=== PATIENT | male | born 1955 | race Caucasian/White ===

== ENCOUNTER 2019-12-01 08:04 | Outpatient (CLI) | payer BC, SELFPAY ==
--- NOTE | ~2019-12-01 | US_ITS ---
EXAMINATION: US right upper quadrant EXAM DATE: 12/01/2019 08:31 INDICATION: Elevated liver enzymes. TECHNIQUE: Multiple grayscale and Doppler images of the abdomen right upper quadrant were obtained (b y a technologist who performed the scan) and subsequently reviewed. There is no prior study for dominic almonte. FINDINGS: The pancreatic head and body are normal in appearance. The pancreatic tail is not visualized. There is echogenic liver parenchyma, hepatic steatosis. There are no focal liver lesions identified. Th ere is no evidence of intrahepatic biliary duct dilation. Portal venous flow was seen in the hepatop edal, normal direction and has normal Doppler waveform. No right-sided hydronephrosis. Common bile duct measures 4 mm, which is normal. The gallbladder wall is normal in thickness, with ex pected amount of distention. No sonographic evidence of pericholecystic fluid. There is no cholelit hiases. Technologist performing exam reports patient did not demonstrate sonographic Boss's sign. Please note that this sign is less reliable in patients who have received pain medication. IMPRESSION: 1. Unremarkable abdominal ultrasound exam. Reviewed, dictated and finalized at location A. ING STATION LABORER
== END 2019-12-01 08:05 | disposition home or self-care (01) ==
PROVIDERS: PCP Internal Medicine; Visit Provider Internal Medicine
DX: R79.89 Other specified abnormal findings of blood chemistry (principal)
CPT/HCPCS: 76705

== ENCOUNTER 2019-12-02 08:11 | Outpatient (CLI) | payer BC, SELFPAY ==
--- NOTE | 2019-12-30 10:39 | WPDHOLTEREM ---
Holter/Event Monitor Holter/Event Monitor Date of procedure: 12/02/19 Procedure Type: 30 day event monitor Indications: Palpitations Conclusion: 1. 30 day event monitor between 12/02/19-12/31/19. This is a symptoms or auto- triggered event monitor. There are 10 available transmissions for analysis. 2. Underlying rhythm is sinus rhythm. Based on transmissions, HR range 52-69 bpm. 3. There is one PAC and 3 PVC's in the available transmissions. 4. No supraventricular or ventricular arrhythmias. 5. No significant pauses greater than 3 seconds. 6. Patient reports 4 symptoms of skipped beats and symptom other than listed which demonstrate sinus rhythm, HR range 52-64 bpm and one PVC.
== END 2019-12-02 08:12 | disposition home or self-care (01) ==
LOC: CHSCARD 08:14
PROVIDERS: PCP Internal Medicine; Visit Provider Internal Medicine
DX: R00.2 Palpitations (principal); R94.31 Abnormal electrocardiogram [ECG] [EKG]
CPT/HCPCS: 93270

== ENCOUNTER 2021-10-04 17:02 | Outpatient (CLI) | payer BC, MEDICARE, OTHER, SELFPAY ==
--- NOTE | ~2021-10-04 | XR_ITS ---
EXAMINATION: XR hip BI wo pelvis DATE: 10/04/2021 17:30 INDICATION: Bilateral hip pain with worsening on the left TECHNIQUE: Anteroposterior and frog-leg lateral views of the left hip and anteroposterior and frog-le g lateral views of the right hip were obtained. COMPARISON: None. FINDINGS: Normal alignment at both hips. No fracture or suspected avascular necrosis. There is bilateral decrea sed femoral head neck offset. Moderate left and mild right hip osteoarthritis. Mild right sacroiliac osteoarthritis. Small left iliopsoas enthesopathic ossicle at the left lesser trochanter. Phlebolith in the left hemipelvis. IMPRESSION: 1. Moderate left and mild right hip osteoarthritis. Reviewed, dictated and finalized at location H. RECAPPING MACHINE OPERATOR
--- NOTE | ~2021-10-04 | XR_ITS ---
EXAMINATION: XR lumbar spine 2-3V DATE: 10/04/2021 17:30 INDICATION: Lumbar radiculopathy with bilateral hip pain. TECHNIQUE: Anteroposterior and lateral views of the lumbar spine, and cone-down lateral view of the l umbosacral junction were obtained. COMPARISON: Lumbar spine MR dated 07/14/2005 FINDINGS: No significant change in 3 mm retrolisthesis L5 on S1. Normal alignment and more cephalad lumbar spin e. Vertebral body heights are normal. Interval progression of moderate disc height loss at L5-S1. Mor e cephalad lumbar and lower thoracic disc heights are normal. Lung bases are clear no pleural effusio n. Normal heart size. Unremarkable bowel gas pattern. IMPRESSION: 1. 3 mm retrolisthesis L5 on S1 with progression of now moderate disc height loss at L5-S1. Reviewed, dictated and finalized at [facility]. TY INSURANCE COMMISSIONER IMPRESSION: 1. 3 mm retrolisthesis L5 on S1 with progression of now moderate disc height lo ss at L5-S1.
== END 2021-10-04 17:03 | disposition home or self-care (01) ==
LOC: CHSIMG 17:11
PROVIDERS: PCP Internal Medicine; Visit Provider Internal Medicine
DX: M54.16 Radiculopathy, lumbar region (principal); M25.552 Pain in left hip
CPT/HCPCS: 72100; 73521

== ENCOUNTER 2021-10-21 06:51 | Outpatient (CLI) | payer MEDICARE, OTHER, SELFPAY ==
--- NOTE | ~2021-10-21 | MR_ITS ---
EXAMINATION: MR hip LT wo con DATE: 10/21/2021 08:13 INDICATION: Pain, numbness and tingling radiating into the left lower limb. TECHNIQUE: Magnetic resonance imaging (MRI) of the left hip was performed without intravenous contra st. Sequences included full-field axial PD-weighted FS FSE and T1-weighted FSE, coronal of the pelvis with PD-weighted FS FSE, small field of view of the left hip with axial PD-weighted FS FSE, sagitta l PD-weighted FS FSE and coronal PD weighted FS FSE. COMPARISON: None FINDINGS: Bones/labrum/cartilage: Alignment is normal. No fracture, avascular necrosis or pathologic marrow replacing process. Diffuse degenerative tearing of the bilateral acetabular labrum. Moderate to severe left hip osteoarthritis full/near full-thickness cartilage loss at the superior and anterosuperior right hip joint space with underlying subarticular edema at the superior acetabulum and mild cystlike changes along the anteros uperior left femoral head. Moderate-sized marginal osteophytes along the left femoral head. Additiona l mild to moderate osteoarthritis at the right hip with cystic change along the posterior superior ri m of the right acetabulum. Fluid: Asymmetric small left hip joint effusion/synovitis. Soft tissues: Normal and symmetric muscle bulk and signal in the pelvis and visualized proximal thighs. The iliopso as, gluteal and proximal hamstring tendons are normal. Limited evaluation of visceral organs of the p gabriele is unremarkable. Very small fat-containing left inguinal hernia. No pathologically enlarged pel talisha/inguinal lymphadenopathy. IMPRESSION: 1. Moderate to severe left hip osteoarthritis with diffuse degenerative tearing of the left acetabula r labrum and small left hip joint effusion/synovitis.. 2. Mild to moderate right hip osteoarthritis also with labral degeneration. Reviewed, dictated and finalized at location A. MBLER TRACTOR IMPRESSION: 1. Moderate to severe left hip osteoarthritis with diffuse degenerative tearing of the left acetabular labrum and small left hip joint effusion/synovitis.. 2. Mild to moderate right hip osteoarthritis also with labral degeneration.
--- NOTE | ~2021-10-21 | MR_ITS ---
EXAMINATION: MR lumbar spine wo con DATE: 10/21/2021 08:13 INDICATION: Lumbar radiculopathy. TECHNIQUE: Magnetic resonance imaging (MRI) of the lumbar spine was performed without intravenous con trast. Sequences included sagittal T2-weighted FSE, sagittal T2-weighted FS FSE, sagittal T1-weighted FSE, and axial T2-weighted FSE. COMPARISON: Lumbar spine MRI 07/14/2005, radiographs 10/04/2021 FINDINGS: There is 6 degrees dextrocurvature of thoracolumbar spine. There is 3 mm retrolisthesis of L5 on S1. Vertebral body heights are normal. There is mildly decreased disc height at L1-L2 and L3-L4 and severely decreased disc height at L5-S1 with endplate remodeling. The distal spinal cord signal intensity is normal. The conus medullaris is at T12-L1. The following disc levels are specifically di scussed: L1-L2: The disc is bulging. There is mild bilateral facet joint osteoarthritis. There is mild left ne ural foraminal stenosis. There is mild central canal stenosis. L2-L3: The disc does not extend beyond the endplate margin. There is moderate bilateral facet joint o steoarthritis. There is no neural foraminal stenosis. There is no central canal stenosis. L3-L4: The disc is bulging. There is moderate bilateral facet joint osteoarthritis. There is mild kyler ateral neural foraminal stenosis. There is mild central canal stenosis. L4-L5: The disc is bulging and has an annular fissure. There is mild bilateral facet joint osteoarthr itis. There is mild bilateral neural foraminal stenosis. There is mild central canal stenosis. L5-S1: The disc is bulging with superimposed left central extrusion. There is moderate right and garett re left facet joint osteoarthritis. There is mild bilateral neural foraminal stenosis. There is mild central canal stenosis. There is moderate stenosis of left lateral recess. IMPRESSION: 1. Severe lower lumbar spondylosis. Reviewed, dictated and finalized at location A. INE SETTER AUTOMATIC
== END 2021-10-21 06:52 | disposition home or self-care (01) ==
PROVIDERS: PCP Internal Medicine; Visit Provider Internal Medicine
DX: M54.16 Radiculopathy, lumbar region (principal); M25.552 Pain in left hip
CPT/HCPCS: 72148; 73721

== ENCOUNTER 2022-12-19 11:42 | Outpatient (CLI) | payer MEDICARE, OTHER, SELFPAY ==
--- NOTE | 2022-12-19 12:42 | ECG_ITS ---
Measurements Intervals [place] Rate: 58 P: 35 IA: 166 QRS: 48 QRSD: 101 T: 17 QT: 445 QTc: 439 Interpretive Statements SINUS BRADYCARDIA BASELINE ARTIFACT- I, II, III, AVR, AVL, AVF, V2 BORDERLINE ECG NO PREVIOUS ECG AVAILABLE FOR COMPARISON Electronically Signed On 12-19-2022 13:21:35 INTERNATIONAL ACCOUNT EXECUTIVE by Rosalio Fernandes D.O.
[2022-12-19 13:19] LABS: Basophils Percent Auto 0.3 % (0.2-1.2); Eosinophils Absolute Auto 0.2 K/mm3 (0-0.3); Eosinophils Percent Auto 2.2 % (0-4.4); Hematocrit 43.3 % (42.0-52.0); Hemoglobin 15.4 g/dL (14.0-18.0); Immature Granulocyte Absolute 0.02 K/mm3 (0.00-0.031); Immature Granulocyte Percent A 0.3 % (0-0.5); Lymphocytes Absolute Auto 1.85 K/mm3 (0.9-3.2); Lymphocytes Percent Auto 25.9 % (18.3-44.2); Mean Corpuscular HGB Conc 35.6 g/dl (32-36); Mean Corpuscular Hemoglobin 32.2 pg (26-34); Mean Corpuscular Volume 90.4 fl (80-100); Mean Platelet Volume 9.9 fl (7.4-10.4); Monocytes Absolute Auto 0.7 K/mm3 (0.1-0.6); Monocytes Percent Auto 9.1 % (2.6-8.5); Neutrophils Absolute Auto 4.4 K/mm3 (1.3-6.7); Neutrophils Percent Auto 62.2 % (45.5-73.1); Platelet Count Result 214 k/mm3 (150-375); Red Blood Count 4.79 M/mm3 (4.6-6.20); White Blood Count 7.1 K/mm3 (4.5-10.0)
[2022-12-19 13:23] LABS: Urine Cotinine NEGATIVE
[2022-12-19 13:25] LABS: Albumin Level 4.5 g/dL (3.5-5.1); Anion Gap 4 mmol/L (8-16); Blood Urea Nitrogen 18 mg/dL (9-20); Calcium 8.9 mg/dL (8.4-10.2); Carbon Dioxide 30 mmol/L (22-30); Chloride 105 mmol/L (98-107); Estimated Glomerular Filt Rate > 60; Glucose 94 mg/dL (65-110); Hemoglobin A1C 5.8 % (<5.7); Potassium 4.4 mmol/L (3.4-5.0); Sodium 139 mmol/L (137-145)
== END 2022-12-19 11:43 | disposition home or self-care (01) ==
LOC: ANHSURGERY 11:48
PROVIDERS: PCP Internal Medicine; Visit Provider Orthopaedic Surgery
DX: M16.12 Unilateral primary osteoarthritis, left hip (principal); Z01.818 Encounter for other preprocedural examination; R94.31 Abnormal electrocardiogram [ECG] [EKG]
CPT/HCPCS: 80048; 80307; 82040; 83036; 85025; 87081; 93005

== ENCOUNTER 2023-01-07 00:11 | Day surgery (SDC) | payer MEDICARE, OTHER, SELFPAY ==
[2022-12-19 11:54] VITALS: BMI 27.4
--- NOTE | 2022-12-19 12:16 | PC.NURSE ---
Report to the Outpatient Waiting Room, entrance under the green pavilion located off [facility], at time _0600 on date __01/07/23 . Planned Procedure Time: _0730 . Time changes happen often and if your time is changed the preop area will call you the afternoon before. - You and your visitor will be asked to self-screen and do not enter if you have any COVID symptoms. - Only one visitor is requested with a max of two and NO children visitors are allowed at this time. - The patient visitor may be requested to leave or wait in car when not with patient due to distancing restrictions. - A mask is optional within the hospital at this time. Patients may have clear liquids (water, carbonated beverages, clear teas, apple juice) until 3 hours prior to surgery with a maximum of 20 ounces. - No food from midnight until time of surgery - Infants may have breast milk until 4 hours before surgery, formula 6 hours prior to surgery. - Children will be allowed to drink immediately following surgery. If applicable, please bring a bottle or sippy cup to assist with drinking. Juice, water, soda, and popsicles are readily available. For infants on formula, please bring formula the day of surgery. Pacifiers are allowed. Take the following medications with a SIP of water the morning of surgery: ____NONE DO NOT STOP ANY OF YOUR OTHER PRESCRIPTION MEDICATIONS PRIOR TO SURGERY ?EXCEPT THE FOLLOWING Medications to discontinue per physician IBUPROFEN 7 DAYS PRE OP PER DR NAVA. LAST DOSE 12/30/22 Please no make-up, nail vietnamese, hairspray, perfume, deodorant, or body powder the day of surgery. No jewelry (including any body piercings) or valuables the day of surgery, leave them at home. Please take a shower or bath the night before, or the morning of, surgery with an antibacterial soap. Wear comfortable, loose fitting clothing. Children are encouraged to wear pajamas. - Jewelry must be removed prior to entering the operating room. Rings and piercings that are not removed may be cut off. - The hospital will not accept responsibility for valuables. - Please leave all valuables, including medications, at home the day of surgery. If you are going home after surgery, a licensed lifter/driver must drive you home. - NO public transportation without another adult if you receive anesthesia. - We recommend that an adult stay with you for 24 hours following discharge. - We also recommend that you do not drive, make important decision, drink alcoholic beverages, or take any drugs that were not prescribed by your health care provider for at least 24 hours after your discharge time. For Pediatric surgeries, we recommend two adults accompany the child home. Follow any additional instructions given to you from your surgeon. If you or anyone in your household have experienced Covid symptoms in the past week, please notify your surgeon or the nurse liaison at the phone number below for possible testing. VERBAL AND WRITTEN instructions given to __PATIENT AND PHOEBE and asked if any additional questions and then verbalized understanding. Patient advised to call surgeon office or pre surgery nurse liaison [phone] if any additional questions.
[2022-12-19 12:36] VITALS: BP 142/81; PULSE 58; RESP 18; TEMP 36.5; O2SAT 100
--- NOTE | 2023-01-04 12:24 | PM.IMHP ---
H&P: HPI History of Present Illness Date/Time: 01/04/23 12:24 Chief Complaint: Left hip DJD Narrative: 67-year-old patient of Dr. Santamaria who presents today for a left anterior total hip arthroplasty patient has been having symptoms in the hip for almost a year. Most the pain is in the groin and anterior lateral hip. Patient has been taking [id number] anti-inflammatories without significant improvement of his symptoms. Patient has severe osteoarthritis in the left hip. He feels that he is having symptoms on a daily basis and this is inhibiting his normal daily activities. He feels that his symptoms are severe enough that he is ready to proceed with total hip arthroplasty at this point rather continue nonsurgical treatment. Review of Systems Review of Systems: All systems reviewed & are unremarkable except as noted in HPI and below PMFSH Past Medical History Medical History Hypertension Pain in left leg Surgical History Surgical History Previous back surgery (~2004) Social History Social History Smoking status: Never smoker Additional smoking assessment comments: DENIES ANY FORM OF TOBBACO USE Alcohol intake: current Drinks per week: 3 Substance use: never Lack of Transportation: No Lack of Food: Never True Current Housing: I Have Housing Concerned About Future Housing: No Difficulty Paying Gas/Electric Bills: No Difficulty Paying for Meds: No Currently Unemployed: No Education: Don't Know Difficulty w/ Childcare or Family Care: No Living arrangements: with family Occupation/Education: occupation Spiritual care concerns: No Meds Home Medications and Allergies Home Medications Medication Instructions Recorded Confirmed Type ibuprofen 400 mg tablet 400 mg PO Q6H PRN Pain 12/19/22 12/19/22 History losartan 100 1 tablet PO DAILY 12/19/22 12/19/22 History mg-hydrochlorothiazide 12.5 mg tablet Allergies Allergy/AdvReac Type Severity Reaction Status Date / Time Penicillins Allergy Intermediate HIVES Verified 12/19/22 11:55 Exam Narrative: 67-year-old male, he is 5 ft 11 and 195 lb, BMI is 27. He has normal motor strength to all muscle groups left lower extremity. 2+ dorsalis pedis and posterior artery pulse palpable. His left hip flexes to 120 internally rotates to 0 which causes some anterior lateral hip pain. External rotation to 30 with moderate anterior lateral hip pain. Stinchfield maneuver causes him pain over the anterior groin up to the lateral hip. He has normal abduction strength lateral position. He walks with a mild limp. Skin around the hip and groin crease are normal. He has some numbness to the plantar heel to light touch testing and to the central thigh since his back surgery. Resp: Auscultation: clear to auscultation bilaterally Cardio: Rate: regular rate Rhythm: regular rhythm Assessment and Plan Assessment and plan (1) Hip arthritis: Code(s): M16.10 - Unilateral primary osteoarthritis, unspecified hip Status: Acute Plan 67-year-old male who has severe osteoarthritis left hip with severe symptoms on a daily basis. Again he feels he is ready to proceed with total hip arthroplasty. Surgical procedure as well as the risks and complications were discussed in detail and all questions were answered and we will proceed. Patient will avoid any aspirin ibuprofen products 1 week prior to surgery. He will see his primary care for pre-surgical clearance. We will plan use Eliquis for DVT prophylaxis postoperatively. His nasal swab was negative. Chem panel was all within normal limits creatinine 0.8. Hemoglobin 15.4 and platelets are 214.
[2023-01-07] VITALS (23 sets, daily range): BP systolic 102–137; BP diastolic 58–84; PULSE 56–86; RESP 12–20; TEMP 36.4–36.6; O2SAT 66–100
--- NOTE | ~2023-01-07 | XR_ITS ---
EXAMINATION: XR hip LT 1V w AP pelvis DATE: 01/07/2023 10:58 INDICATION: Left hip arthroplasty. Postop. TECHNIQUE: An anteroposterior view of the pelvis and single view of left hip were obtained. COMPARISON: Pelvis and hip radiograph 10/04/2021 FINDINGS: There is a total left hip arthroplasty in near-anatomic alignment. No fracture. There is mi ld right hip osteoarthritis. There is gas in the left hip joint and in the soft tissues near left hip , consistent with recent surgery. A surgical drain is noted. IMPRESSION: 1. Total left hip arthroplasty in near-anatomic alignment. 2. Mild right hip osteoarthritis. Reviewed, dictated and finalized at location A.
--- NOTE | ~2023-01-07 | XR_ITS ---
EXAMINATION: XR surgery orthopedic DATE: 01/07/2023 10:58 INDICATION: Left hip osteoarthritis. TECHNIQUE: 2 intraoperative fluoroscopic views of left hip were obtained. I was not present. Fluorosc opy exposure time was 59 seconds. COMPARISON: Left hip radiographs 10/04/2021 FINDINGS: There is a total left hip arthroplasty in near-anatomic alignment. No fracture. IMPRESSION: 1. Total left hip arthroplasty in near-anatomic alignment. Reviewed, dictated and finalized at location A.
[2023-01-07] MEDS: LACTATED RINGERS 1,000 ML 30 ML IV CONT ×2 (06:35→10:57)
--- NOTE | 2023-01-07 06:45 | WPDANESEPPF ---
Anes - Initial Pre Proc Eval Procedure: Operation Date: 01/07/23 07:30 Proposed Procedures p Left Total Hip Arthroplasty, Anterior Approach - Jeremías Cardona MD Date/Time: 01/07/23 06:45 Surgeon: Jeremías Cardona MD Pre Op Diagnosis: O A LT Hip Patient Data Age: 67 Gender: M Height: 1.8 m Weight: 89.3 kg Last Vital Signs Temp 36.5 C 12/19/22 12:36 Pulse 58 L 12/19/22 12:36 Resp 18 12/19/22 12:36 BP 142/81 H 12/19/22 12:36 Pulse Ox 100 12/19/22 12:36 O2 Del Method Room Air 12/19/22 12:36 Allergies Allergy/AdvReac Type Severity Reaction Status Date / Time Penicillins Allergy Intermediate HIVES Verified 12/19/22 11:55 Home Medications Medication Instructions Recorded Confirmed Type ibuprofen 400 mg tablet 400 mg PO Q6H PRN Pain 12/19/22 12/19/22 History losartan 100 1 tablet PO DAILY 12/19/22 12/19/22 History mg-hydrochlorothiazide 12.5 mg tablet Patient hx anesthesia problems: none Family hx anesthesia problems: none Results Review: All pre-operative results and documents have been reviewed as part of the pre-operative evaluation. [facility] Past Medical History Medical History (Updated 01/07/23 @ 06:47 by Parth Spence DO) Hip arthritis Hypertension Pain in left leg Surgical History Surgical History Previous back surgery (~2004) Social History Social History Smoking status: Never smoker Additional smoking assessment comments: DENIES ANY FORM OF TOBBACO USE Alcohol intake: current Drinks per week: 3 Substance use: never Lack of Transportation: No Lack of Food: Never True Current Housing: I Have Housing Concerned About Future Housing: No Difficulty Paying Gas/Electric Bills: No Difficulty Paying for Meds: No Currently Unemployed: No Education: Don't Know Difficulty w/ Childcare or Family Care: No Living arrangements: with family Occupation/Education: occupation Spiritual care concerns: No Anes - Eval Final PreProcedure Day of Procedure 03/27/23 06:45 Patient weight: overweight Heart: regular rate and rhythm Lungs: clear to auscultation Airway: Mallampati scale class II Neurological: alert and oriented Last oral intake: >/= 8 hours ASA classification: II Emergent: no Anesthetic plan: proceed Anesthesia type and monitoring: general ETT and standard monitoring Results Review: All pre-operative results and documents have been reviewed as part of the pre-operative evaluation. Informed Consent: The patient's anesthetic plan and its attendant risks and benefits were discussed with the patient/family/POA. Questions were solicited and answers provided to the satisfaction of the patient/family/POA.
--- NOTE | 2023-01-07 07:10 | WPDHPUPDATE1 ---
History and Physical Update Update Date/Time: 01/07/23 07:10 History and Physical has been reviewed, including an updated exam of the patient. There are NO changes in the patient's condition. Risks, benefits, and alternatives have been discussed and questions answered. Patient agrees to proceed with procedure.
[2023-01-07] MEDS: ceFAZolin 2 GM/D5W 50 ML 2 GM/50 ML BAG IVPB (07:23)
[2023-01-07] MEDS: ceFAZolin SODIUM 1 GM VIAL 3 GM (08:09)
[2023-01-07] MEDS: TRANEXAMIC ACID 1,000 MG/10 ML AMPUL 1000 MG IV PUSH (10:22)
[2023-01-07] MEDS: ceFAZolin SODIUM 1 GM VIAL IV PUSH (10:22)
[2023-01-07] MEDS: KETOROLAC 15 MG/ML VIAL (*BKC) IV PUSH ×3 (10:28→22:44)
--- NOTE | 2023-01-07 10:43 | W.PM.PROC2 ---
Procedure Note - Detailed Date of Procedure 01/07/23 Pre-op Diagnosis O A LT Hip Post-op Diagnosis Same Procedure Performed Left total hip arthroplasty direct anterior approach Surgeon Jeremías Cardona MD Manager [employer] Anesthesia General Description of Procedure Patient was brought to the operating room and general anesthesia was administered. He received 2 g Ancef weight based vancomycin 1 g of tranexamic acid preoperatively. A Quispe was placed per Anesthesia. The feet were padded and boots applied and he was transferred to the [facility] table and the left hip prepped draped usual fashion. A 10 cm longitudinal incision was made starting 3 cm lateral to the ASIS. Dissection was carried down through the subcutaneous fat exposing the fascia over the tensor fascia riki which was longitudinally incised in its midportion elevating the fascia over the anterior 50% of the tensor fascia riki muscle. Interval between TFL and rectus femoris developed. He had 2 layers of crossing branches of ascending lateral femoral circumflex vessels and these were both ligated with suture divided. Capsule was exposed anteriorly retractor placed. Hip abducted internally rotated and the gluteus minimus elevated off the lateral capsule. The abductor musculature looked excellent. A an inverted T-incision was made and femoral neck osteotomy made according to preoperative templating. Napkin ring of bone removed. The femoral head was very hypertrophic peripherally on the periphery measured 56 mm diameter. A he had a shallow acetabulum. Hemostasis was achieved the acetabulum exposed and the prominent labrum excised and residual articular cartilage was curetted. Medial osteophyte almost obliterated the fovea the leg was extended externally rotated the table hook in place and the interval between conjoined tendon and piriformis incised which allowed piriformis to flipped not half to recessed the conjoined tendon. The leg back in horizontal position traction external rotation the acetabulum was prepared. We medialized with a 44 Reamer and using fluoroscopy the to assist with reaming, we reamed up to 53 mm which did not reach the periphery and 55 mm Reamer did reach the periphery. The 55 trial had fair bite the 56 would not see. We lightly reamed with a 56 and then chose the 56 [place] shell which we impacted and fully seated with excellent press fit. The cup was flush the anterior rim and about 4 mm proud posteriorly and posterior superiorly. A single screw was placed in the ilium with excellent purchase and the 36 inner diameter polyethylene liner placed without difficulty. The cup was placed at 40? of abduction and anteversion matching his anatomy. The leg was externally rotated extended with the table hook and we broached to a size 6 which was difficult to seat but did have a tiny bit of torsional play. We trialed and I could see that the broach was in a little bit of varus and still undersized a bit and our neck cut is appropriate. We broached to a size 7 which gave excellent torsional stability and was tight in the proximal femur and we trialed and leg lengths were equal and stability was appropriate with appropriate Shuck. Offset looked appropriate radiographically and matched our preoperative template plan. Minimal calcar planing was necessary and the size 7 high offset Actis stem was fully seated with a tight fit. We trialed 1 more time confirming the +5 head was appropriate and after this we cleaned and dried the trunnion and impacted the +5 ceramic 36 mm head. Wound was irrigated with antibiotic solution and hip reduced stability reconfirmed local anesthetic cocktail injected the soft tissues. Superior capsular arthrotomy closed with 1. Vicryl. The fascia closed with running 1. Vicryl drain in the subcu skin with 2 subcutaneous Vicryl and glue EBL was 400 cc. 200 cc given back as Cell Saver. He received 2 additional g of Ancef and 1 more TXA at time of wound closure
--- NOTE | 2023-01-07 11:03 | PM.OP ---
Procedure Note - Brief Procedure Note - Brief Date of procedure: 01/07/23 Pre-op diagnosis: O A LT Hip Left hip DJD Procedure performed: left total hip arthroplasty anterior approach Description of procedure: 67-year-old male who underwent left total hip arthroplasty anterior approach on 01/07. I was involved in the procedure including positioning patient on the OR table 1st assisting to time surgery as well as getting patient to recovery. Total time was 4:00 hours Surgeon: MONI Campoverde
[2023-01-07] MEDS: fentaNYL CITRATE INJ (*CRX) 100 MCG/2 ML VIAL 25 MCG IV PUSH ×6 (11:22→13:13)
--- NOTE | 2023-01-07 14:50 | ADMGEN ---
This patient, Blake Samaniego, was admitted to Medical Room 255-. Patient/family oriented to hospital policies and general routines including ID bracelet, bed and alarms, visiting hours, pain management, procedures, bathroom and other care routines, personal items, smoking policy, room service/diet, and visiting hours. Information on how to activate the Rapid Response Team has been discussed. Patient/Family are encouraged to report perceived risks to care and to ask questions if they do not understand what they are told or what they should do.
[2023-01-07] MEDS: ceFAZolin 1 GM/NS 50 ML 1 GM/50 ML BAG IVPB ×2 (16:05→22:39)
[2023-01-07] MEDS: oxyCODONE HCL (*CRX) 5 MG TAB IR PO ×2 (16:05→20:42)
[2023-01-07] MEDS: ACETAMINOPHEN 500 MG TABLET 1000 MG PO (17:36)
[2023-01-07] MEDS: FAMOTIDINE 20 MG TABLET PO (20:40)
[2023-01-08] MEDS: oxyCODONE HCL (*CRX) 5 MG TAB IR PO ×3 (00:54→10:24)
[2023-01-08] MEDS: ACETAMINOPHEN 500 MG TABLET 1000 MG PO ×2 (00:54→06:01)
[2023-01-08 04:17] VITALS: BP 105/64; PULSE 58; RESP 18; TEMP 36.4; O2SAT 97
[2023-01-08 06:04] LABS: Basophils Percent Auto 0.2 % (0.2-1.2); Eosinophils Percent Auto 0.1 % (0-4.4); Hematocrit 34.5 % (42.0-52.0); Immature Granulocyte Absolute 0.07 K/mm3 (0.00-0.031); Immature Granulocyte Percent A 0.5 % (0-0.5); Lymphocytes Absolute Auto 1.01 K/mm3 (0.9-3.2); Lymphocytes Percent Auto 7.9 % (18.3-44.2); Mean Corpuscular HGB Conc 34.8 g/dl (32-36); Mean Corpuscular Hemoglobin 31.7 pg (26-34); Mean Platelet Volume 9.9 fl (7.4-10.4); Monocytes Absolute Auto 1.3 K/mm3 (0.1-0.6); Monocytes Percent Auto 10.1 % (2.6-8.5); Neutrophils Absolute Auto 10.3 K/mm3 (1.3-6.7); Neutrophils Percent Auto 81.2 % (45.5-73.1); Platelet Count Result 173 k/mm3 (150-375); Red Blood Count 3.79 M/mm3 (4.6-6.20); White Blood Count 12.7 K/mm3 (4.5-10.0)
--- NOTE | 2023-01-08 06:15 | PM.DS ---
DS: Admitting Diagnosis Discharge Date 01/08 Admitting Diagnosis Left hip DJD DS: Discharge Diagnosis Discharge Diagnosis (1) Hip arthritis: Code(s): M16.10 - Unilateral primary osteoarthritis, unspecified hip Status: Acute DS: Summary Hospital Course Hospital Course: 67-year-old male who underwent left anterior total hip arthroplasty on 01/07. Underwent the procedure without complications. Postoperatively he has been afebrile vital signs been stable. Neurovascularly he is intact. His dressing is dry. His drain is out. He was up walking the day of surgery with physical therapy. Pain was controlled with scheduled Tylenol and oxycodone 5 mg. He is on Celebrex 200 mg daily for the 1st 10 days for heterotopic bone formation prophylaxis. He will be discharged home on 01/08. Patient is weight-bearing as tolerated. He is on Eliquis for DVT prophylaxis. He is also on 1 week of doxycycline when he goes home as well. He will be also on Senokot and MiraLax for constipation. Patient was advised to keep leg elevated at home prevent swelling. He may transition to the cane is as comfort allows. The time of dictation morning labs on postop day 1 were not completed yet. Patient was advised any questions or concerns he is to call the office otherwise we will see him at his appointed dates Time Spent with Patient Time attestation: Total time spent providing and/or coordinating discharge services: DS: Data Data Completed and Pending Labs on day of discharge: Labs from last 24 hours 01/08/23 01/08/23 01/07/23 05:24 05:24 06:34 WBC Pending RBC Pending Hgb Pending Hct Pending MCV Pending MCH Pending MCHC Pending RDW Pending Plt Count Pending MPV Pending Immature Gran % (Auto) Pending Neut % (Auto) Pending Lymph % (Auto) Pending [place] % (Auto) Pending Eos % (Auto) Pending Baso % (Auto) Pending Lymph # (Auto) Pending [place] # (Auto) Pending Eos # (Auto) Pending Baso # (Auto) Pending Abs Immat Gran (auto) Pending Absolute Neuts (auto) Pending Absolute Nucleated RBC Pending Nucleated RBC % Pending Sodium Pending Potassium Pending Chloride Pending Carbon Dioxide Pending Anion Gap Pending BUN Pending Creatinine Pending Estim Creat Clear Calc Pending Estimated GFR Pending Glucose Pending Calcium Pending Blood Type O Positive Antibody Screen Negative Discharge Plan Discharge Patient Disposition: Home, Self-Care Discharge Instructions: JEREMÍAS CARDONA M.D [facility], [place] [id number] [place] [address] POST-OPERATIVE DISCHARGE INSTRUCTIONS ANTERIOR TOTAL HIP ARTHROPLASTY 1. Move toes/feet up and down every hour while awake. 2. Be up walking every hour while awake. 3. Use cane in hand opposite of side of hip surgery or walker as comfort allows. Avoid sitting in a chair unless eating, receiving visitors or using the toilet. 4. When resting, lie on back with leg elevated above heart to minimize swelling. Significant swelling could indicate a blood clot and if this occurs, call the office (or go to the ER) to have a venous ultrasound performed. 5. Wound Care: Keep dry sponge on wound for 2 weeks. Use minimal tape. 6. Follow weight bearing status as instructed. 7. May shower with dressing off. Stand Alone Forms: General Discharge Instructions Follow-up/Referrals: Jeremías Cardona MD [Physician] - Keep Reg. Scheduled Appt. Discharge Medications: New celecoxib [Celebrex] 200 mg Capsule 200 mg PO DAILY Qty: 10 0RF polyethylene glycol 3350 [Miralax] 17 gram Powder In Packet 17 g PO QAM Qty: 30 0RF sennosides-docusate sodium [Senokot-S] 8.6-50 mg Tablet 2 tab PO BID Qty: 60 0RF acetaminophen 500 mg Tablet 1,000 mg PO Q6HR Qty: 90 0RF doxycycline hyclate 100 mg Tablet 100 mg PO Q12HR Q
[2023-01-08 06:16] LABS: Anion Gap 3 mmol/L (8-16); Blood Urea Nitrogen 20 mg/dL (9-20); Calcium 8.2 mg/dL (8.4-10.2); Carbon Dioxide 29 mmol/L (22-30); Chloride 103 mmol/L (98-107); Estimated CRCL calculation 68 ml/min; Estimated Glomerular Filt Rate > 60; Glucose 124 mg/dL (65-110); Potassium 4.4 mmol/L (3.4-5.0); Sodium 135 mmol/L (137-145)
--- NOTE | 2023-01-08 06:17 | PM.PNORT ---
Subjective Subjective Date/Time Seen: 01/08/23 06:17 Postop day 1 patient is alert. He is afebrile vital signs are stable. His drain is out. He is up with physical therapy yesterday. Pain overall is well controlled. Neurovascularly he is intact. Plan will be to have the patient work with therapy this morning and then discharge to home either later this morning or early this afternoon. Labs are pending. Objective Data Vital Signs Vital Signs: Vital Signs - 24 hr 01/07/23 06:26 01/07/23 10:57 01/07/23 11:12 Temperature 36.6 C 36.4 C Pulse Rate 56 L 66 66 Respiratory Rate 18 20 16 Blood Pressure 136/83 116/69 102/84 Pulse Oximetry 100 100 100 Oxygen Delivery Room Air Simple Face Mask Simple Face Mask Oxygen Flow Rate 6 6 01/07/23 11:26 01/07/23 11:40 01/07/23 11:55 Temperature Pulse Rate 67 70 70 Respiratory Rate 16 14 17 Blood Pressure 124/81 137/76 126/73 Pulse Oximetry 66 L 97 95 Oxygen Delivery Room Air Room Air Room Air Oxygen Flow Rate 01/07/23 12:10 01/07/23 12:25 01/07/23 12:40 Temperature Pulse Rate 70 73 74 Respiratory Rate 13 13 12 Blood Pressure 116/79 118/76 116/67 Pulse Oximetry 96 96 97 Oxygen Delivery Room Air Room Air Room Air Oxygen Flow Rate 01/07/23 12:55 01/07/23 13:10 01/07/23 13:25 Temperature Pulse Rate 77 80 75 Respiratory Rate 18 14 15 Blood Pressure 124/84 126/80 124/82 Pulse Oximetry 95 95 95 Oxygen Delivery Room Air Room Air Room Air Oxygen Flow Rate 01/07/23 13:40 01/07/23 13:55 01/07/23 14:10 Temperature Pulse Rate 75 70 86 Respiratory Rate 19 14 12 Blood Pressure 118/78 119/73 122/80 Pulse Oximetry 95 98 Oxygen Delivery Room Air Room Air Oxygen Flow Rate 01/07/23 14:25 01/07/23 15:08 01/07/23 15:45 Temperature Pulse Rate 73 Respiratory Rate 12 18 Blood Pressure 123/78 Pulse Oximetry 98 98 Oxygen Delivery Room Air Room Air Room Air Oxygen Flow Rate 01/07/23 14:37 01/07/23 14:52 01/07/23 15:22 Temperature 36.6 C 36.6 C 36.4 C L Pulse Rate 72 69 65 Respiratory Rate 18 18 16 Blood Pressure 119/73 112/75 125/69 Pulse Oximetry 94 98 98 Oxygen Delivery Oxygen Flow Rate 01/07/23 16:22 01/07/23 19:12 01/07/23 23:14 Temperature 36.6 C 36.6 C 36.4 C Pulse Rate 69 70 68 Respiratory Rate 16 18 18 Blood Pressure 111/68 122/68 105/58 L Pulse Oximetry 98 97 97 Oxygen Delivery Oxygen Flow Rate 01/08/23 04:17 Temperature 36.4 C Pulse Rate 58 L Respiratory Rate 18 Blood Pressure 105/64 Pulse Oximetry 97 Oxygen Delivery Oxygen Flow Rate Intake/Output Intake/Output: Intake & Output 01/05/23 01/06/23 01/07/23 01/08/23 23:59 23:59 23:59 23:59 Intake Total 2310 400 Output Total 700 550 Balance 1610 -150 Meds/Results Medications: Active Medications Generic Name Dose Route Start Last Admin Trade Name Freq PRN Reason Stop Dose Admin Acetaminophen 1,000 mg 01/07/23 18:00 01/08/23 06:01 Acetaminophen 500 Mg Tablet PO 1,000 mg Q6HR [facility] Administration Apixaban 2.5 mg 01/08/23 09:00 Apixaban 2.5 Mg Tablet PO 02/11/23 21:01 Q12HR [facility] Celecoxib 200 mg 01/08/23 09:00 Celecoxib 200 Mg Capsule PO DAILY [facility] Doxycycline Hyclate 100 mg 01/08/23 09:00 Doxycycline Hyclate 100 Mg Tablet PO Q12HR [facility] Famotidine 20 mg 01/07/23 21:00 01/07/23 20:40 Famotidine 20 Mg Tablet PO 20 mg Q12HR [facility] Administration Hydrochlorothiazide 12.5 mg 01/08/23 09:00 Hydrochlorothiazide 12.5 Mg Capsule PO QAM [facility] Hydroxyzine HCl 50 mg 01/07/23 14:37 Hydroxyzine Hcl 25 Mg Tablet PO Q4H PRN Itching Vancomycin HCl 1,000 mg in 250 mls @ 250 mls/hr 01/07/23 19:00 01/07/23 19:45 Vancomycin 1,000 Mg/D5w 250 Ml IVPB 01/08/23 07:59 Infused Q12H [facility] Infusion Cefazolin Sodium 1 gm in 50 mls @ 100 mls/hr 01/07/23 15:00 01/07/23 23:10 Ancef 1 Gm/Ns 50 Ml IVPB 01/08/23 07:29 Infused Q8H [facility] Infusion Lo
[2023-01-08] MEDS: ceFAZolin 1 GM/NS 50 ML 1 GM/50 ML BAG IVPB (06:19)
[2023-01-08] MEDS: SENNA/DOCUSATE SODIUM TABLET 2 TAB PO (08:07)
[2023-01-08] MEDS: DOXYCYCLINE HYCLATE 100 MG TABLET PO (08:08)
[2023-01-08] MEDS: CELECOXIB 200 MG CAPSULE PO (08:08)
[2023-01-08] MEDS: FAMOTIDINE 20 MG TABLET PO (08:08)
[2023-01-08] MEDS: APIXABAN 2.5 MG TABLET PO (08:08)
[2023-01-08] MEDS: LOSARTAN POTASSIUM 100 MG TABLET PO (08:09)
[2023-01-08] MEDS: polyethylene glycoL 3350 17 GM POWD.PACK PO (08:09)
[2023-01-08] MEDS: hydroCHLOROthiazide 12.5 MG CAPSULE PO (08:09)
--- NOTE | 2023-01-08 09:57 | P.PNAN_ITS ---
Anes - Prog Note Post-Op Date/Time: 01/08/23 09:57 Cardiovascular status: normal Respiratory status: normal Airway patency: baseline Mental status: baseline Post-Op hydration status: normal Vital Signs: Last Vital Signs Temp 36.4 C 01/08/23 04:17 Pulse 58 L 01/08/23 04:17 Resp 18 01/08/23 04:17 BP 105/64 01/08/23 04:17 Pulse Ox 97 01/08/23 04:17 O2 Del Method Room Air 01/07/23 15:45 O2 Flow Rate 6 01/07/23 11:12 Pain Score (VAS): 11/23 I/O: Intake & Output 01/07/23 01/08/23 01/08/23 23:59 07:59 15:59 Intake Total 1760 450 480 Output Total 700 550 Balance 1060 -100 480 Laboratory Tests 01/08/23 05:24 01/08/23 05:24 01/08/23 01/08/23 05:24 05:24 WBC 12.7 H RBC 3.79 L Hgb 12.0 L D Hct 34.5 L MCV 91.0 MCH 31.7 MCHC 34.8 RDW 12.0 Plt Count 173 MPV 9.9 Immature Gran % (Auto) 0.5 Neut % (Auto) 81.2 H Lymph % (Auto) 7.9 L [place] % (Auto) 10.1 H Eos % (Auto) 0.1 Baso % (Auto) 0.2 Lymph # (Auto) 1.01 [place] # (Auto) 1.3 H Eos # (Auto) 0.0 Baso # (Auto) 0.0 Abs Immat Gran (auto) 0.07 H Absolute Neuts (auto) 10.3 H Absolute Nucleated RBC 0.0 Nucleated RBC % 0.0 Sodium 135 L Potassium 4.4 Chloride 103 Carbon Dioxide 29 Anion Gap 3 L BUN 20 Creatinine 1.00 Estim Creat Clear Calc 68 Estimated GFR > 60 Glucose 124 H Calcium 8.2 L Post-procedural complaints: none Patient Feedback: Patient satisfied with anesthetic care.
[2023-01-08 10:00] VITALS: BP 115/62; PULSE 63; RESP 18; TEMP 36.7; O2SAT 98
== END 2023-01-08 11:27 | disposition home or self-care (01) ==
LOC: ANHSURGERY 06:18 → ANH2MED 14:42
PROVIDERS: Physician Assistant Surgical; PCP Internal Medicine; Visit Provider Orthopaedic Surgery
PROC: (CPT 27130; principal; 2023-01-07 07:30)
DX: M16.12 Unilateral primary osteoarthritis, left hip (principal); I10 Essential (primary) hypertension
CPT/HCPCS: 27130; 36415; 73501; 80048; 85025; 86850; 86900; 86901; 97110; 97161; 97165; 97530; 97535; 99199; A9270; C1776; J0171; J0690; J1100; J1170; J1885; J2250; J2270; J2405; J2704; J2710; J2795; J3010; J3370; J7030; J7120

== ENCOUNTER 2023-01-11 18:39 | Emergency (ER) | payer MEDICARE, OTHER, SELFPAY ==
[2023-01-11 18:43] VITALS: BP 150/83; PULSE 70; RESP 18; TEMP 36.6; O2SAT 100
--- NOTE | 2023-01-11 19:05 | ED.GENADULT ---
HPI - General Adult General Chief complaint: Extremity Problem,Nontraumatic Stated complaint: left leg infection/post op Time Seen by Provider: 01/11/23 18:53 History of Present Illness HPI narrative: 67-year-old male presented the emergency department for evaluation of low-grade fever and left leg swelling. Patient had a hip replacement by Dr. Cardona on 01/07. Patient has been taking his oxycodone, Celebrex and Eliquis. Patient states that he felt that his left knee had some increased warmth to it and patient had a low-grade fever at home. Patient reports he did call the Ortho on-call and he was instructed to present to the ED for evaluation. Patient states that by the time he decided to come to the emergency department that he was already beginning to feel improved. Patient denies any current knee pain knee warmth or fever. Patient denies any chest pain or shortness of breath. Related Data Home Medications Medication Instructions Recorded Confirmed losartan 100 1 tablet PO DAILY 12/19/22 01/07/23 mg-hydrochlorothiazide 12.5 mg tablet Allergies Allergy/AdvReac Type Severity Reaction Status Date / Time Penicillins Allergy Intermediate HIVES Verified 01/07/23 15:05 Review of Systems Review of Systems: All systems reviewed & are unremarkable except as noted in HPI and below PMFSH Past Medical History Medical History (Updated 01/11/23 @ 20:28 by Shai Pace MD) Hip arthritis Hypertension Pain in left leg Surgical History Surgical History Previous back surgery (~2004) Social History Social History Smoking status: Never smoker Additional smoking assessment comments: DENIES ANY FORM OF TOBBACO USE Alcohol intake: current Drinks per week: 3 Substance use: never Substance use type: does not use Lack of Transportation: No Lack of Food: Never True Current Housing: I Have Housing Concerned About Future Housing: No Difficulty Paying Gas/Electric Bills: No Difficulty Paying for Meds: No Currently Unemployed: No Education: Don't Know Difficulty w/ Childcare or Family Care: No Living arrangements: with family Occupation/Education: occupation Spiritual care concerns: No Exam Narrative: APPEARANCE: Well appearing, no pain, no distress, well-nourished. HEAD: normocephalic, atraumatic. EYES: PERRLA/EOMI, conjunctivae clear. NOSE: Normal no drainage NECK: Supple. No adenopathy, no masses. RESPIRATORY: Airway patent, respirations nonlabored. Clear to auscultation bilaterally, no rales, rhonchi, wheezing. CARDIOVASCULAR: Regular rate and rhythm without murmurs rubs or gallops. ABDOMINAL: Soft, nontender, nondistended, normal bowel sounds MUSCULOSKELETAL: Moves all extremities. Left knee is well-appearing with no warmth and no limited range of motion. Distal pulses intact. NEURO: Alert. Cranial nerves II through XII intact. Good gait. Good coordination SKIN: Incision on left hip is dressed and well-appearing. No significant erythema, no drainage, incision is intact, no fluctuance or tenderness to palpation PSYCHIATRIC: Normal affect/mood. Course Course Emergency Course: 67-year-old male complaining of left knee warmth and pain with low-grade fever after recent left hip replacement. Differential diagnosis does include septic joint, viral etiology, DVT. Patient is afebrile in the emergency department and is well-appearing. No concern of septic hip with normal range of motion of both hip and knee. Ultrasound is being ordered to rule out for acute DVT. Ultrasound was not available at this time of the night. Patient is already taking Eliquis and I have low clinical concern for a DVT at this time. Patient is afebrile with no leukocytosis. Patient has normal range of motion of the hip and the knee. Patient was negative for COVID flow and influenza. Patient's CMP is sim
[2023-01-11 19:36] LABS: Basophils Percent Auto 0.3 % (0.2-1.2); Eosinophils Absolute Auto 0.1 K/mm3 (0-0.3); Eosinophils Percent Auto 2.2 % (0-4.4); Hemoglobin 11.6 g/dL (14.0-18.0); Immature Granulocyte Absolute 0.04 K/mm3 (0.00-0.031); Immature Granulocyte Percent A 0.6 % (0-0.5); Lymphocytes Absolute Auto 1.34 K/mm3 (0.9-3.2); Lymphocytes Percent Auto 21.3 % (18.3-44.2); Mean Corpuscular HGB Conc 34.1 g/dl (32-36); Mean Corpuscular Hemoglobin 31.6 pg (26-34); Mean Corpuscular Volume 92.6 fl (80-100); Mean Platelet Volume 9.8 fl (7.4-10.4); Monocytes Absolute Auto 0.6 K/mm3 (0.1-0.6); Monocytes Percent Auto 9.1 % (2.6-8.5); Neutrophils Absolute Auto 4.2 K/mm3 (1.3-6.7); Neutrophils Percent Auto 66.5 % (45.5-73.1); Platelet Count Result 208 k/mm3 (150-375); Red Blood Count 3.67 M/mm3 (4.6-6.20); Red Cell Distribution Width 12.1 % (11.5-14.5); White Blood Count 6.3 K/mm3 (4.5-10.0)
[2023-01-11 19:46] LABS: Alanine Aminotransferase 27 U/L (6-50); Albumin Level 3.7 g/dL (3.5-5.1); Alkaline Phosphatase 58 U/L (38-126); Anion Gap 4 mmol/L (8-16); Aspartate Amino Transferase 33 U/L (17-59); Bilirubin,Total 0.8 mg/dL (0.2-1.3); Blood Urea Nitrogen 19 mg/dL (9-20); Calcium 8.4 mg/dL (8.4-10.2); Carbon Dioxide 28 mmol/L (22-30); Chloride 104 mmol/L (98-107); Estimated CRCL calculation 75 ml/min; Estimated Glomerular Filt Rate > 60; Glucose 111 mg/dL (65-110); Potassium 4.2 mmol/L (3.4-5.0); Sodium 136 mmol/L (137-145)
[2023-01-11 20:18] LABS: Influenza A QL RT-PCR Negative (Negative); Influenza B QL RT-PCR Negative (Negative); RSV RNA, RT-PCR Negative (Negative); SARS-CoV-2 RNA PCR Negative
== END 2023-01-11 20:30 | disposition home or self-care (01) ==
PROVIDERS: Emergency Provider Emergency Medicine; PCP Internal Medicine
DX: M79.605 Pain in left leg (principal); Z20.822 Contact with and (suspected) exposure to COVID-19; I10 Essential (primary) hypertension; M19.90 Unspecified osteoarthritis, unspecified site
CPT/HCPCS: 36415; 80053; 85025; 87637; 99283

== ENCOUNTER 2023-01-12 07:16 | Outpatient (CLI) | payer MEDICARE, OTHER, SELFPAY ==
--- NOTE | ~2023-01-12 | US_ITS ---
EXAMINATION: US venous doppler [facility] DATE: 01/12/2023 07:50 INDICATION: Left lower limb pain. TECHNIQUE: Grayscale ultrasound images without and with compression and Doppler ultrasound images of the left lower extremity veins were obtained. COMPARISON: None. FINDINGS: The visualized portions of left common femoral vein, profunda (deep) femoral vein, femoral vein, popl iteal vein, peroneal veins, posterior tibial veins, and greater saphenous vein outflow are patent. IMPRESSION: 1. No deep venous thrombosis. Reviewed, dictated and finalized at location A.
== END 2023-01-12 07:17 | disposition home or self-care (01) ==
PROVIDERS: PCP Orthopaedic Surgery; Visit Provider Emergency Medicine
DX: M79.605 Pain in left leg (principal)
CPT/HCPCS: 93971

== ENCOUNTER 2023-02-16 19:06 | Emergency (ER) | payer MEDICARE, OTHER, SELFPAY ==
--- NOTE | ~2023-02-16 | XR_ITS ---
EXAMINATION: XR chest 2V DATE: 02/16/2023 19:23 INDICATION: Cough and fever. TECHNIQUE: Frontal and lateral views of the chest were obtained. COMPARISON: Chest 2 views 05/07/2012 FINDINGS: There is mild atelectasis at left lung base. No pleural effusion or pneumothorax. The heart size is normal. IMPRESSION: 1. Mild atelectasis at left lung base. Reviewed, dictated and finalized at location A.
[2023-02-16 19:14] VITALS: BP 147/93; PULSE 76; RESP 16; TEMP 37.5; O2SAT 99
--- NOTE | 2023-02-16 19:14 | ED.URI ---
HPI - URI/Sore Throat General Chief Complaint: Upper Respiratory Infection Stated Complaint: COUGH Source: patient and RN notes reviewed History of Present Illness HPI Narrative: 67 yo M Presents to urgent care with complaints of a cough and fever today. Pt states he started out with what he thought was allergy symptoms 1 week ago but on Saturday, it had developed into a cough. Pt states he is unable to talk in full sentences sometimes b/c his cough starts up. Pt states his cough kept him up all night. Pt states he began with the fever today. Pt denies any chest pain, SOB, or vomiting. Pt denies any sore throat. Does report a SEGURA, mostly with coughing. Pt took (2) Tylenol pills earlier this afternoon and has taken Delsym without any relief. Related Data Home Medications Medication Instructions Recorded Confirmed losartan 100 1 tablet PO DAILY 12/19/22 02/16/23 mg-hydrochlorothiazide 12.5 mg tablet Allergies Allergy/AdvReac Type Severity Reaction Status Date / Time Penicillins Allergy Intermediate HIVES Verified 02/16/23 19:12 Review of Systems Review of Systems: Pertinent positives and pertinent negatives per HPI. [facility] Past Medical History Medical History (Updated 02/16/23 @ 19:44 by Kelly Vital, MELONY) Hip arthritis Hypertension Pain in left leg Surgical History Surgical History Previous back surgery (~2004) Social History Social History Smoking status: Never smoker Additional smoking assessment comments: DENIES ANY FORM OF TOBBACO USE Alcohol intake: current Drinks per week: 3 Substance use: never Substance use type: does not use Lack of Transportation: No Lack of Food: Never True Current Housing: I Have Housing Concerned About Future Housing: No Difficulty Paying Gas/Electric Bills: No Difficulty Paying for Meds: No Currently Unemployed: No Education: Don't Know Difficulty w/ Childcare or Family Care: No Living arrangements: with family Occupation/Education: occupation Spiritual care concerns: No Comments At the time of my signature, I reviewed and agree with the nursing past medical, surgical, social, and family history. There is no relevant family history pertinent to the patient complaint. Exam Narrative: GENERAL: This is a well-nourished, well-developed patient, in no apparent distress. HEAD: normocephalic, atraumatic. EYES: Sclera clear/white. Vision is grossly intact. EARS: External ears normal, auditory canals clear and without drainage, TMs normal without perforation. Hearing grossly intact. NOSE: External nose normal with no obvious nasal discharge, nares without redness, no rhinorrhea. THROAT: Mucous membranes moist, posterior pharynx clear. NECK: Neck supple, non-tender without lymphadenopathy, masses or thyromegaly. CARDIOVASCULAR: Regular rate and rhythm without murmurs, gallops, or rubs. RESPIRATORY: Clear to auscultation. Breath sounds equal bilaterally. No wheezes, rales, or rhonchi. Pt has a frequent, hacky, cough. SKIN: warm, intact with no suspicious lesions or rash, good texture and turgor. NEURO: awake, alert, and oriented to person, place and time. There were no obvious focal neurologic abnormalities. EXTREMITIES: No clubbing, cyanosis, or edema. No joint tenderness, effusion, or edema noted. Course Course Level of Care: Express Care Visit Vital Signs Vital signs: Vital Signs Temperature 99.5 F 02/16/23 19:14 Pulse Rate 76 02/16/23 19:14 Respiratory Rate 16 02/16/23 19:14 Blood Pressure 147/93 H 02/16/23 19:14 Pulse Oximetry 99 02/16/23 19:14 Temperature 99.5 F 02/16/23 19:14 Pulse Rate 76 02/16/23 19:14 Respiratory Rate 16 02/16/23 19:14 Blood Pressure 147/93 H 02/16/23 19:14 Pulse Oximetry 99 02/16/23 19:14 reviewed MDM - URI/Sore Throat MDM Narrative Me
== END 2023-02-16 19:49 | disposition home or self-care (01) ==
PROVIDERS: Emergency Provider Nurse Practitioner Family; PCP Internal Medicine
DX: J20.8 Acute bronchitis due to other specified organisms (principal); I10 Essential (primary) hypertension
CPT/HCPCS: 71046; 99213; G0463

== ENCOUNTER 2023-04-17 07:09 | Outpatient (CLI) | payer MEDICARE, OTHER, SELFPAY ==
--- NOTE | ~2023-04-17 | XR_ITS ---
EXAMINATION: XR chest 2V DATE: 04/17/2023 07:28 INDICATION: Cough. TECHNIQUE: Frontal and lateral views of the chest were obtained on 3 radiographs. COMPARISON: Chest 2 views 02/16/2023 FINDINGS: The chest demonstrates clear lungs without pneumonia, pleural effusion, or pneumothorax. Th e heart size is normal. IMPRESSION: 1. No acute cardiopulmonary disease. Reviewed, dictated and finalized at location A.
--- NOTE | ~2023-04-17 | US_ITS ---
EXAMINATION: US aorta [facility] DATE: 04/17/2023 07:34 INDICATION: Abdominal aortic aneurysm screening. TECHNIQUE: Grayscale, color Doppler, and pulsed Doppler images of the aorta and common iliac arteries were obtained. COMPARISON: Lumbar spine MRI 10/21/2021 FINDINGS: The aorta is normal in caliber and demonstrates mild atherosclerosis. The right common iliac artery i s normal in caliber. The left common iliac artery is normal in caliber. IMPRESSION: 1. No abdominal aortic aneurysm. Reviewed, dictated and finalized at location A.
== END 2023-04-17 07:10 | disposition home or self-care (01) ==
LOC: CHSIMG 07:12
PROVIDERS: PCP Internal Medicine; Visit Provider Internal Medicine
DX: R05.9 Cough, unspecified (principal); Z13.6 Encounter for screening for cardiovascular disorders
CPT/HCPCS: 71046; 76706

== ENCOUNTER 2023-09-16 09:28 | Outpatient (CLI) | payer MEDICARE, OTHER, SELFPAY ==
--- NOTE | 2023-09-16 09:35 | EST_ITS ---
Patient Info Name: Blake Samaniego Age: 67 years : 1955 Gender: Male Ht: 71 in Wt: 204 lbs BSA: 2.17 m2 HR: 62 bpm BP: 145 / 91 mmHg Heart Rhythm: Sinus Rhythm Technical Quality: Good Exam Date: 09/16/2023 9:46 AM Exam Location: Echo Lab Patient Status: Outpatient Admit Date: 09/16/2023 Staff Ordering Physician: Jamal Santamaria MD Attending Provider: Jmaal Santamaria MD Exam Type: CA stress test treadmill Study Info A treadmill exercise stress test was performed. History/Risk Factors Hypertension: Yes Summary 1. 1. Negative Tony exercise stress test for ischemic ST changes by ECG criteria. 2. 2. Good functional capacity, achieving 13 METs of workload. 3. 3. Baseline hypertension with hypertensive response to exercise. 4. 4. Appropriate HR response to exercise. 5. 5. Appropriate HR recovery at 1 minute post exercise. 6. 6. No imaging with stress testing. Protocol: Tony Stress ECG Details Stage: REST Duration (min): 2 min : 20 sec Speed (mph): 0.0 Grade (%): 0 HR (bpm): 62 SBP (mmHg): 145 DBP (mmHg): 91 METS: --- Stage: REST Duration (min): 8 min : 44 sec Speed (mph): 0.0 Grade (%): 0 HR (bpm): 67 SBP (mmHg): 145 DBP (mmHg): 91 METS: --- Stage: STAGE 1 Duration (min): 1 min : 0 sec Speed (mph): 1.7 Grade (%): 10 HR (bpm): 83 SBP (mmHg): 145 DBP (mmHg): 91 METS: --- Stage: STAGE 1 Duration (min): 2 min : 0 sec Speed (mph): 1.7 Grade (%): 10 HR (bpm): 92 SBP (mmHg): 145 DBP (mmHg): 91 METS: --- Stage: STAGE 1 Duration (min): 3 min : 0 sec Speed (mph): 1.7 Grade (%): 10 HR (bpm): 94 SBP (mmHg): 150 DBP (mmHg): 83 METS: --- Stage: STAGE 2 Duration (min): 1 min : 0 sec Speed (mph): 2.5 Grade (%): 12 HR (bpm): 100 SBP (mmHg): 150 DBP (mmHg): 83 METS: --- Stage: STAGE 2 Duration (min): 2 min : 0 sec Speed (mph): 2.5 Grade (%): 12 HR (bpm): 108 SBP (mmHg): 150 DBP (mmHg): 83 METS: --- Stage: STAGE 2 Duration (min): 3 min : 0 sec Speed (mph): 2.5 Grade (%): 12 HR (bpm): 111 SBP (mmHg): 188 DBP (mmHg): 67 METS: --- Stage: STAGE 3 Duration (min): 1 min : 0 sec Speed (mph): 3.4 Grade (%): 14 HR (bpm): 121 SBP (mmHg): 188 DBP (mmHg): 67 METS: --- Stage: STAGE 3 Duration (min): 2 min : 0 sec Speed (mph): 3.4 Grade (%): 14 HR (bpm): 125 SBP (mmHg): 188 DBP (mmHg): 67 METS: --- Stage: STAGE 3 Duration (min): 3 min : 0 sec Speed (mph): 3.4 Grade (%): 14 HR (bpm): 126 SBP (mmHg): 185 DBP (mmHg): 81 METS: --- Stage: STAGE 4 Duration (min): 1 min : 0 sec Speed (mph): 4.2 Grade (%): 16 HR (bpm): 138 SBP (mmHg): 185 DBP (mmHg): 81 METS: --- Stage: STAGE 4 Duration (min): 2 min : 0 sec Speed (mph): 4.2 Grade (%): 16 HR (bpm): 145 SBP (mmHg): 185 DBP (mmHg): 81 METS: ---
== END 2023-09-16 09:29 | disposition home or self-care (01) ==
LOC: CHSCARD 09:31
PROVIDERS: PCP Internal Medicine; Visit Provider Internal Medicine
DX: R06.00 Dyspnea, unspecified (principal)
CPT/HCPCS: 93017

== ENCOUNTER 2024-10-20 10:05 | Outpatient (CLI) | payer MEDICARE, OTHER, SELFPAY ==
--- OUTSIDE RECORDS SUMMARY | 2024-10-27 04:21 | XMS_ITS | Encounter Summary ---
Author Organization [facility] Address [address] [place] [address]. [place] [address] [place] [address] Care Team Providers Care Army Ranger Name Role Phone Unavailable Primary Care Provider Unavailabl e Encounter Details Date Type Department Care Team (Late st Contact Info) Description 08/18/2013 [facility] [address] [place] [id number] , María Rico MD Social History Tobacco Use Types Packs/Day Years Used Date Smoking Tobacco: Never Assessed Sex and Gender Information Value Date Recorded Sex Assigned at Not on file Legal Sex Male 1:42 AM CDT Gender Identity Not on file Sexual Orientation Not on file documented as of this encounter Plan of Treatment Not on file documented as of this encounter Visit Diagnoses Not on filedocumented in this encounter
--- OUTSIDE RECORDS SUMMARY | 2024-10-27 04:21 | XMS_ITS | Encounter Summary ---
Author Organization [facility] Address [address] [place] [address]. [place] [address] [place] [address] Care Team Providers Care Health Program Analyst Name Role Phone Unavailable Primary Care Provider Unavailabl e Encounter Details Date Type Department Care Team (Late st Contact Info) Description 12/20/2000 [facility] [address] [place] [address] , aMría Rico MD Social History Tobacco Use Types [...]
--- OUTSIDE RECORDS SUMMARY | 2024-10-27 04:21 | XMS_ITS | Encounter Summary ---
Author Organization [facility] Address [address] [place] [address]. [place] [address] [place] [address] Care Team Providers Care Automation And Controls Instructor Name Role Phone Unavailable Primary Care Provider Unavailabl e Encounter Details Date Type Department Care Team (Late st Contact Info) Description 08/18/2013 Abstract [facility] [address] [place] [id number] , María Rico MD Social History Tobacco [...]
--- OUTSIDE RECORDS SUMMARY | 2024-10-27 04:21 | XMS_ITS | Clinical Summary ---
Author Organization [facility] Address [address] [place] [address]. [place], [place] [address] [place] [address] Care Team Providers Care Telesales Agent Name Role Phone Unavailable Primary Care Provider Unavailabl e Social History Tobacco Use Types Packs/Day Years Used Date Smoking Tobacco: Never Assessed Sex and Gender Information Value Date Recorded Sex Assigned at Not on file Legal Sex Male 1:42 AM CDT Gender Identity Not on file Sexual Orientation Not on file Plan of Treatment Health Maintenance Due Date Last Done Comments Colorectal Cancer Screening Colonoscopy (10 Years) 1956 Hepatitis C 1974 DTaP, Tdap and Td Vaccines ( 1 - Tdap) 1975 Zoster Vaccines (1 of 2) 2006 Pneumococcal Vaccine: 65+ Ye ars (1 of 1 - PCV) 2021 COVID-19 Vaccine ( - 2023-2 5 season) 2024 Influenza Adult (#1) 2024 RSV Immunization or 60+ Years (1 - 1-dose 75+ series) 2031 Meningococcal Vaccine Aged Out No stella cortney eligible based on patient's age to complete this topic RSV Immunizations Under 20 Months Aged Out No longer eligible based on patient's age to complete this topic
--- OUTSIDE RECORDS SUMMARY | 2024-10-27 04:22 | XMS_ITS | Encounter Summary ---
Author Organization [facility] Address [address] [place] [address] Phone Care Team Providers Care Conventional Machinist Name Role Phone Jamal Santamaria MD Primary Care Provider Reason for Visit * Reason Onset Date Comments FYI 12/30/2023 Encounter Details Date Type Department Care Team (Late st Contact Info) Description 12/30/2023 Telephone [facility] Ophthalmology [address] [place] [address] Karl Strickland, [place] [address] [id number] Social History Tobacco Use Types Packs/Day Years Used Date Smoking Tobacco: Former Smokeless Tobacco: Never Comments:very little Sex and Gender Information Value Date Recorded Sex Assigned at Not on file 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 Strickland appt, requested pt call back. documented in this encounter Plan of Treatment Not on file documented as of this encounter Visit Diagnoses Not on filedocumented in this encounter Care Teams Conventional Machinist Relationship Specialty Start Date End Date Jamal Santamaria MD [address] [place], [place] [id number] PCP - General 06/25/18 documented as of this encounter
--- OUTSIDE RECORDS SUMMARY | 2024-10-27 04:22 | XMS_ITS | Encounter Summary ---
Author Organization [facility] Address [address] [place] [address] Phone Care Team Providers Care Financial Planning Advisor Name Role Phone Jamal Santamaria MD Primary Care Provider [phone] Reason for Referral * Diagnostic Imaging (Routine) - Closed Specialty Diagnoses / Procedures Referred By Contac t Referred To Contact Diagnoses Optic cupping of both eyes Procedures OCT, Optic Nerve - OU - Both Eyes Karl Strickland, [place] [address] [address] Phone: tel: fax: [facility] (All Locations) Referral ID Status Reason Start Date Expiration Date Visits Re quested Visits Authorized [id number] Closed 01/08/2024 02/06/2025 1 1 * Diagnostic Imaging (Routine) - Closed Specialty Diagnoses / Procedures Referred By Contac t Referred To Contact Diagnoses Optic cupping of both eyes Procedures Persaud Visual Field - OU - Both Eyes Karl Strickland, [place] [address] [address] Phone: tel: fax: [facility] (All Locations) Referral ID Status Reason Start Date Expiration Date Visits Re quested Visits Authorized [id number] Closed 01/08/2024 02/06/2025 1 1 Encounter Details Date Type Department Care Team (Late st Contact Info) Description 01/08/2024 Orders Only [facility] Ophthalmology [address] [facility] 6th Floor, [address] [place] [facility] [place] [address] Karl Strickland, OD [address] [facility] [address] [place], [place] [id number] 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); Optic cupping of both eyes Social History Tobacco Use Types Packs/Day Years Used Date Smoking Tobacco: Former Smokeless Tobacco: Never Comments:very little Sex and Gender Information Value Date Recorded Sex Assigned at Not on file 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 Temporal thickness was normal. Superior thickness was normal. Nasal thickness was normal. Inferior thickness was normal. Average RNFL thickness 92 micrometers. Left Eye Reliability was good. Temporal thickness was normal. Superior thickness was normal. Nasal thickness was normal. Inferior thickness was normal. Average RNFL thickness 92 micrometers. Karl Strickland OD OPHTH TOMOGRAPHY Final Result * Persaud Visual Field - OU - Both Eyes (05/20/2024 8:11 AM CDT) Pattern Deviation OS 1.37 CONTINUUM Pattern Deviation OD 1.79 CONTINUUM Mean Deviation OS -0.73 CONTINUUM Mean Deviation OD -1.79 CONTINUUM Anatomical Region Laterality Modality Head Other Narrative 05/20/2024 1:34 PM CDT Right Eye Fixation was good. Cooperation was good. Reliability was good. Progression has no prior data. Foveal threshold was normal. Findings include normal observations. Mean Deviation was -1.79. Pattern Deviation was 1.79. Left Eye Fixation was good. Cooperation was good. Reliability was good. Progression has no prior data. Foveal threshold was normal. Findings include normal observations. Mean Deviation was -0.73. Pattern Deviation was 1.37. 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
--- OUTSIDE RECORDS SUMMARY | 2024-10-27 04:22 | XMS_ITS | Data Portability ---
Author Organization [place] [facility], Main Office Address [address] [place] [address] Care Team Providers Care Button Sawyer Name Role Phone EVA CHOUDHARY Primary Care Provider EVA CHOUDHARY Referring Provider [phone] Assessment Encounter Date Assessment Date Assessment LastModified by Organization Details LastModified Time 01/21/2023 01/21/2023 HPI: Patient returns. He is now 2 weeks out from left anterior total hip arthroplasty. Overall doing well. He is only taking Tylenol for pain. He finished his Celebrex. He is on his Eliquis. Physical exam: Patient is walking relatively well. He has a cane with him but is really using it. His incisions well healed. He has no increased swelling in either lower extremity. Impression:Deandra saldana doing well 2 weeks out left anterior total hip arthroplasty. He will continue with the Eliquis for his 5 week course. He can wean off the cane as comfort allows. Will see back in 2 weeks with x-rays the hip at that time. Not available 01/21/2023 17:32:01 02/04/2023 02/04/2023 HPI: Patient returns. He is 1 month out from left anterior total hip arthroplasty. He is doing very well. He is having no symptoms in the leg or the hip. He is back to all activities without any discomfort at this point. Very happy with his results. Physical exam: Patient walking very well today. Incisions well healed. No swelling in either lower extremity. Impression: Patient is doing very well 1 month out left anterior total hip arthroplasty. He will finish up his Eliquis. He may increase activities as tolerated. 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 Patient overall is very comfortable and I think at this point we can just see him back at his 1 year anniversary. Long-term risk of infection was discussed. Also briefly discussed preop dental antibiotics as well. Not available 02/04/2023 14:53:38 Plan of Treatment Reminders Order Date Submit Date Provider Last Modified By Organization Details Last Modified Time Details Appointments None recorded. Lab None recorded. Referral None recorded. Procedures None recorded. Surgeries None recorded. Imaging XR, hip + pelvis, unilateral 2022 023 [email or web address] [facility], [address], [place], [address], 14:55:07 Medication Orders None recorded. Patient TargetsNo targets recorded. Patient InstructionsNo instructions recorded. Reason for Referral None Reported. Results Created Date Observation Date Name Description Value Unit Range Abnormal Flag Note LastModifiedBy Organization Detail LastModifiedTime 03/07/20 22 10/04/2021 XR, hip, bilat eral No observ ation record ed. MIGRATION. [id number] Not Available 12/13/2022 01:01:20 03/07/20 22 03/07/2022 XR, hip + pelvi s, unila teral No observ ation record ed. MIGRATION. [facility] [address], [place], [address], 12/13/2022 01:01:20 03/07/20 22 10/04/2021 XR, lumba r spine , 2 view No observ ation record ed. MIGRATION. [id number] Not Available 12/13/2022 01:01:20 03/07/20 22 10/21/2021 MRI, hip, w/o contr ast No observ ation record ed. MIGRATION. Not Available 12/13/2022 01:01:20 03/07/20 22 10/21/2021 MRI, lumba r spine , w/o contr ast No observ ation record ed. MIGRATION. Not Available 12/13/2022 01:01:20 10/03/20 22 10/03/2022 XR, hip + pelvi s, unila teral No observ ation record ed. [id number] [facility] [place] [address] [facility] [address], [place], [address], 12/13/2022 01:01:20 01/01/20 23 12/19/2022 elect elmo mendez am No observ ation record ed. [email or web address] Not Available 2022 10:53:15 01/08/20 23 01/07/2023 XR, hip + pelvi s, unila teral , 2 or 3 view No observ ation record ed. [address] [facility], [place], [address], 01/08/2023 13:50:12 01/08/20 23 01/07/2023 XR, hip + pelvi s, unila teral No observ ation record ed. [address] [facility], [place], [address], 01/08/2023 13:50:33 01/13/20 23 01/12/2023 US, doppl er, venou s No observ ation record ed. [address] [facility], [place], [address], 01/14/2023 12:26:14 02/05/20 23 XR, hip + pelvi s, unila teral No observ ation record ed. [email or web address] [facility] [place] [address] [facility] [address], [place], [address], 02/04/2023 14:52:34 Result Notes None recorded. Problems Name Problem SNOMED Code Status Onset Date Resolution Date Notes Provider Name and Address Organization Details Recorded Time Pain of left hip joint 9945082496835 00 Active 2021 Not Available [facility] 3 01:00:06 Osteoarthr itis 204222077 Active 2021 Not Available [facility] 3 01:00:06 Problem Notes None recorded. Procedures Surgical History Date Name Laterality Status Provider Name and Address Organization Details Recorded Time Colonoscopy completed Not Available [facility] 12/13/2022 00:59:11 Back Surgery completed Not Available [facility] 12/13/2022 00:59:11 Imaging Results Imaging Date Name Status LastModified by Organization Details LastModified Time 10/04/2021 XR, hip, bilateral completed [id number] [id number] Information not available 12/13/2022 01:01:20 03/07/2022 XR, hip + pelvis, unilateral completed [id number] [facility] [place] [address] [facility] [address], [place], [address], 12/13/2022 01:01:20 10/04/2021 XR, lumbar spine, 2 view completed [id number] Information not available 12/13/2022 01:01:20 10/21/2021 MRI, hip, w/o contrast completed [id number] Information not available 12/13/2022 01:01:20 10/21/2021 MRI, lumbar spine, w/o contrast completed [id number] Information not available 12/13/2022 01:01:20 10/03/2022 XR, hip + pelvis, unilateral completed [id number] [facility] [place] [address] [facility] [address], [place], [address], 12/13/2022 01:01:20 12/19/2022 electrocardiogram completed [email or web address] Informa tion not available 12/31/2022 10:53:15 01/07/2023 XR, hip + pelvis, unilateral, 2 or 3 view completed [address] [place] [address], [address], 01/08/2023 13:50:12 01/07/2023 XR, hip + pelvis, unilateral completed [email or web address] [place] [id number] [facility] [address], [place], [address], 01/08/2023 13:50:33 01/12/2023 US, doppler, venous completed [email or web address] [facility] [address], [place], [address], 01/14/2023 12:26:14 02/04/2023 XR, hip + pelvis, unilateral completed [email or web address] [facility] [place] [address], [place], [address], 02/04/2023 14:52:34 Procedure Notes None recorded. Medical Equipment None Reported. Allergies Allergen ID Allergen Name Allergen Category Reaction Reaction Severity Criticality Documentation Date Start Date Code Code System Note Provider Name and Address Organization Details Recorded Time 10409 Medicinal product containin g penicilli n and acting as antibacte rial agent (product) medicatio n Not available Not available Not available 12/13/2022 69860 05 SNOMED Not Available [facility] 01:01:06 Medications Name Sig Start Date Stop Date Status Note LastModified by Organization Details LastModified Time oxycodone 2022 completed Not Available Not Available Not Available losartan 022 active Not Available Not Available Not Avai lable Doxycycline 2022 completed Not Available Not Available Not Available Eliquis active Not Available Not Avail able Not Available Vitals Date Recorded Body mass index (BMI) Body height Body weight Provider Name and Address Organization Details Last Updated DateTime 03/07/2022 27.2 kg/m2 180.34 cm 81053.51 g Not Available [facility] 12/13/2022 00:59:24 Date Recorded Body height Provider Name an d Address Organization Details Last Updated DateTime 10/03/2022 180.34 cm Not Available [facility] 00:59:24 Date Recorded Body height Provider Name an d Address Organization Details Last Updated DateTime 01/21/2023 180.34 cm SHILA Wick Jose [place] [employer] [facility] 01/21/2023 16:31:49 Date Recorded Body height Provider Name an d Address Organization Details Last Updated DateTime 02/04/2023 180.34 cm SHILA Wick [place] [employer] [facility] 02/04/2023 14:18:57 Social History Question Answer Notes LastModified by Organizat ion Details LastModified Time Tobacco Smoking Status Never Smoker Not Available [facility] 12/13/2022 00:58:23 What Is Your Level Of Alcohol Consumption? Moderate [id number] Information not available 12/13/2022 Sex: Unknown Functional Status None recorded. Mental Status None recorded. Family History Relationship Description Onset Age of this Age Resolved Age Notes LastModified by Organization Details LastModified Time Mother Family history of stroke [id number] Not available 12/13/2022 00:59:12 Mother Hypertensive disorder [id number] Not available 12/13/2022 00:59:12 Medical History Condition Response BLINDNESS N KIDNEY STONES N MRSA N CARPAL TUNNEL SYNDROME N LUNG DISEASE/DISORDER N HISTORY OF DRUG ABUSE N RADIATION / CHEMOTHERAPY N COPD N SPORTS INJURY N ANKLE PAIN N BLOOD DISEASES N SCHIZOPHRENIA N SHINGLES N SHOULDER PAIN N BOWEL PROBLEMS N DEPRESSION (INCLUDING POST ) N STROKE/TIA N ULCERS N KNEE PAIN N BENIGN PROSTATIC HYPERPLASIA N OBESITY N GERD/NAUSEA N ANEURYSM N URINARY/BLADDER/KIDNEY PROBLEMS N CORONARY ARTERY DISEASE (CAD) N ADDICTION CONCERNS N USE OF BLOOD THINNERS N SKIN PROBLEMS N EMPHYSEMA N MUSCLE,JOINT OR BONE PROBLEMS N DVT N STOMACH ULCERS N BLOOD CLOTS N USE OF NSAIDS Y CONCUSSION OR SPINAL TRAUMA N NEUROPATHY N AIDS/HIV N FRACTURES N HYPERTENSION Y ELBOW PAIN N TOURETTE'S N Metal allergy N ANXIETY DISORDER N BLOOD TRANSFUSION N ANEMIA/BLOOD DISORDER N BIPOLAR DISORDER N BRONCHITIS N OSTEOARTHRITIS N TUBERCULOSIS N FOOT PROBLEM N HEART VALVE DISORDERS N ALLERGIES/HAYFEVER N SOFT TISSUE INJURY N INFECTIOUS DISEASE N HEART ARRHYTHMIA N INSOMNIA N HIGH CHOLESTEROL / HYPERLIPIDEMIA N RHEUMATOID ARTHRITIS N EDEMA N CHRONIC PAIN SYNDROME N CAROTID BLOCKAGE N BACK / NECK PROBLEMS N HAVE YOU BEEN HOSPITALIZED OR SEEN IN [facility] ER IN THE PAST YEAR ? N BURSITIS N HERNIATED DISC N DIALYSIS N FIBROMYALGIA N OSTEOPOROSIS N ARTHRITIS Y NO SIGNIFICANT PAST MEDICAL HISTORY N PERIPHERAL NEUROPATHY N DIABETES, TYPE N HEARTBURN / REFLUX N HEPATITIS / LIVER DISEASE N GOUT N ALZHEIMER'S DISEASE N SLEEP DISORDER N HERPES N HEADACHES/MIGRAINES N SEIZURES/EPILEPSY N VASCULAR DISEASE N Blood Disorder N HIP PAIN N DIZZINESS N HEAD TRAUMA OR INJURY N HEART DISEASE/HEART PROBLEMS N MULTIPLE SCLEROSIS N CANCER: SPECIFY N CARDIAC ARRHYTHMIA N ANESTHESIA COMPLICATIONS N ATRIAL FIBRILLATION N AUTOIMMUNE DISEASE N Past Encounters Encounter ID Performer Location Encounter Start Date Encounter Closed Date Diagnosis/Indication Diagnosis SNOMED-CT Code Diagnosis ICD10 Code Diagnosis Note [id number] [facility] [place] [address] [place], [place] [address] 03/07/2022 00:00:00 03/07/2022 12:55:35 [id number] [facility] [place] [address] [place] [address] 10/03/2022 00:00:00 10/14/2022 17:06:20 [id number] MONI Peck [facility] [place] [address] [place] [address] 01/21/2023 16:27:20 01/21/2023 17:37:58 History of total replacement of left hip joint 3755368715 807171 Z96.642 [id number] MONI Peck [facility] [place] [address] [place], [place] [address] 02/04/2023 14:07:43 02/04/2023 14:55:07 History of total replacement of left hip joint 0112206934 522396 Z96.642 Health Concerns Section Related Observation LastModified by Organization Detai ls LastModified Time None Recorded Concern Status LastModified by Organization Details LastModified Time None Recorded Advance Directives Directive None Recorded Payers Encounter Date Sequence Insurance Name Policy Number Policy Deutsch Covered Member ID Deutsch Member ID Guarantor Name 01/21/2023 1 [place] Blake Grimes Cioni [id number] Blake Cioni 01/21/2023 2 [employer] (MEDICARE SUPPLEMENT) Blake Grimes Cioni [id number] Blake Cioni 02/04/2023 1 [place] Blake Grimes Cioni [id number] Blake Cioni 02/04/2023 2 [employer] (MEDICARE SUPPLEMENT) Blake Grimes Cioni [id number] Blake Cioni
--- OUTSIDE RECORDS SUMMARY | 2024-10-27 04:22 | XMS_ITS | Clinical Summary ---
Author Organization [facility] Address [address] [place] [address] Care Team Providers Care Sugar Refiner Name Role Phone Jamal Santamaria MD Primary Care Provider [phone] Allergies Active Allergy Reactions Criticality Noted Date Comments Penicillins Itching Low 06/30/2018 Medications losartan (COZAAR) 100 mg tablet Take 100 mg by mouth daily. 2 06/25/2018 Active omega-3 fatty acids-fish oil 300-1,000 mg capsule Take 1.35 g by mouth daily Active Lactobacillus acidophilus 20 billion cell capsule Take 1 capsule by mouth daily Active Active Problems Problem Noted Date Diagnosed Date Nevus of choroid of left eye 01/08/2024 Assessment & Plan (05/20/2024 1:33 PM CDT): Continue close monitoring w retina Assessment & Plan (02/12/2024 12:14 PM CDT): Small, nasal pigmented choroidal lesion. Assessment & Plan (01/08/2024 11:26 AM CDT): In far periphery nasal left eye (OS), without elevation of orange pigment. Pt believes he may have been told this before. Educated on findings and need for close monitoring. RTC 2-3mo with Dr. Anne Optic cupping of both eyes 01/08/2024 Assessment & Plan (05/20/2024 1:34 PM CDT): Pt's intraocular pressure (IOP) stable mid teens both eyes (OU). Full Persaud visual field (HVF) and no concerning GCC or RNFL thinning on OCT. Pachs slightly thicker than average, angle appears open on VH. Educated on all exam findings and recommended monitoring yearly with reassuring workup. RTC sooner PRN Assessment & Plan (01/08/2024 11:27 AM CDT): Mild-moderate cupping both eyes (OU) with intraocular pressure (IOP) that is normotensive. Educated on findings and risks associated with glaucoma. Will schedule baseline glaucoma workup Prediabetes 01/08/2024 Assessment & Plan (01/08/2024 11:27 AM CDT): No diabetic ophthalmic changes noted right eye (OD) or left eye (OS). Educated on findings. Stressed importance of close blood sugar control/monitoring. Monitor. Encounters Date Type Department Care Team Description 08/18/2024 1:15 PM LAG SCREWER Office Visit [facility] Ophthalmology 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 Anne Family History Medical History Relation Name Comments No Known Problems Father Macular degeneration Mother Relation Name Status Comments Father Mother Social History Tobacco Use Types Packs/Day Years Used Date Smoking Tobacco: Former Smokeless Tobacco: Never Comments:very little Sex and Gender Information Value Date Recorded Sex Assigned at Not on file Legal Sex Male 1:22 AM LAG SCREWER Gender Identity Not on file Sexual Orientation Not on file Obstetrics History Last Filed Vital Signs Vital Sign Reading Time Taken Comments Blood Pressure 134/77 06/30/2018 10:25 AM CDT Pulse 51 06/30/2018 10:25 AM CDT Temperature 36.3 ??C (97.3 ??F) 06/30/2018 10:25 AM C DT Respiratory Rate 18 06/30/2018 10:25 AM CDT Oxygen Saturation 100% 06/30/2018 10:25 AM CDT Inhaled Oxygen Concentration - - Weight 89.4 kg (197 lb) 06/30/2018 8:06 AM CDT Height 180.3 cm (5' 11 ) 06/30/2018 8:06 AM CDT Body Mass Index 27.48 06/30/2018 8:06 AM CDT Plan of Treatment Health Maintenance Due Date Last Done Comments Depression Screening 1955 Fall Risk Assessment 1955 Hepatitis C Screening 1955 Prostate Cancer Screening-PSA 1955 Hepatitis B Screening 1974 Abdominal Aortic Aneurysm (A AA) Screen 2021 Well Visit 65+ 2021 Covid-19 Vaccine (2023-2 5 season) 2024 07/06/2023, 09/08/2022, 02/02/2022, Additional history exists Influenza Vaccine (#1) 2024 , 06/29/2022, 07/14/2021, Additional history exists Colon Cancer Screening-Colonoscopy 06/30/2028 06/30/2018 DTaP/Tdap/Td Vaccine (2 - Td or Tdap) 07/14/2031 07/14/2021 Colon Cancer Screening-CT Colonography Discontinued 06/30/2018 Colon Cancer Screening-DNA Stool Discontinued 06/30/20 Colon Cancer Screening-FIT Discontinued 06/30/2018 Colon Cancer Screening-Sigmoidoscopy Discontinued 06/30/2018 Zoster Vaccine Completed 01/14/2019, 10/15, 10/16/2017 Pneumococcal vaccine 65+ Completed 06/29/2022, 12/2017 Procedures Procedure Name Priority Date/Time Associated Diagnosis Comments B-SCAN ULTRASOUND 65706 - OS - LEFT EYE Routine 08/18/2024 2:09 PM LAG SCREWER Nevus of choroid of left eye FUNDUS PHOTOS/FAF - OU - BOTH EYES Routine 08/18/2024 2:00 PM LAG SCREWER Nevus of choroid of left eye OCT, RETINA - OU - BOTH EYES Routine 08/18/2024 2:00 PM LAG SCREWER Nevus of choroid of left eye COLONOSCOPY 06/30/2018 9:24 AM CDT from Last 3 Months or Most Recently Relevant to Health Maintenance Results * B-SCAN ULTRASOUND 53123 - OS - LEFT EYE (08/18/2024 2:09 PM LAG SCREWER) Anatomical Region Laterality Modality Head Ultrasound Narrative 08/18/2024 2:09 PM LAG SCREWER Flat Michell Anne MD PhD OPHTH ULTRASOUND Fin al Result * Fundus Photos/FAF - OU - Both Eyes (08/18/2024 2:00 PM LAG SCREWER) Anatomical Region Laterality Modality Head Fundus Photograp hy Narrative 08/18/2024 2:00 PM LAG SCREWER Right eye (OD): wnl Left eye (OS): stable, small , nasal pigmented choroidal lesion Michell Anne MD PhD OPHTH PHOTOGRAPHY Fi nal Result * OCT, Retina - OU - Both Eyes (08/18/2024 2:00 PM LAG SCREWER) Anatomical Region Laterality Modality Head Optical Coherenc e Tomography Narrative 08/18/2024 2:00 PM LAG SCREWER Right eye (OD) ; few small drusen Left eye (OS) few small drusen, flat superonasal choroidal lesion without subretinal fluid Michell Anne MD PhD OPHTH TOMOGRAPHY Fin al Result * COLONOSCOPY (06/30/2018 9:24 AM CDT) Anatomical Region Laterality Modality Other Narrative Procedure Note Genevieve Cunningham MD - 06/30/2018 9:24 AM CDT [facility] Patient Name: Blake Samaniego Procedure Date: 06/30/2018 9:24 AM Date of : 1955 Admit Type: Outpatient Age: 62 Gender: Male Attending MD: Genevieve Cunningham MD Room: [facility] ENDOSCOPY ROOM 1 Note Status: Finalized Patient Profile: 62 WM, h/o polyp, no family h/o colon cancer,screening. Procedure: Colonoscopy Indications: High risk colon cancer surveillance: Personalhistory of colonic polyps, Last colonoscopy: December 2009 Referring MD: Jamal Santamaria MD Providers: Genevieve Cunningham MD Impression: - The entire examined colon is normal. - One 2 mm polyp in the rectum, removed with a jumbo cold forceps. Resected and retrieved. - Internal hemorrhoids. Recommendation: - Await pathology results. - Repeat colonoscopy in 10 years for screeningpurposes. - Continue present medications. Medicines: Monitored Anesthesia Care Complications: No immediate complications. Estimated Blood Loss: Estimated blood loss: none. Procedure: Pre-Anesthesia Assessment: - Prior to the procedure, a History and Physical was performed, and patient medications and allergieswere reviewed. The patient's tolerance of previous anesthesia was also reviewed. The risks and benefitsof the procedure and the sedation options and riskswere discussed with the patient. All questions were answered, and informed consent was obtained. Prior Anticoagulants: The patient has taken no previous anticoagulant or antiplatelet agents. ASA Grade Assessment: II - A patient with mild systemicdisease. After reviewing the risks and benefits, the patientwas deemed in satisfactory condition to undergo the procedure. The benefits, risks and alternatives of theprocedure and sedation were discussed and informed consent was obtained. All questions were answered. Please referto the signed informed consent document in the medical record. The scope was passed under direct vision.The Pediatric Colonoscope [id number]-H190L [id number] was introduced through the anus and advanced to the the cecum, identified by appendiceal orifice andileocecal valve. The colonoscopy was performed without difficulty. The patient tolerated the procedurewell. The quality of the bowel preparation wasexcellent. Findings: The perianal and digital rectal examinations were normal. The colon overall (entire examined portion) appeared normal. A 2 mm polyp was found in the rectum. The polyp was sessile. Thepolyp was removed with a jumbo cold forceps. Resection and retrieval were complete. Internal hemorrhoids were found during retroflexion. The hemorrhoids were medium size. Electronically signed by Genevieve Cunningham M.D. Genevieve Cunningham MD 06/30/2018 9:53:59 AM Number of Addenda: 0 Note Initiated On: 06/30/2018 9:24 AM Procedure Code(s): --- Professional --- 98950, Colonoscopy, flexible; with biopsy, single or multiple Diagnosis Code(s): --- Professional --- Z86.010, Personal history of colonic polyps K64.8, Other hemorrhoids K62.1, Rectal polyp CPT copyright 2017 [employer]. All rights reserved. The codes documented in this report are preliminary and upon check writer salesperson reviewmay be revised to meet current compliance requirements. Recognized by the [employer] for promoting quality in endoscopy Genevieve Cunningham MD ENDOSCOPY PROCEDURES Final Result from Last 3 Months or Most Recently Relevant to Health Maintenance Insurance MEDICARE [employer] [facility] Advance Directives For more information, please contact: [phone] * Full Code (Latest Code Status on File) Date Activated Date Inactivated Comments 06/30/2018 8:14 AM 06/30/2018 12:42 PM Care Teams Sugar Refiner Relationship Specialty Start Date End Date Jamal Santamaria MD [address] [place] [address] PCP - General 06/25/18
--- OUTSIDE RECORDS SUMMARY | 2024-10-27 04:22 | XMS_ITS | Encounter Summary ---
Author Organization [facility] Address [address] [place] [address] Phone Care Team Providers Care Broke Handler Name Role Phone Jamal Santamaria MD Primary Care Provider [phone] Reason for Referral * Diagnostic Imaging (Routine) - Authorized Specialty Diagnoses / Procedures Referred By Gonzalez ochoa Referred To Contact Diagnoses Nevus of choroid of left eye Procedures B-SCAN ULTRASOUND 75048 - OS - LEFT EYE Michell Anne MD PhD [address] [address] Phone: tel: fax: [facility] (All Locations) Referral ID Status Reason Start Date Expiration Date V isits Requested Visits Authorized [id number] Authorized 08/18/2024 09/17/2025 1 1 [employer] * Diagnostic Imaging (Routine) - Authorized Specialty Diagnoses / Procedures Referred By Gonzalez ochoa Referred To Contact Diagnoses Nevus of choroid of left eye Procedures OCT, Retina - OU - Both Eyes Michell Anne MD PhD [address] [place] [id number] Phone: tel: fax: [facility] (All Locations) Referral ID Status Reason Start Date Expiration Date V isits Requested Visits Authorized [id number] Authorized 08/18/2024 09/17/2025 1 1 [employer] Reason for Visit * Reason Comments Nevus of choroid of left eye Encounter Details Date Type Department Care Team (Late st Contact Info) Description 08/18/2024 1:15 PM SUPERVISOR LABOR GANG Office Visit [facility] Ophthalmology [address] [facility] 6th [place] [address] Michell Anne MD PhD [address] [facility] [address] [place] [address] 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) Social History Tobacco Use Types Packs/Day Years Used Date Smoking Tobacco: Former Smokeless Tobacco: Never Comments:very little Sex and Gender Information Value Date Recorded Sex Assigned at Not on file Legal Sex Male 1:22 AM SUPERVISOR [employer]OR [employer]ANG Gender Identity Not on file Sexual Orientation Not on file documented as of this encounter Progress Notes * Michell Anne MD PhD - 08/18/2024 1:15 PM CST Assessment/Plan Diagnoses and all orders for this visit: Nevus of choroid of left eye Assessment & Plan: Stable, small, superonasal pigmented choroidal lesion. Most consistent with benign, choroidal nevusat this time. Patient notes likely mentioned several years ago but uncertain. Given stable and flatrecommend monitor Follow up 1 year PLAN FOR NEXT VISIT Return in about 1 year (around 08/18/2025) for OCT OU, Dilated exam, Fundus Photos OU. [employer] documented in this encounter Plan of Treatment Not on file documented as of this encounter Procedures Procedure Name Priority Date/Time Associated Diagnosis Comments B-SCAN ULTRASOUND 67223 - OS - LEFT EYE Routine 08/18/2024 2:09 PM SUPERVISOR LABOR GANG Nevus of choroid of left eye FUNDUS PHOTOS/FAF - OU - BOTH EYES Routine 08/18/2024 2:00 PM SUPERVISOR [employer] GANG Nevus of choroid of left eye OCT, RETINA - OU - BOTH EYES Routine 08/18/2024 2:00 PM SUPER[employer]OR [employer] GANG Nevus of choroid of left eye documented in this encounter Results * B-SCAN ULTRASOUND 07662 - OS - LEFT EYE (08/18/2024 2:09 PM SUPERVISOR [employer] GANG) Anatomical Region Laterality Modality Head Ultrasound Narrative 08/18/2024 2:09 PM SUPERVISOR [employer] GANG Flat Michell Anne MD PhD OPHTH ULTRASOUND Fin al Result * Fundus Photos/FAF - OU - Both Eyes (08/18/2024 2:00 PM SUPERVISOR [employer]OR GANG) Anatomical Region Laterality Modality Head Fundus Photograp hy Narrative 08/18/2024 2:00 PM SUPERVISOR LABOR GANG Right eye (OD): wnl Left eye (OS): stable, small , nasal pigmented choroidal lesion Michell Anne MD PhD OPHTH PHOTOGRAPHY Fi nal Result * OCT, Retina - OU - Both Eyes (08/18/2024 2:00 PM SUPERVISOR [employer] GANG) Anatomical Region Laterality Modality Head Optical Coherenc e Tomography Narrative 08/18/2024 2:00 PM SUPERVISOR [employer]OR GANG Right eye (OD) ; few small drusen Left eye (OS) few small drusen, flat superonasal choroidal lesion without subretinal fluid Michell Anne MD PhD OPHTH TOMOGRAPHY Fin al Result documented in this encounter Visit Diagnoses Diagnosis Nevus of choroid of left eye- Primary documented in this encounter Eye Exam Visual Acuity (Snellen - Linear) Right eye Left eye Dist cc 20/20 20/20 -1 Correction: Glasses Tonometry (Tonopen, 1:35 PM) Right eye Left eye Pressure 17 15 Pupils Pupils Right eye PERRL Left eye PERRL Visual Thrasher Right eye Left eye Full Full Extraocular Movement Right eye Left eye Full Full Neuro/Psych Oriented x3: Yes Mood/Affect: Normal Dilation Both eyes: 1.0% Mydriacyl @ 1:35 PM Care Teams Broke Handler Relationship Specialty Start Date End Date Jamal Santamaria MD [address] [place] [address] PCP - General 06/25/18 documented as of this encounter
--- OUTSIDE RECORDS SUMMARY | 2024-10-27 04:22 | XMS_ITS | Encounter Summary ---
Author Organization [facility] Healthcare Address [address] [place] [address] Care Team Providers Care Vp Information Technology Name Role Phone Jamal Santamaria MD Primary Care Provider Encounter Details Date Type Department Care Team (Latest Contact Info) Description 06/30/2018 7:33 AM CDT - 06/30/2018 10:37 AM CDT Hospital Encounter 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 2 06/25/2018 documented as of this encounter Discharge Disposition Disposition Code Departure Means Destination Discharge to home or self care documented in this encounter H&P Notes * Genevieve Cunningham MD - 06/30/2018 9:49 AM CDT History and Physical Date of visit: 06/30/2018 Subjective: Patient is a 62 y.o. male presented for evaluation for screening for colon cancer. H/o polyps, no family h/o colon cancer.. Past Medical History: Diagnosis Date ??? Colon polyp ??? Hypertension Past Surgical History: Procedure Laterality Date ??? BACK SURGERY 15 years ago ??? COLONOSCOPY 12/26/2009 Prescriptions Prior to Admission Medication Sig Dispense Refill Last Dose ??? losartan (COZAAR) 100 mg tablet Take 100 mg by mouth daily. 2 06/30/2018 at Unknown time Allergies Allergen Reactions ??? Penicillins Itching Social History Substance Use Topics ??? Smoking status: Former Smoker ??? Smokeless tobacco: Never Used Comment: very little ??? Alcohol use Not on file History reviewed. No pertinent family history. Physical Exam: Patient is awake and answers well. Eyes: no jaundice. Lungs: CTA anteriorly. ENT: no mouth ulcers. Abdomen: soft, no distention, no tenderness, bowel sounds positive. Extremities: no edema. Skin: no rash. GI IMPRESSION: 1. Screening for colon cancer GI PLAN/RECOMMENDATIONS: 1. colonoscopy Genevieve Cunningham MD documented in this encounter Procedure Notes * Genevieve Cunningham MD - 06/30/2018 9:24 AM CDTAssociated Order(s): COLONOSCOPY [facility] Patient Name: Blake Samaniego Procedure Date: 06/30/2018 9:24 AM Date of : 1955 Admit Type: Outpatient Age: 62 Gender: Male Attending MD: Genevieve Cunningham MD Room: [facility] ENDOSCOPY ROOM 1 Note Status: Finalized Patient Profile: 62 WM, h/o polyp, no family h/o colon cancer, screening. Procedure: Colonoscopy Indications: High risk colon cancer surveillance: Personal history of colonic polyps, Last colonoscopy: December 2009 Referring MD: Jamal Santamaria MD Providers: Genevieve Cunningham MD Impression: - The entire examined colon is normal. - One 2 mm polyp in the rectum, removed with a jumbo cold forceps. Resected and retrieved. - Internal hemorrhoids. Recommendation: - Await pathology results. - Repeat colonoscopy in 10 years for screening purposes. - Continue present medications. Medicines: Monitored Anesthesia Care Complications: No immediate complications. Estimated Blood Loss: Estimated blood loss: none. Procedure: Pre-Anesthesia Assessment: - Prior to the procedure, a History and Physical was performed, and patient medications and allergies were reviewed. The patient's tolerance of previous anesthesia was also reviewed. The risks and benefits of the procedure and the sedation options and risks were discussed with the patient. All questions were answered, and informed consent was obtained. Prior Anticoagulants: The patient has taken no previous anticoagulant or antiplatelet agents. ASA Grade Assessment: II - A patient with mild systemic disease. After reviewing the risks and benefits, the patient was deemed in satisfactory condition to undergo the procedure. The benefits, risks and alternatives of the procedure and sedation were discussed and informed consent was obtained. All questions were answered. Please refer to the signed informed consent document in the medical record. The scope was passed under direct vision. The Pediatric Colonoscope PCF-H190L [id number] was introduced through the anus and advanced to the the cecum, identified by appendiceal orifice and ileocecal valve. The colonoscopy was performed without difficulty. The patient tolerated the procedure well. The quality of the bowel preparation was excellent. Findings: The perianal and digital rectal examinations were normal. The colon overall (entire examined portion) appeared normal. A 2 mm polyp was found in the rectum. The polyp was sessile. The polyp was removed with a jumbo cold forceps. Resection and retrieval were complete. Internal hemorrhoids were found during retroflexion. The hemorrhoids were medium size. Electronically signed by Genevieve Cunningham M.D. Genevieve Cunningham MD 06/30/2018 9:53:59 AM Number of Addenda: 0 Note Initiated On: 06/30/2018 9:24 AM Procedure Code(s): --- Professional --- 02771, Colonoscopy, flexible; with biopsy, single or multiple Diagnosis Code(s): --- Professional --- Z86.010, Personal history of colonic polyps K64.8, Other hemorrhoids K62.1, Rectal polyp CPT copyright 2017 [employer]. All rights reserved. The codes documented in this report are preliminary and upon invoice coder review may be revised to meet current compliance requirements. Recognized by the [employer] for promoting quality in endoscopy documented in this encounter Plan of Treatment Not on file documented as of this encounter Procedures Procedure Name Priority Date/Time Associated Diagnosis Comments SURGICAL PATHOLOGY Routine 06/30/2018 11 :35 AM CDT COLON BIOPSY 06/30/2018 9:25 AM CDT COLONOSCOPY SCREENING COLONOSCOPY 06/30/2018 9:24 AM CDT documented in this encounter Results * Surgical pathology (06/30/2018 11:35 AM CDT) 06/30/2018 11:3 5 AM CDT 06/30/2018 11:35 AM CDT Narrative 07/01/2018 1:31 PM CDT EPIC results best viewed via link to PDF [facility] Department of Pathology [address] [place], [place] [id number] Final Report Patient Name: ??BLAKE SAMANIEGO Address: ??[address] [place] [address], ??[place], [place] ??[address] Gender: ??M : ??1955 (Age: 62) Service: ??Gastro Location: ??[facility] #: ??[id number] Patient Type: ??[facility] Accession # ?[id number] Taken: ??06/30/2018 Received: ??06/30/2018 Accessioned: ??06/30/2018 Reported: ??07/01/2018 Physician(s):Dr. Genevieve Cunningham M.D. Diagnosis: Rectum, biopsy: ? - Colonic mucosa with intramucosal benign lymphoid aggregate. Shan Godinez M.D. Report Electronically Reviewed and Signed Out By ??Shan Godinez M.D. ??07/01/2018 13:31:57 Specimen(s) Received: A: Colon, biopsy Microscopic Description: The specimen consists of a fragment of colonic mucosa and submucosa demonstrating a benign intramucosal lymphoid aggregate. No hyperplastic or adenomatous glandular changes are evident. The lymphoid aggregate may produce a mucosal bump clinically interpreted as a colon polyp. Clinical History: Screening. ??Rectal. ??Colonoscopy. Gross Description: The specimen is submitted in a single container labeled Blake Samaniego and rectal . ??It is one arvizu tissue fragment measuring 1 mm. ??All in one cassette. ??Danny Russell M.D./Leticia Corrales REPORT IMAGES AND SCANNED DOCUMENTS, IF INCLUDED, ONLY VIEWABLE IN PDF VERSION OF REPORT The performance characteristics of some immunohistochemical stains, fluorescence in-situ hybridization tests and immunophenotyping by flow cytometry cited in this report (if any) were determined by the Surgical Pathology Department at [facility] as part of an ongoing quality management nurse program and in compliance with federally mandated regulations drawn from the Clinical Laboratory Improvement Act of 1988 (CLIA '88). ??Some of these tests rely on the use of analyte specific reagents and are subject to specific labeling requirements by the US Food and Drug Administration. ??Such diagnostic tests may only be performed in a facility that is certified by the Department of Health and Human Services as a high complexity laboratory under CLIA '88. The FDA has determined that such clearance or approval is not necessary. ??This test is used for clinical purposes. ??It should not be regarded as investigational or for research. ??Nevertheless, federal rules concerning the medical use of analyte specific reagents require that the following disclaimer be attached to the report: This test was developed and its performance characteristics determined by the Surgical Pathology Department [facility]. ??It has not been cleared or approved by the U. S. Food and Drug Administration. Genevieve Cunningham MD LAB PATHOLOGY ORDERABLES F inal Result * COLONOSCOPY (06/30/2018 9:24 AM CDT) Anatomical Region Laterality Modality Other Narrative Procedure Note Genevieve Cunningham MD - 06/30/2018 9:24 AM CDT [facility] Patient Name: Blake Samaniego Procedure Date: 06/30/2018 9:24 AM Date of : 1955 Admit Type: Outpatient Age: 62 Gender: Male Attending MD: Genevieve Cunningham MD Room: [facility] ENDOSCOPY ROOM 1 Note Status: Finalized Patient [...] passed under direct vision.The Pediatric Colonoscope PCF-H190L [id number] was introduced through the anus and advanced [...] 9:24 AM Procedure Code(s): --- Professional --- 73496, Colonoscopy, flexible; with biopsy, single or multiple Diagnosis Code(s): --- Professional --- Z86.010, Personal history of colonic polyps K64.8, Other hemorrhoids K62.1, Rectal polyp CPT copyright 2017 [employer]. All rights reserved. The codes documented in this report are preliminary and upon invoice coder reviewmay be revised to meet current compliance requirements. Recognized by the [employer] for promoting quality in endoscopy Genevieve Cunningham MD ENDOSCOPY PROCEDURES Final Result documented in this encounter Visit Diagnoses Diagnosis Rectal polyp Anal and rectal polyp documented in this encounter Administered Medications Inactive Administered Medications - up to 3 most recent administrations Medication Order MAR Action Action Date Dose Rate Site ondansetron (ZOFRAN) injection 4 mg 4 mg, intravenous, Every 30 min PRN, nausea, vomiting, Starting on Sat06/30/18 at 0814, For 2 doses, Recovery (GI), Indications: Nausea and VomitingIndications:Nausea and Vomiting sodium chloride 0.9% flush 0.5-20 mL 0.5-20 mL, intra-catheter, Every 8 hours scheduled, First dose on Sat06/30/18 at 0845, Pre-Procedure (GI), Flush volume based on line type and size. , Indications: FlushingIndications:Flushing sodium chloride 0.9% flush 0.5-20 mL 0.5-20 mL, intra-catheter, As needed, line care, Starting on Sat06/30/18 at 0814, Pre-Procedure (GI), Flush volume based on line type and size. Flush before and after each use. , Indications: FlushingIndications:Flushing sodium chloride 0.9% infusion 30 mL/hr, intravenous, Continuous, Starting on Sat06/30/18 at 0845, Pre-Procedure (GI) New Bag 06/30/2018 8:33 AM CDT 30 mL/hr 30 mL/hr sodium chloride 0.9% infusion 125 mL/hr, intravenous, Continuous, Starting on Sat06/30/18 at 0845, Recovery (GI) New Bag 06/30/2018 9:30 AM CDT documented in this encounter Historical Medications * This list may reflect changes made after this encounter. losartan (COZAAR) 100 mg tablet Take 100 mg by mouth daily. 2 06/25/2018 added in this encounter Active and Recently Administered Medications Times are shown in CDT. Scheduled Medication Order 06/28/2018 06/29/2018 06/30/2018 sodium chloride 0.9% flush 0.5-20 mL 0.5-20 mL, intra-catheter, Every 8 hours scheduled, First dose on Sat06/30/18 at 0845, Pre-Procedure (GI), Flush volume based on line type and size. , Indications: Flushing 0845 (Due) Continuous Medication Order 06/28/2018 06/29/2018 06/30/2018 sodium chloride 0.9% infusion 30 mL/hr, intravenous, Continuous, Starting on Sat06/30/18 at 0845, Pre-Procedure (GI) 0833 (New Bag - Prov ider: Odalys Harrington RN) sodium chloride 0.9% infusion 125 mL/hr, intravenous, Continuous, Starting on Sat06/30/18 at 0845, Recovery (GI) 0930 (New Bag - Prov ider: Mode Fletcher MD)0945 (Anesthesia Volume Adjustment - Provider: Mode Fletcher MD) PRN Medication Order 06/28/2018 06/29/2018 06/30/2018 ondansetron (ZOFRAN) injection 4 mg 4 mg, intravenous, Every 30 min PRN, nausea, vomiting, Starting on Sat06/30/18 at 0814, For 2 doses, Recovery (GI), Indications: Nausea and Vomiting sodium chloride 0.9% flush 0.5-20 mL 0.5-20 mL, intra-catheter, As needed, line care, Starting on Sat06/30/18 at 0814, Pre-Procedure (GI), Flush volume based on line type and size. Flush before and after each use. , Indications: Flushing documented in this encounter Orders Medications Ordered That Carmelo ht Not Have Been Administered Count Last Ordered Date First Ordered Date ondansetron (ZOFRAN) injection 4 mg 1 06/30 sodium chloride 0.9% flush 0.5-20 mL 2 06/14 sodium chloride 0.9% infusion 1 06/30/2018 Lab Orders Without Results Count Last Ordered D ate First Ordered Date SURGICAL PATHOLOGY 1 06/30/2018 documented in this encounter Care Teams Vp Information Technology Relationship Specialty Start Date End Date Jamal Santamaria MD [address] [place] [address] PCP - General 06/25/18 documented as of this encounter
--- OUTSIDE RECORDS SUMMARY | 2024-10-27 04:22 | XMS_ITS | Encounter Summary ---
Author Organization [facility] Healthcare Address [address] [place] [address] Care Team Providers Care Color Control Supervisor Name Role Phone Unavailable Primary Care Provider Unavailabl e Encounter Details Date Type Department Care Team (Late st Contact Info) Description 12/26/2009 9:32 AM CDT - 12/26/2009 11:59 PM CDT Hospital Encounter [facility] Genevieve Linder MD [address] [place] [address] [address] Special screening for malignant neoplasms, colon; Anorectal polyp; Diverticulosis of colon; Internal hemorrhoids; Family history of colonic polyps; Essential hypertension Social History Tobacco Use Types Packs/Day Years Used Date Smoking Tobacco: Never Assessed Sex and Gender Information Value Date Recorded Sex Assigned at Not on file 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
--- OUTSIDE RECORDS SUMMARY | 2024-10-27 04:22 | XMS_ITS | Referral Summary ---
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 Monitor. 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 Gender Identity Not on file Sexual Orientation Not on file Last Filed Vital Signs Vital Sign Reading [...] 06/30/2018 8:06 AM CDT Plan of Treatment Not on file Procedures Procedure Name Priority Date/Time Associated Diagnosis Comments B-SCAN ULTRASOUND 49545 - OS - LEFT EYE Routine 08/18/2024 2:09 PM BORDEREAU CLERK Nevus of choroid of left eye FUNDUS PHOTOS/FAF - OU - BOTH EYES Routine 08/18/2024 2:00 PM BORDEREAU CLERK Nevus of choroid of left eye OCT, RETINA - OU - BOTH EYES Routine 08/18/2024 2:00 PM BORDEREAU CLERK Nevus of choroid of left eye COLONOSCOPY 06/30/2018 9:24 AM CDT from Last 3 Months or Most Recently Relevant to Health Maintenance Results * B-SCAN ULTRASOUND 90382 - OS - LEFT EYE (08/18/2024 2:09 PM BORDEREAU CLERK) Anatomical Region Laterality Modality Head Ultrasound Narrative 08/18/2024 2:09 PM BORDEREAU CLERK Flat Michell Anne MD PhD OPHTH ULTRASOUND Fin al Result * Fundus Photos/FAF - OU - Both Eyes (08/18/2024 2:00 PM BORDEREAU CLERK) Anatomical Region Laterality Modality Head Fundus Photograp hy Narrative 08/18/2024 2:00 PM BORDEREAU CLERK Right eye (OD): wnl Left eye (OS): stable, small , nasal pigmented choroidal lesion Michell Anne MD PhD OPHTH PHOTOGRAPHY Fi nal Result * OCT, Retina - OU - Both Eyes (08/18/2024 2:00 PM BORDEREAU CLERK) Anatomical Region Laterality Modality Head Optical Coherenc e Tomography Narrative 08/18/2024 2:00 PM BORDEREAU CLERK Right eye (OD) ; few small drusen Left eye (OS) few small drusen, flat superonasal choroidal lesion without subretinal fluid Michell Anne MD PhD OPHTH TOMOGRAPHY Fin al Result * COLONOSCOPY (06/30/2018 9:24 AM CDT) Anatomical Region Laterality Modality Other Narrative Procedure Note Genevieve Cunningham MD - 06/30/2018 9:24 AM CDT [facility] Patient Name: Blake Samaniego Procedure Date: 06/30/2018 9:24 AM Date of : 1955 Admit Type: Outpatient Age: 62 Gender: Male Attending MD: Genevieve Cunningham MD Room: [facility] ENDOSCOPY ROOM 1 Note Status: Finalized [...] passed under direct vision.The Pediatric Colonoscope PCF-H190L [id number] was introduced through the anus and advanced [...] 9:24 AM Procedure Code(s): --- Professional --- 99806, Colonoscopy, flexible; with biopsy, single or multiple Diagnosis Code(s): --- Professional --- Z86.010, Personal history of colonic polyps K64.8, Other hemorrhoids K62.1, Rectal polyp CPT copyright 2017 [employer]. All rights reserved. The codes documented in this report are preliminary and upon physician coder reviewmay be revised to meet current compliance requirements. Recognized by the [employer] for promoting quality in endoscopy Genevieve Cunningham MD ENDOSCOPY PROCEDURES Final Result from Last 3 Months or Most Recently Relevant to Health Maintenance Insurance MEDICARE [facility] Advance Directives For more information, please contact: [phone] * Full Code (Latest Code Status on File) Date Activated Date Inactivated Comments 06/30/2018 8:14 AM 06/30/2018 12:42 PM Care Teams Take Away Attendant Relationship Specialty Start Date End Date Jamal Santamaria MD [address] [place] [address] PCP - General 06/25/18
--- OUTSIDE RECORDS SUMMARY | 2024-10-27 04:22 | XMS_ITS | Encounter Summary ---
Author Organization [facility] Address [address] [place] [address] Care Team Providers Care Associate Professor Of Forestry Name Role Phone Jamal Santamaria MD Primary Care Provider Encounter Details Date Type Department Care Team (Late st Contact Info) Description 06/30/2018 9:33 AM CDT Anesthesia Event [address] [address] [place] [address] [place], [place] [id number] Anesthesia Record Procedure Summary Procedure Name Responsible Anesthesiologist Anesthesia Start Time Anesthesia Stop Time Colon Biopsy Mode Fletcher MD 06/30/18 0933 06/30/18 0949 Events Date Time Event Comment 06/30/2018 0854 0930 In Room 0933 An Start 0933 An Start Data 0933 Start Supplemental O2 0935 Patient Positioned Laterally 0935 An Induction The patient was reevaluated immediately before moderate or deep sedation use and before anesthesia induction. 0935 Proc Start 0936 Anesthesia Ready 0949 an stop data 0949 Handoff to RN I completed my handoff to the receiving nurse during which we: 1. Patient identified 2. Responsible provider identified 3. Pertinent medical history reviewed 4. Procedure type and surgical course discussed 5. Intraoperative anesthetic management and any significant issues discussed 6. Expectations and concerns for postop period discussed 7. Questions solicited from receiving nurse 8. Patient disposition at the time of handoff: PACU 0949 Proc Fin 0949 An Stop 0953 Out of Room Meds Name Total lidocaine (cardiac) syringe 2 % 40 mg propofol 160 mg sodium chloride 0.9% infusion 400 mL * Agents Name O2 * Blood No blood administrations on file. Lines, Drains, and Airways Type Details Placement Removal Peripheral IV Placement Date: 06/14 04/30; Placement Time: 32; Catheter Size: 20 G; Orientation: Right; Location: Antecubital; Site Prep: Chlorhexidine; Technique: Anatomical landmarks; Inserted by: Moriah RICHARDSON ([facility]); Insertion Attempts: 3; Patient Tolerance: Tolerated well; Removal Date: 06/30/18; Removal Time: 1031 06/30/18 0832 by Odalys Harrington RN 06/30/18 1031 by Odalys Harrington, RN documented in this encounter Social History Tobacco Use Types Packs/Day Years Used Date Smoking Tobacco: Former Smokeless Tobacco: Never Comments:very little Sex and Gender Information Value Date Recorded Sex Assigned at Not on file 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 Gender Identity Not on file Sexual Orientation Not on file documented as of this encounter OR Notes * Anesthesia Postprocedure Evaluation - Mode Fletcher MD - 06/30/2018 10:14 AM CDT Patient: Blake Samaniego Procedure Summary Date: 06/30/18 Room / Location: [facility] ENDOSCOPY ROOM 1 / [facility] ENDOSCOPY Anesthesia Start: 932 Anesthesia Stop: 948 Procedure: Colon Biopsy (N/A ) Diagnosis: (COLONOSCOPY SCREENING) Provider: Genevieve Cunningham MD Responsible Provider: Mode Fletcher MD Anesthesia Type: MAC ASA Status: 2 Anesthesia Type: MAC Last vitals BP 113/67 Pulse 53 Temp 36.1 ??C (96.9 ??F) (Tympanic) Resp 18 SpO2 100% Anesthesia Post Evaluation Patient location during evaluation: PACU Patient participation: complete - patient participated Level of consciousness: fully awake Pain score: 0 Pain management: adequate Airway patency: adequate Evidence of recall: no Anesthetic complications: no Cardiovascular status: acceptable Respiratory status: acceptable Hydration status: acceptable Pt is: normothermic Nausea/Vomiting status: none * Anesthesia Preprocedure Evaluation - Mode Fletcher, MD - 06/30/2018 8:46 AM CDT Anesthesia Evaluation Blake Samaniego is a 62 y.o. male Procedure(s): Colonoscopy HISTORY Past Medical History Information obtained from: patient and chart. Cardiovascular + Hypertension Musculoskeletal/Pain + Chronic pain - back pain. Functional Capacity Functional capacity: 4-6 METs Review of Systems + chronic pain There is no problem list on file for this patient. Past Medical History: Diagnosis Date ??? Colon polyp ??? Hypertension Past Surgical History: Procedure Laterality Date ??? BACK SURGERY 15 years ago ??? COLONOSCOPY 12/26/2009 Allergies Allergen Reactions ??? Penicillins Itching HOME MEDICATIONS : losartan (COZAAR) 100 mg tablet Current Facility-Administered Medications: ??? ondansetron (ZOFRAN) injection 4 mg, 4 mg, intravenous, Q30 Min PRN ??? sodium chloride 0.9% flush 0.5-20 mL, 0.5-20 mL, intra-catheter, Q8H CHARLENE ??? sodium chloride 0.9% flush 0.5-20 mL, 0.5-20 mL, intra-catheter, PRN ??? sodium chloride 0.9% infusion, 30 mL/hr, intravenous, Continuous, Last Rate: 30 mL/hr at 06/30/18 0833, 30 mL/hr at 06/30/18 0833 ??? sodium chloride 0.9% infusion, 125 mL/hr, intravenous, Continuous Social History Smoking Status ??? Former Smoker Smokeless Tobacco ??? Never Used Comment: very little Alcohol use Not on file Drug use: Unknown History reviewed. No pertinent family history. PAT Physical Exam Vitals: 06/30/18 0806 BP: 144/93 Pulse: 57 Resp: 18 Temp: 36.1 ??C (96.9 ??F) SpO2: 100% PT: No results found for requested labs within last 720 hours. INR: No results found for requested labs within last 720 hours. APTT: No results found for requested labs within last 720 hours. Hgb A1C: No results found for requested labs within last 720 hours. CBC RBC: No results found for requested labs within last 720 hours. RDW: No results found for requested labs within last 720 hours. MCHC: No results found for requested labs within last 720 hours. MCH: No results found for requested labs within last 720 hours. MCV: No results found for requested labs within last 720 hours. Hct: No results found for requested labs within last 720 hours. Hgb: No results found for requested labs within last 720 hours. WBC: No results found for requested labs within last 720 hours. MPV: No results found for requested labs within last 720 hours. Platelets: No results found for requested labs within last 720 hours. RDW CV: No results found for requested labs within last 720 hours. RDW Sd: No results found for requested labs within last 720 hours. BMP Glucose: No results found for requested labs within last 720 hours. Calcium: No results found for requested labs within last 720 hours. Sodium: No results found for requested labs within last 720 hours. Potassium: No results found for requested labs within last 720 hours. CO2: No results found for requested labs within last 720 hours. Chloride: No results found for requested labs within last 720 hours. BUN: No results found for requested labs within last 720 hours. Creatinine: No results found for requested labs within last 720 hours. STOP-Bang Total Score: 6 DOS Physical Exam Medical history, medications, and allergies reviewed. Attestation: I endorse the findings of the anesthesia pre-evaluation assessment dated: 06/30/2018. Airway Exam: Mallampati: II Cervical ROM: FROM TM distance: 3.5 Cardiovascular Exam: Rate: regular Rhythm: regular Pulmonary Exam: LCTA EENT Exam: trachea midline Dental Exam: Missing and otherwise appears intact Skin Exam: Skin is warm. Capillary refill is 3-5 seconds. Turgor is normal. Abdominal Exam: Abdomen is soft. Bowel sounds are present. Current state: Patient's current state is cooperative. Anesthesia Plan ASA 2 Planned anesthesia: MAC Induction: Induction: intravenous. Postoperative Plan: No plan for postoperative opioid use. No postoperative mechanical ventilation intended. Patient's planned disposition post procedure is Outpatient. Informed Consent: Discussed plan with attending. Anesthesia plan and risks discussed with patient. Consent and Attending signature: I and/or my designee have discussed the anesthesia plan, benefits, possible alternatives, parental presence at time of induction (if indicated), and clinically relevant risks that may include dental injury, unintentional awareness, and/or other complications. The patient and/or parent/legal guardian understand, and agree to proceed. All questions answered. documented in this encounter Plan of Treatment Not on file documented as of this encounter Visit Diagnoses Not on filedocumented in this encounter Administered Medications Inactive Administered Medications - up to 3 most recent administrations Medication Order MAR Action Action Date Dose Rate Site lidocaine (cardiac) (XYLOCAINE) preservative free injection intravenous, As needed, Starting on Sat06/30/18 at 0935, Anesthesia Intra-op, Indications: Ventricular ArrhythmiasIndications:Ventricular Arrhythmias Given 06/30/2018 9:35 AM CDT 40 mg propofol (DIPRIVAN) IV intravenous, As needed, Starting on Sat06/30/18 at 0935, Anesthesia Intra-op Given 06/30/2018 9:45 AM CDT 50 mg Given 06/30/2018 9:40 AM CDT 50 mg Given 06/30/2018 9:35 AM CDT 60 mg sodium chloride 0.9% infusion 125 mL/hr, intravenous, Continuous, Starting on Sat06/30/18 at 0845, Recovery (GI) New Bag 06/30/2018 9:30 AM CDT documented in this encounter Care Teams Associate Professor Of Forestry Relationship Specialty Start Date End Date Jamal Santamaria MD [address] [place] [address] PCP - General 06/25/18 documented as of this encounter
--- OUTSIDE RECORDS SUMMARY | 2024-10-27 04:22 | XMS_ITS | Encounter Summary ---
Author Organization [facility] Address [address] [place] [address] Care Team Providers Care Claim Trainee Name Role Phone Jamal Santamaria MD Primary Care Provider Encounter Details Date Type Department Care Team (Late st Contact Info) Description 06/30/2018 9:00 AM CDT - 06/30/2018 9:30 AM CDT Surgery [facility] Digestive [facility] [address] [place] [address] Genevieve Cunningham MD [address] [place] [address] Colon Biopsy Surgery Details Date/Time Status Location OR Service Patient Class Case Class Case Type Trauma Case? 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 Gender Identity Not on file Sexual Orientation Not on file documented as of this encounter Last Filed Vital Signs Vital Sign Reading Time Taken Comments Blood Pressure 144/93 06/30/2018 8:06 AM CDT Pulse 57 06/30/2018 8:06 AM CDT Temperature 36.1 ??C (96.9 ??F) 06/30/2018 8:06 AM CD T Respiratory Rate 18 06/30/2018 8:06 AM CDT Oxygen Saturation 100% 06/30/2018 8:06 AM CDT Inhaled Oxygen Concentration - - [...] - 06/30/2018 9:24 AM CDTAssociated Order(s): COLONOSCOPY [facility] Patient Name: Blake Samaniego Procedure Date: 06/30/2018 9:24 AM Date of : 1955 Admit Type: Outpatient Age: 62 Gender: Male Attending MD: Genevieve Cunningham MD Room: [facility] ENDOSCOPY ROOM 1 Note Status: Finalized Patient [...] under direct vision. The Pediatric Colonoscope PCF-H190L [id number] was introduced through the anus and advanced [...] 9:24 AM Procedure Code(s): --- Professional --- 19454, Colonoscopy, flexible; with biopsy, single or multiple Diagnosis Code(s): --- Professional --- Z86.010, Personal history of colonic polyps K64.8, Other hemorrhoids K62.1, Rectal polyp CPT copyright 2017 [employer]. All rights reserved. The codes documented in this report are preliminary and upon food broker review may be revised to meet current compliance requirements. Recognized by the [employer] for promoting quality [...] results best viewed via link to PDF [facility] Department of Pathology [address] [place] [address] Final Report Patient Name: ??BLAKE SAMANIEGOSayda Address: ??[address] [place] [address], ??[place], [place] ??[address] Gender: ??M : ??1955 (Age: 62) Service: ??Gastro Location: ??[facility] #: ??[id number] Patient Type: ??[facility] Accession # ?[id number] Taken: ??06/30/2018 Received: ??06/30/2018 Accessioned: ??06/30/2018 Reported: [...] submitted in a single container labeled Blake Grimes. Ladioni and rectal . ??It is one arvizu [...] determined by the Surgical Pathology Department at [facility] as part of an ongoing quality control systems manager program and in compliance with federally mandated [...] characteristics determined by the Surgical Pathology Department [facility]. ??It has not been cleared or approved by the U. S. Food and Drug Administration. Genevieve Cunningham MD LAB PATHOLOGY ORDERABLES F inal Result * COLONOSCOPY (06/30/2018 9:24 AM CDT) Anatomical Region Laterality Modality Other Narrative Procedure Note Genevieve Cunningham MD - 06/30/2018 9:24 AM CDT [facility] Patient Name: Blake Samaniego Procedure Date: 06/30/2018 9:24 AM Date of : 1955 Admit Type: Outpatient Age: 62 Gender: Male Attending MD: Genevieve Cunningham MD Room: [facility] ENDOSCOPY ROOM 1 Note Status: Finalized Patient [...] passed under direct vision.The Pediatric Colonoscope PCF-H190L [id number] was introduced through the anus and advanced [...] 9:24 AM Procedure Code(s): --- Professional --- 83920, Colonoscopy, flexible; with biopsy, single or multiple Diagnosis Code(s): --- Professional --- Z86.010, Personal history of colonic polyps K64.8, Other hemorrhoids K62.1, Rectal polyp CPT copyright 2017 [employer]. All rights reserved. The codes documented in this report are preliminary and upon food broker reviewmay be revised to meet current compliance requirements. Recognized by the [employer] for promoting quality in endoscopy us Genevieve Cunningham MD ENDOSCOPY PROCEDURES Final Result documented in this encounter Visit Diagnoses Not on filedocumented [...] 0833 (New Bag - Prov ider: Odalys D. Leahey, RN) sodium chloride 0.9% infusion 125 mL/hr, [...] 06/30/2018 documented in this encounter Care Teams Claim Trainee Relationship Specialty Start Date End Date Jamal Santamaria MD [address] [place] [address] PCP - General 06/25/18 documented as of this encounter
--- OUTSIDE RECORDS SUMMARY | 2024-10-27 04:22 | XMS_ITS | Encounter Summary ---
Author Organization [facility] Address [address] [place] [address] Phone Care Team Providers Care Tool Technician Name Role Phone Jamal Santamaria MD Primary Care Provider + [phone] Reason for Referral * Diagnostic Imaging (Routine) - Closed Specialty Diagnoses / Procedures Referred By Gonzalez ochoa Referred To Contact Diagnoses Optic cupping of both eyes Encounter for observation for other suspected diseases and conditions ruled out Procedures OCT, Retina - OU - Both Eyes Karl Strickland, OD [address] [address] Phone: tel: fax: [facility] (All Locations) Referral ID Status Reason Start Date Expiration Date Visits Re quested Visits Authorized [id number] Closed 05/07/2024 06/06/2025 1 1 Reason for Visit * Reason Comments Optic cupping of both eyes Nevus of choroid of left eye * Diagnostic Imaging (Routine) - Closed Specialty Diagnoses / Procedures Referred By Gonzalez ochoa Referred To Contact Diagnoses Optic cupping of both eyes Procedures Persaud Visual Field - OU - Both Eyes Karl Strickland, OD [address] [address] Phone: tel: fax: [facility] (All Locations) Referral ID Status Reason Start Date Expiration Date Visits Re quested Visits Authorized [id number] Closed 01/08/2024 02/06/2025 1 1 Encounter Details Date Type Department Care Team (Late st Contact Info) Description 05/20/2024 8:30 AM CDT Office Visit [facility] Ophthalmology [address] [facility] 6th Floor, [address] [place] for [facility] [place] [address] Karl Strickland, OD [address] [facility] [address] [place] [address] Optic cupping of both eyes (Primary Dx); Nevus of choroid of left eye Social History Tobacco Use Types Packs/Day Years Used Date Smoking Tobacco: Former Smokeless Tobacco: Never Comments:very little Sex and Gender Information Value Date Recorded Sex Assigned at Not on file Legal Sex Male 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 Anne x 02/12/2024, returns for follow-up with glaucoma suspect testing (HVF 24-2, OCTs, pachymetry) and IOP check today. - Patient to follow-up with Dr. Anne on 08/18/2024 - Patient last consulted with Dr. Strickland x 01/08/2024 Reports stable vision both eyes (OU), monitoring for nevus w Dr. 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 Full Persaud visual field (HVF) and no concerning GCC or RNFL thinning on OCT. Pachs slightly thicker than average, angle appears open on VH. Educated on all exam findings and recommended monitoring yearly with reassuring workup. RTCsooner PRN Relevant Orders OCT, Retina - OU - Both Eyes (Completed) Nevus of choroid of left eye Current Assessment & Plan Continue close monitoring w retina Persaud Visual Field - OU - Both Eyes Component Pattern Deviation OS 1.37 Pattern Deviation OD 1.79 Mean Deviation OS -0.73 Mean Deviation OD -1.79 Right Eye Fixation was good. Cooperation was [...] Deviation was -0.73. Pattern Deviation was 1.37. OCT, Optic Nerve - OU - Both Eyes Component Value Flag Ref Range Units Status RNFL OS 92 micrometers RNFL OD 92 micrometers Right Eye Reliability was good. Temporal thickness was normal. Superior thickness was normal. Nasal thicknesswas normal. Inferior thickness was normal. Average RNFL thickness 92 micrometers. Left Eye Reliability was good. Temporal thickness was normal. Superior thickness was normal. Nasal thicknesswas normal. Inferior thickness was normal. Average RNFL thickness 92 micrometers. OCT, Retina - OU - Both Eyes Component Value Flag Ref Range Units Status Central Macular Thickness OS 271 mircometers Central Macular Thickness OD 273 micrometers Right Eye Quality was good. Scan locations included subfoveal, juxtafoveal. Progression has no prior data. Findings include normal foveal contour. Macular thickness was 273 micrometers. Left Eye Quality was good. Scan locations included subfoveal, juxtafoveal. Progression has no prior data. Findings include normal foveal contour. Macular thickness was 271 mircometers. Notes No concerning GCC thinning right eye (OD) or left eye (OS) The signs and symptoms of retinal detachment, tears, infection, elevated intra- ocular pressure werereviewed with the patient. Patient knows to call should they have any of the symptoms. PLAN FOR NEXT VISIT Return for 1yr HVF 24-2SF, OCT ON/GCC, DFE. documented in this encounter Miscellaneous Notes * Assessment & Plan Note - Karl Strickland, OD - 05/20/2024 1:33 PM CDT Associated Problem(s): Nevus of choroid of left eye Continue close monitoring w retina * Assessment & Plan Note - Karl Strickland, OD - 05/20/2024 1:33 PM CDT Associated Problem(s): Optic cupping of both eyes Pt's intraocular pressure (IOP) stable mid teens both eyes (OU). Full Persaud visual field (HVF) and no concerning GCC or RNFL thinning on OCT. Pachs slightly thicker than average, angle appears open on VH. Educated on all exam findings and recommended monitoring yearly with reassuring workup. RTCsooner PRN documented in this encounter Plan of Treatment Not on file documented as of this encounter Procedures Procedure Name Priority Date/Time Associated Diagnosis Comments OCT, RETINA - OU - BOTH EYES Routine 05/20/2024 8:12 AM CDT Optic cupping of both eyes OCT, OPTIC NERVE - OU - BOTH EYES Routine 05/20/2024 8:11 AM CDT Optic cupping of both eyes PERSAUD VISUAL FIELD - OU - BOTH EYES Routine 05/20/2024 8:11 AM CDT Optic cupping of both eyes documented in this encounter Results * OCT, Retina - OU - Both Eyes (05/20/2024 8:12 AM CDT) Central Macular Thickness OS 271 mircometers CONTINUUM Central Macular Thickness OD 273 micrometers CONTINUUM Anatomical Region Laterality Modality Head Other Narrative 05/20/2024 1:35 PM CDT Right Eye Quality was good. Scan locations included subfoveal, juxtafoveal. Progression has no prior data. Findings include normal foveal contour. Macular thickness was 273 micrometers. Left Eye Quality was good. Scan locations included subfoveal, juxtafoveal. Progression has no prior data. Findings include normal foveal contour. Macular thickness was 271 mircometers. Notes No concerning GCC thinning right eye (OD) or left eye (OS) Karl Strickland OD OPHTH TOMOGRAPHY Final Result * OCT, Optic Nerve - OU - [...] Deviation was -0.73. Pattern Deviation was 1.37. Result [facility] Karl Strickland OD OPHTH VISUAL FIELD Final Resul t documented in this encounter Visit Diagnoses Diagnosis Optic cupping of both eyes- Primary Nevus of choroid of left eye documented in this encounter Eye Exam Visual Acuity (Snellen - Linear) Right eye Left eye Dist cc 20/20 20/20 Tonometry (Applanation, 8:26 AM) Right eye Left eye Pressure 16 17 Pachymetry (05/20/2024) Right eye Left eye Thickness 584 579 Pupils Pupils Dark Light Shape React APD Right eye PERRL 4 2 Round 4 None Left eye PERRL 4 2 Round 4 None Visual Thrasher (Counting fingers) Right eye Left eye Full Full Please refer to [facility] 24-2 for formal testing. OS: possible enlarged blind spot? Neuro/Psych Oriented x3: Yes Mood/Affect: Normal Dilation Deferred to O.D. for undilated gonioscopy External Exam Right eye Left eye External Normal Normal Slit Lamp Exam Right eye Left eye Lids/Lashes Normal Normal Conjunctiva/Sclera White and quiet White and saul et Cornea Clear Clear Anterior Chamber Deep and quiet Deep and quiet Iris Round and reactive Round and shayne ctive Lens 1+ Nuclear sclerosis 1+ Nuclear sclerosis Anterior Vitreous Normal Normal Fundus Exam Right eye Left eye Disc Normal Normal C/D Ratio 0.55 0.6 Care Teams Tool Technician Relationship Specialty Start Date End Date Jamal Santamaria MD [address] [place] [address] PCP - General 06/25/18 documented as of this encounter
--- OUTSIDE RECORDS SUMMARY | 2024-10-27 04:22 | XMS_ITS | Encounter Summary ---
Author Organization [facility] Address [address] [place] [address] Phone Care Team Providers Care Rug Measurer Name Role Phone Jamal Santamaria MD Primary Care Provider + [phone] Reason for Visit * Diagnostic Imaging (Routine) - Closed Specialty Diagnoses / Procedures Referred By Gonzalez ochoa Referred To Contact Diagnoses Optic cupping of both eyes Procedures OCT, Optic Nerve - OU - Both Eyes Karl Strickland, OD [address] [address] Phone: tel: fax: [facility] (All Locations) Referral ID Status Reason Start Date Expiration Date Visits Re quested Visits Authorized [id number] Closed 01/08/2024 02/06/2025 1 1 Encounter Details Date Type Department Care Team (Late st Contact Info) Description 05/20/2024 7:50 AM CDT Imaging Exam [facility] Ophthalmology [address] [facility] 6th [place] [id number] Social History Tobacco Use Types Packs/Day Years Used Date Smoking Tobacco: Former Smokeless Tobacco: Never Comments:very little Sex and Gender Information Value Date Recorded Sex Assigned at Not on file 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
--- OUTSIDE RECORDS SUMMARY | 2024-10-27 04:22 | XMS_ITS | Encounter Summary ---
Author Organization [facility] Address [address] [place] [address] Phone Care Team Providers Care Manager Heart Name Role Phone Jamal Santamaria MD Primary Care Provider + [phone] Reason for Visit * Diagnostic Imaging (Routine) - Closed Specialty Diagnoses / Procedures Referred By Gonzalez t Referred To Contact Diagnoses Optic cupping of both eyes Procedures Persaud Visual Field - OU - Both Eyes Karl Strickland, OD [address] [address] Phone: tel: fax: [facility] (All Locations) Referral ID Status Reason Start Date Expiration Date Visits Re quested Visits Authorized [id number] Closed 01/08/2024 02/06/2025 1 1 Encounter Details Date Type Department Care Team (Late st Contact Info) Description 05/20/2024 8:00 AM CDT Imaging Exam [facility] Ophthalmology [address] [facility] 6th [place] [address] Social History Tobacco Use Types Packs/Day Years Used Date Smoking Tobacco: Former Smokeless Tobacco: Never Comments:very little Sex and Gender Information Value Date Recorded Sex Assigned at Not on file 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 Gender Identity Not on file Sexual Orientation Not on file documented as of this encounter Plan of Treatment Not on file documented as of this encounter Procedures Procedure Name Priority Date/Time Associated Diagnosis Comments PERSAUD VISUAL FIELD - OU - BOTH EYES Routine 05/20/2024 8:11 AM CDT Optic cupping of both eyes documented in this encounter Results * Persaud Visual Field - OU - [...] t documented in this encounter Visit Diagnoses Not on filedocumented in this encounter Care Teams Manager Heart Relationship Specialty Start Date End Date Jamal Santamaria MD [address] [place] [address] PCP - General 06/25/18 documented as of this encounter
--- OUTSIDE RECORDS SUMMARY | 2024-10-27 04:22 | XMS_ITS | Encounter Summary ---
Author Organization [facility] Address [address] [place] [address] Phone Care Team Providers Care Secondary Social Studies Teacher Name Role Phone Jamal Santamaria MD Primary Care Provider Reason for Visit * Reason Comments New patient, examination Encounter Details Date Type Department Care Team (Late st Contact Info) Description 01/08/2024 10:00 AM CDT Office Visit [facility] Ophthalmology [address] [facility] 6th Floor, [address] [place] [address] Karl Strickland, OD [address] [facility] [place] [place] [address] [place] [address] 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); Optic cupping of both eyes; Prediabetes Social History Tobacco Use Types Packs/Day Years Used Date Smoking Tobacco: Former Smokeless Tobacco: Never Comments:very little Sex and Gender Information Value Date Recorded Sex Assigned at Not on file 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 male, new to clinic, presents to establish ocular care today. 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 REYES 2-3 years ago - normal at that point Patient reports being diagnosed as pre-diabetic, but only under diet and exercise control. Endorsesocular dryness with watering. Denies any seasonal allergies. No gtt usage. Floaters OU, but stable. Intermittent flashes of light, noted when he is hunting. [Family Hx] ?? ARMD: Mother (receives intravitreal injections) No FHx glaucoma ASSESSMENT/ORDERS/PROCEDURES PERFORMED TODAY Problem List Eye/Vision Problems Nevus of choroid of left eye - Primary Current Assessment & Plan In far periphery nasal left eye (OS), without elevation of orange pigment. Pt believes he may have been told this before. Educated on findings and need for close monitoring. RTC 2-3mo with Dr. Anne Relevant Orders Fundus Photos/FAF - OU - Both Eyes (Completed) Optic cupping of both eyes Current Assessment & Plan Mild-moderate cupping both eyes (OU) with intraocular pressure (IOP) that is normotensive. Educatedon findings and risks associated with glaucoma. Will schedule baseline glaucoma workup Other Prediabetes Current Assessment & Plan No diabetic ophthalmic changes noted right eye (OD) or left eye (OS). Educated on findings. Stressed importance of close blood sugar control/monitoring. Monitor. Fundus Photos/FAF - OU - Both Eyes Right Eye Quality was good. Progression has no prior data. Disc findings include normal observations. Macula findings include normal observations. Vessel findings include normal observations. Periphery findings include normal observations. Left Eye Quality was good. Progression has no prior data. Macula findings include normal observations. Vessel findings include normal observations. Periphery findings include normal observations. Notes Flat nevus nasal periphery left eye (OS) without orange pigment The signs and symptoms of retinal detachment, tears, infection, elevated intra- ocular pressure werereviewed with the patient. Patient knows to call should they have any of the symptoms. PLAN FOR NEXT VISIT Return for 2mo Dr. Anne - choroidal nevus OS, 4-6mo Em with HVF 24-2SF, OCT ON/GCC, Pachs, IOP . documented in this encounter Miscellaneous Notes * Assessment & Plan Note - Karl Strickland, OD - 01/08/2024 11:27 AM CDT Associated Problem(s): Prediabetes No diabetic ophthalmic changes noted right eye (OD) or left eye (OS). Educated on findings. Stressed importance of close blood sugar control/monitoring. Monitor. * Assessment & Plan Note - Karl Strickland, OD - 01/08/2024 11:27 AM CDT Associated Problem(s): Optic cupping of both eyes Mild-moderate cupping both eyes (OU) with intraocular pressure (IOP) that is normotensive. Educatedon findings and risks associated with glaucoma. Will schedule baseline glaucoma workup * Assessment & Plan Note - Karl Strickland, OD - 01/08/2024 11:26 AM CDT Associated Problem(s): Nevus of choroid of left eye In far periphery nasal left eye (OS), without elevation of orange pigment. Pt believes he may have been told this before. Educated on findings and need for close monitoring. RTC 2-3mo with Dr. Anne documented in this encounter Plan of Treatment Not on file documented as of this encounter Procedures Procedure Name Priority Date/Time Associated Diagnosis Comments FUNDUS PHOTOS/FAF - OU - BOTH EYES Routine 01/08/2024 11:19 AM CDT Nevus of choroid of left eye documented in this encounter Results * Fundus Photos/FAF - OU - Both Eyes (01/08/2024 11:19 AM CDT) Anatomical Region Laterality Modality Head Fundus Photograp hy Narrative 01/08/2024 11:28 AM CDT Right Eye Quality was good. Progression has no prior data. Disc findings include normal observations. Macula findings include normal observations. Vessel findings include normal observations. Periphery findings include normal observations. Left Eye Quality was good. Progression has no prior data. Macula findings include normal observations. Vessel findings include normal observations. Periphery findings include normal observations. Notes Flat nevus nasal periphery left eye (OS) without orange pigment us Karl Strickland OD OPHTH PHOTOGRAPHY Edited Resul t - Final documented in this encounter Visit Diagnoses Diagnosis Nevus of choroid of left eye- Primary Optic cupping of both eyes Prediabetes Other abnormal glucose documented in this encounter Historical Medications * This list may reflect changes made after this encounter. Lactobacillus acidophilus 20 billion cell capsule Take 1 capsule by mouth daily omega-3 fatty acids-fish oil 300-1,000 mg capsule Take 1.35 g by mouth daily added in this encounter Eye Exam Visual Acuity (Snellen - Linear) Right eye Left eye Dist cc 20/15 -2 20/20- Near cc J1+ J1+ (-) Correction: Glasses Tonometry (Applanation, 10:44 AM) Right eye Left eye Pressure 18 19 Pupils Pupils Dark Light Shape React APD Right eye PERRL 4 3 Round Brisk None Left eye PERRL 4 3 Round Brisk None Visual Thrasher (Counting fingers) Right eye Left eye Full Full Extraocular Movement Right eye Left eye Full Full Neuro/Psych Oriented x3: Yes Mood/Affect: Normal Dilation Both eyes: 1.0% Mydriacyl, 2 .5% Phenylephrine @ 10:44 AM Glare Testing (Transilluminator) Medium High Right eye 20/15 20/20 Left eye 20/20 20/25 External Exam Right eye Left eye External Normal Normal Slit Lamp Exam Right eye Left eye Lids/Lashes Normal Normal Conjunctiva/Sclera White and quiet White and saul et Cornea Clear Clear Anterior Chamber Deep and quiet Deep and quiet Iris Round and reactive Round and shayne ctive Lens Clear Clear Anterior Vitreous Normal Normal Fundus Exam Right eye Left eye Disc Normal Normal C/D Ratio 0.55 0.6 Macula Normal Normal Vessels Normal Normal Periphery Normal 3DD flat round c horoidal nevus nasal without orange pigment, cobblestone vs pigmented lattice - no holes/tears Wearing Rx Sphere Cylinder [place] Add Right eye -6.00 +0.75 132 +2.50 Left eye -6.75 +1.25 059 +2.50 Age: 6181-1687 Type: PAL Manifest Refraction Sphere Cylinder [place] Dist VA Add Right eye -6.00 +0.75 132 20/15- +2.75 Left eye -6.75 +0.75 059 20/20- +2.75 Dist VA Both: 20/15- Near VA Both: J1+ Final Rx Sphere Cylinder [place] Dist VA Add Right eye -6.00 +0.75 132 20/15- +2.75 Left eye -6.75 +0.75 059 20/20- +2.75 Care Teams Secondary Social Studies Teacher Relationship Specialty Start Date End Date Jamal Santamaria MD [address] [place] [address] PCP - General 06/25/18 documented as of this encounter
--- OUTSIDE RECORDS SUMMARY | 2024-10-27 04:22 | XMS_ITS | Encounter Summary ---
Author Organization [facility] Address [address] [place] [address] Phone Care Team Providers Care Grove Superintendent Name Role Phone Jamal Santamaria MD Primary Care Provider [phone] Reason for Referral * Diagnostic Imaging (Routine) - Authorized Specialty Diagnoses / Procedures Referred By Gonzalez ochoa Referred To Contact Diagnoses Nevus of choroid of left eye Procedures B-SCAN ULTRASOUND 72664 - OS - LEFT EYE Michell Anne MD PhD [address] [address] Phone: tel: fax: [facility] (All Locations) Referral ID Status Reason Start Date Expiration Date V isits Requested Visits Authorized [id number] Authorized 02/12/2024 03/13/2025 1 1 Reason for Visit * Reason Comments Nevus of choroid of left eye Encounter Details Date Type Department Care Team (Late st Contact Info) Description 02/12/2024 10:30 AM CDT Office Visit [facility] Ophthalmology 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 Most consistent with benign, choroidal nevus at this time.Patient notes likely mentioned several years ago but uncertain. Given no prior documentation, recommend follow up for re-evaluation. Follow up 6 months PLAN FOR NEXT VISIT Return in about 6 months (around 08/14/2024) for OCT OU, Dilated exam, Fundus Photos OU, A/B scan. documented in this encounter Miscellaneous Notes * Assessment & Plan Note - Michell Anne MD PhD - 02/12/2024 12:14 PM CDTAssociated Problem(s): Nevus of choroid of left eye Small, nasal pigmented choroidal lesion. documented in this encounter Plan of Treatment Not on file documented as of this encounter Procedures Procedure Name Priority Date/Time Associated Diagnosis Comments B-SCAN ULTRASOUND 53992 - OS - LEFT EYE Routine 02/12/2024 12:26 PM CDT Nevus of choroid of left eye FUNDUS PHOTOS/FAF - OU - BOTH EYES Routine 02/12/2024 12:17 PM CDT Nevus of choroid of left eye documented in this encounter Results * B-SCAN ULTRASOUND 82050 - OS - LEFT EYE (02/12/2024 12:26 PM CDT) Clock Hour 9 O'Clock CONTINUUM Anatomical Region Laterality Modality Head Ultrasound Narrative 02/12/2024 12:26 PM CDT 9 O'Clock. Notes Flat Michell Anne MD PhD OPHTH ULTRASOUND Fin al Result * Fundus Photos/FAF - OU - Both Eyes (02/12/2024 12:17 PM CDT) Anatomical Region Laterality Modality Head Fundus Photograp hy Narrative 02/12/2024 12:17 PM CDT Right eye (OD): wnl Left eye (OS): small , nasal pigmented choroidal lesion Michell Anne MD PhD OPHTH PHOTOGRAPHY Fi nal Result documented in this encounter Visit Diagnoses Diagnosis Nevus of choroid of left eye- Primary documented in this encounter Eye Exam Visual Acuity (Snellen - Linear) Right eye Left eye Dist cc 20/20 20/20 Correction: Glasses Tonometry (Tonopen, 10:28 AM) Right eye Left eye Pressure 15 15 Pupils Dark Light Shape React APD Right eye 4 3 Round Brisk None Left eye 4 3 Round Brisk None Visual Thrasher (Counting fingers) Right eye Left eye Full Full Extraocular Movement Right eye Left eye Full Full Neuro/Psych Oriented x3: Yes Mood/Affect: Normal Dilation Both eyes: 1.0% Mydriacyl @ 10:28 AM External Exam Right eye Left eye External Normal Normal Slit Lamp Exam Right eye Left eye Lids/Lashes Normal Normal Conjunctiva/Sclera White and quiet White and saul et Cornea Clear Clear Anterior Chamber Deep and quiet Deep and quiet Iris Dilated Dilated Lens 1+ Nuclear sclerosis 1+ Nuclear sclerosis Anterior Vitreous Normal Normal Fundus Exam Right eye Left eye Posterior Vitreous Vitreous syneresis, Posterior vitreous detachment Normal Disc Normal Normal Macula Normal Normal Vessels Normal Normal Periphery cobblestone Small, nasal, pi gmented choroidal lesion, Choroidal nevus, cobblestone Care Teams Grove Superintendent Relationship Specialty Start Date End Date Jamal Santamaria MD [address] [place] [address] PCP - General 06/25/18 documented as of this encounter
--- NOTE | 2024-11-06 12:55 | WPDHOLTEREM ---
Holter/Event Monitor Holter/Event Monitor Date of procedure: 10/20/24 Holter/Event Procedure: Event Monitor Indications: Palpitations Conclusion: 1. 14 day event monitor on 10/20/24. 2. Predominant rhythm is sinus rhythm. HR range 42-156 bpm; average HR 62 bpm. HR at 42 bpm was on 10/26/24 at 11:44 pm. 3. There are occasional premature supraventricular complexes, rare supraventricular couplets, and rare supraventricular triplets. There are 7 episodes of supraventricular tachycardia, fastest at 156 bpm and longest lasting 7 beats. 4. There are rare premature ventricular complexes, longest ventricular bigeminy lasting 5 seconds and longest ventricular trigeminy lasting 17 seconds. No ventricular tachycardia. 5. No significant pauses greater than 3 seconds. 6. No symptoms available for correlation.
== END 2024-10-20 10:06 | disposition home or self-care (01) ==
LOC: CHSCARD 10:07
PROVIDERS: PCP Internal Medicine; Visit Provider Internal Medicine
DX: R00.2 Palpitations (principal)
CPT/HCPCS: 93246

== ENCOUNTER 2025-06-21 13:45 | Outpatient (CLI) | payer MEDICARE, OTHER, SELFPAY ==
--- OUTSIDE RECORDS SUMMARY | 2025-06-21 13:56 | XMS_ITS | Clinical Summary ---
Author Organization [facility] Address [facility] [place] [address] Care Team Providers Care Diesel Locomotive Firer/Fireman Name Role Phone Unavailable Primary Care Provider [...] Td Vaccines ( 1 - Tdap) 1975 Pneumococcal Vaccine: 50+ Ye ars (1 of 1 - PCV) 2006 Zoster Vaccines (1 of 2) 2006 COVID-19 Vaccine ( - 2023-2 5 season) 2024 RSV Immunization or 60+ Years (1 - 1-dose 75+ series) 2031 Meningococcal B Vaccine Aged Out No l onger eligible based on patient's age to complete this topic Meningococcal Vaccine Aged Out No stella cortney eligible based on patient's age to complete this topic RSV Immunizations Under 20 Months Aged Out No longer eligible based on patient's age to complete this topic
--- OUTSIDE RECORDS SUMMARY | 2025-06-21 13:56 | XMS_ITS | Encounter Summary ---
Author Organization [facility] Address [address] [place] [address] Phone Care Team Providers Care Levelman Name Role Phone Jamal Santamaria MD Primary Care Provider [phone] Encounter Details Date Type Department Care Team (Late st Contact Info) Description 06/18/2025 Telephone [facility] Medicine Cardiology [address] 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 Patient is scheduled today for Pre-Op testing. FAX [phone] * Telephone Encounter - Michelle Wayne - 06/18/2025 4:08 PM CDT Faxed requested documents * Telephone Encounter - Martina Martinez - 06/18/2025 3:49 PM CDT Rosalio Wilkerson w/ [facility] calling and states patient is scheduled for Pre Op Testing on 06/21. She is requesting 12/28 OV notes and latest Echo and EKG results. She faxed request this morning and would like to know if you could fax info before end of day. documented in this encounter Plan of Treatment Not on file documented as of this encounter Visit Diagnoses Not on filedocumented in this encounter Care Teams Levelman Relationship Specialty Start Date End Date Jamal Santamaria MD [address] [place] [address] PCP - General 06/25/18 documented as of this encounter
--- OUTSIDE RECORDS SUMMARY | 2025-06-21 13:56 | XMS_ITS | Clinical Summary ---
Author Organization [facility] Address [address] [place] [address] Care Team Providers Care Regional Psychiatric Director Name Role Phone Jamal Santamaria MD Primary Care Provider [phone] Allergies Active Allergy Reactions Criticality Noted Date Comments Penicillins Itching Low 06/30/2018 Medications losartan (COZAAR) 100 mg tablet Take 1 tablet (100 mg total) by mouth daily 2 06/25/2018 Active omega-3 fatty acids-fish oil 300-1,000 mg capsule Take 1.35 g by mouth daily Active Lactobacillus acidophilus 20 billion cell capsule Take 1 capsule by mouth daily Active aspirin 81 mg enteric coated tabletIndication s:Family history of ischemic heart disease Take 1 tablet (81 mg total) by mouth daily Active magnesium oxide (MAG-OX) 250 mg (150.8 mg elemental) tabletIndication s:hypomagnesemia Take 1 tablet (250 mg total) by mouth daily 12/02/2024 Active atorvastatin (LIPITOR) 20 mg tablet Take 1 tablet (20 mg total) by mouth daily 30 tablet 11 12/22/2024 12/23/19 26 Active cholecalciferol, vitamin D3, (VITAMIN D3 ORAL) Take 1,000 Int'l Units/day by mouth daily Active Active Problems Problem Noted Date Diagnosed Date Nevus of choroid of left eye 01/08/2024 Assessment & Plan (05/20/2025 12:42 PM CDT): -follows annually with Dr. Anne -rosy on exam today without concerning features -follow Assessment & Plan (05/20/2024 1:33 PM CDT): [...] close monitoring. RTC 2-3mo with Dr. Anne Glaucoma suspect of both eyes 01/08/2024 Assessment & Plan (05/20/2025 12:42 PM CDT): 2/2 CDR OU -no known FHx -thick CCT OU -IOP normotensive today -OCT RNFL normal OU -HVF 24-2 normal OU +moderate myope, likely physiologic although will follow annually with testing -RTC 1 year HVF 24-2, OCT RNFL/GCC, DFE; sooner with issues Assessment & Plan (05/20/2024 1:34 PM CDT): [...] Encounters Date Type Department Care Team Description 06/18/2025 Telephone [facility] Cardiology [address] [facility] 8th [place] [address] [place] [address] Don Santamaria MD 05/20/2025 10:15 AM CDT Office Visit [facility] [address] [place] [phone] Esme Hogue, OD Glaucoma suspect of both eyes (Primary Dx); Nevus of choroid of left eye 05/20/2025 9:30 AM CDT Imaging Exam [facility] [address] [place] [address] Acute angle-closure glaucoma, bilateral 05/20/2025 9:20 AM CDT Imaging Exam [facility] [address] [place] [address] from Last 3 Months Surgical History Surgery [...] Passive Smoke Exposure: Never Smokeless Tobacco: Never Tobacco Cessation:Counseling Given: Not Answered Comments:very little Sex and Gender Information Value Date Recorded Sex Assigned at Not on file 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 Gender Identity Not on file Sexual Orientation Not on file Obstetrics History Last Filed Vital Signs Vital Sign Reading Time Taken Comments Blood Pressure 125/80 01/07/2025 9:15 AM CDT Pulse 58 01/07/2025 9:15 AM CDT Temperature 36.7 C (98 F) 12/28/2024 11:07 AM CDT Respiratory Rate 17 01/07/2025 9:15 AM CDT Oxygen Saturation 98% 12/28/2024 11:07 AM CDT Inhaled Oxygen Concentration - - Weight 88.9 kg (196 lb) 12/28/2024 11:07 AM CDT Height 180.3 cm (5' 11) 12/28/2024 11:07 AM CDT Body Mass Index 27.34 12/28/2024 11:07 AM CDT Plan of Treatment Health Maintenance Due Date Last Done Comments Albumin Creatinine Ratio, Urine 1955 Depression Screening 1955 Fall Risk Assessment 1955 Hemoglobin A1C 1956 Hepatitis C Screening 1956 Prostate Cancer Screening-PSA 1955 eGFR 1955 Foot Exam 1956 Hepatitis B Screening 1974 Abdominal Aortic Aneurysm (A AA) Screen 2021 Well Visit 65+ 2021 Covid-19 Vaccine (7 - 2024-2 6 season) 2025 07/06/2023, 09/08/2022, 02/02/2022, Additional history exists Influenza Vaccine (#1) 2025 , 06/29/2022, 07/14/2021, Additional history exists Lipid Panel 02/19/2026 02/19/2025 Dilated Eye Exam 05/20/2026 05/20/2025, 02/2024, 02/12/2024, Additional history exists Colon Cancer Screening-Colonoscopy 06/30/2028 06/30/2018 DTaP/Tdap/Td Vaccine (2 - Td or Tdap) 07/14/2031 07/14/2021 Colon Cancer Screening-CT Colonography Discontinued 06/30/2018 Colon Cancer Screening-DNA Stool Discontinued 06/30/20 Colon Cancer Screening-FIT Discontinued 06/30/2018 Colon Cancer Screening-Sigmoidoscopy Discontinued 06/30/2018 Zoster Vaccine Completed 01/14/2019, 10/15, 10/16/2017 Pneumococcal vaccine 65+ Completed 06/29/2022, 12/2017 Procedures Procedure Name Priority Date/Time Associated Diagnosis Comments OCT, OPTIC NERVE - OU - BOTH EYES Routine 05/20/2025 9:55 AM CDT Glaucoma suspect of both eyes PERSAUD VISUAL FIELD - OU - BOTH EYES Routine 05/20/2025 9:55 AM CDT Acute angle-closure glaucoma, bilateral LIPID PANEL Routine 02/19/2025 8:07 AM CDT Mixed hyperlipidemia PVC (premature ventricular contraction) Family history of ischemic heart disease COLONOSCOPY 06/30/2018 9:24 AM CDT from Last 3 Months or Most Recently Relevant to Health Maintenance Results * OCT, Optic Nerve - OU - Both Eyes (05/20/2025 9:55 AM CDT) RNFL OS 93 micrometers CONTINUUM RNFL OD 88 micrometers CONTINUUM Anatomical Region Laterality Modality Head Optical Coherenc e Tomography Narrative 05/20/2025 9:55 AM CDT Right Eye Reliability was good. Temporal progression was stable. Temporal thickness was normal. Superior progression was stable. Superior thickness was normal. Nasal progression was stable. Nasal thickness was normal. Inferior progression was stable. Inferior thickness was normal. Average RNFL thickness 88 micrometers. Left Eye Reliability was good. Temporal progression was stable. Temporal thickness was normal. Superior progression was stable. Superior thickness was normal. Nasal progression was stable. Nasal thickness was normal. Inferior progression was stable. Inferior thickness was normal. Average RNFL thickness 93 micrometers. Notes GCC: 72/73 Esme Hogue OD OPHTH TOMOGRAPHY Final Result * Persaud Visual Field - OU - Both Eyes (05/20/2025 9:55 AM CDT) Pattern Deviation OS 1.16 CONTINUUM Pattern Deviation OD 1.11 CONTINUUM Mean Deviation OS 0.57 CONTINUUM Mean Deviation OD 0.48 CONTINUUM Anatomical Region Laterality Modality Head Visual Field Narrative 05/20/2025 9:55 AM CDT Right Eye Fixation was good. Cooperation was good. Reliability was good. Progression has been stable. Foveal threshold was normal. Findings include normal observations. Mean Deviation was 0.48. Pattern Deviation was 1.11. Left Eye Fixation was good. Cooperation was good. Reliability was good. Progression has been stable. Foveal threshold was normal. Findings include normal observations. Mean Deviation was 0.57. Pattern Deviation was 1.16. Karl Strickland OD OPHTH VISUAL FIELD Final Resul t * Lipid panel (02/19/2025 8:07 AM CDT) Cholesterol 126 <200 mg/dL [facility] HDL 51 > OR = 40 mg/dL [facility] Triglycerides 73 <150 mg/dL [facility] LDL 60 mg/dL (calc) [facility] Comment: Reference range: <100 Desirable range <100 mg/dL for primary prevention; <70 mg/dL for patients with CHD or diabetic patients with > or = 2 CHD risk factors. LDL-C is now calculated using the Reggie-Chpaa calculation, which is a validated novel method providing better accuracy than the Friedewald equation in the estimation of LDL-C. Reggie SS et al. DIONICIO. 2013;310(19): 9494-5726 (http://education.Intent/faq/LCF827) Chol/HDL ratio 2.5 <5.0 (calc) [facility] Non-HDL, (LDL+VLDL) 75 <130 mg/dL (calc) [facility] Comment: For patients with diabetes plus 1 major ASCVD risk factor, treating to a non-HDL-C goal of <100 mg/dL (LDL-C of <70 mg/dL) is considered a therapeutic option. Blood 02/19/2025 8:07 AM CDT 02/19/2025 8:08 AM CDT Narrative [facility] - 02/22/2025 12:49 PM CDT FASTING:YES FASTING: YES us Don Santamaria MD LAB BLOOD ORDERABLES Final Res ult [facility] [address] [place] [address] * COLONOSCOPY (06/30/2018 9:24 AM CDT) Anatomical Region Laterality Modality Other Narrative Procedure Note Genevieve Cunningham MD - 06/30/2018 9:24 AM CDT [facility] Patient Name: Blake Samaniego Procedure Date: 06/30/2018 9:24 AM Date of : 1955 Admit Type: Outpatient Age: 62 Gender: Male Attending MD: Genevieve Cunningham MD Room: [facility] ENDOSCOPY ROOM 1 Note Status: Finalized Patient [...] passed under direct vision.The Pediatric Colonoscope PCF-H190L [id number] was introduced through the anus and advanced [...] 9:24 AM Procedure Code(s): --- Professional --- 48660, Colonoscopy, flexible; with biopsy, single or multiple Diagnosis Code(s): --- Professional --- Z86.010, Personal history of colonic polyps K64.8, Other hemorrhoids K62.1, Rectal polyp CPT copyright 2017 [employer]. All rights reserved. The codes documented in this report are preliminary and upon tile fitter reviewmay be revised to meet current compliance requirements. Recognized by the [place] [employer] for promoting quality in endoscopy Genevieve Cunningham MD ENDOSCOPY PROCEDURES Final Result from Last 3 Months or Most Recently Relevant to Health Maintenance Insurance MEDICARE [facility] MEDICARE [facility] Advance Directives For more information, please contact: [phone] * Full Code (Latest Code Status on File) Date Activated Date Inactivated Comments 06/30/2018 8:14 AM 06/30/2018 12:42 PM Care Teams Regional Psychiatric Director Relationship Specialty Start Date End Date Jamal Santamaria MD [address] [place] [address] PCP - General 06/25/18
[2025-06-21 14:58] LABS: Hematocrit 39.5 % (42.0-52.0); Hemoglobin 13.9 g/dL (14.0-18.0); Immature Granulocyte Percent A 0.1 % (0-0.5); Lymphocytes Absolute Auto 1.48 K/mm3 (0.9-3.2); Mean Corpuscular HGB Conc 35.2 g/dl (32-36); Mean Corpuscular Hemoglobin 32.2 pg (26-34); Mean Corpuscular Volume 91.4 fl (80-100); Nucleated Red Blood Cells Absolute Auto 0.000 K/mm3 (0.0-0.012); Nucleated Red Blood Cells Perc 0.0 % (0.0-0.2); Platelet Count Result 210 k/mm3 (150-375); Red Blood Count 4.32 M/mm3 (4.6-6.20); White Blood Count 7.6 K/mm3 (4.5-10.0)
[2025-06-21 15:06] LABS: Hemoglobin A1C 5.7 % (<5.7)
[2025-06-21 15:08] LABS: Albumin Level 4.7 g/dL (3.5-5.1); Anion Gap 8 mmol/L (4-12); Blood Urea Nitrogen 19 mg/dL (9-20); Calcium 9.1 mg/dL (8.4-10.2); Carbon Dioxide 29 mmol/L (22-30); Chloride 103 mmol/L (98-107); Estimated Glomerular Filt Rate > 60; Glucose 119 mg/dL (65-110); Potassium 4.0 mmol/L (3.4-5.0); Sodium 140 mmol/L (137-145)
== END 2025-06-21 13:46 | disposition home or self-care (01) ==
LOC: ANHSURGERY 13:53
PROVIDERS: PCP Internal Medicine; Visit Provider Orthopaedic Surgery
DX: M16.31 Unilateral osteoarthritis resulting from hip dysplasia, right hip (principal); Z01.818 Encounter for other preprocedural examination
CPT/HCPCS: 80048; 80307; 82040; 83036; 85025; 87081

== ENCOUNTER 2025-07-12 01:03 | Day surgery (SDC) | payer MEDICARE, OTHER, SELFPAY ==
[2025-06-21 14:04] VITALS: BP 141/80; PULSE 66; RESP 14; TEMP 36.9; O2SAT 100; BMI 26.2
--- NOTE | 2025-06-21 14:25 | PC.NURSE ---
Report to the Outpatient Waiting Room, entrance under the green pavilion located off [facility], at time _0600am on date __07/12/25 . Planned Procedure Time: _0730am .? Time changes happen often and if your time is changed the preop area will call you the afternoon before. - You and your visitor will be asked to self-screen and do not enter if you have any COVID symptoms. Please call surgeon if you need to reschedule. - A mask is optional within the hospital at this time. Patients may have clear liquids (water, carbonated beverages, clear teas, apple juice) until 3 hours prior to surgery with a maximum of 20 ounces. - No food from midnight until time of surgery and no smoking, or chewing tobacco (or any form of nicotine). No chewing gum, candy or mints. (0430am) Take only the following medications with a SIP of water on the morning of surgery: Tylenol as needed DO NOT STOP ANY OF YOUR OTHER PRESCRIPTION MEDICATIONS PRIOR TO SURGERY EXCEPT THE FOLLOWING Hold all vitamins and supplements for 3 days per anesthesiologist. Date of last dose is 07/08/25 Medications to discontinue per physician Aspirin and NSAIDS for [address] Thompson Date to take last dose 07/04/25 Please no make-up, nail tamazight, hairspray, perfume, deodorant, or body powder the day of surgery.? No jewelry (including any body piercings) or valuables the day of surgery, leave them at home.? Please take a shower or bath the night before, or the morning of, surgery with an antibacterial soap.? Hibicleanse scrub as needed. Wear comfortable, loose fitting clothing.? Bring overnight bag w good shoes, cell phone lay out inspector/cell home - Jewelry must be removed prior to entering the operating room.? Rings and piercings that are not removed may be cut off. - The hospital will not accept responsibility for valuables.? - Please leave all valuables, including medications, at home the day of surgery. If you are going home after surgery, a licensed tractor trailer driver must drive you home.? - NO public transportation without another adult if you receive anesthesia. - We recommend that an adult stay with you for 24 hours following discharge. - We also recommend that you do not drive, make important decision, drink alcoholic beverages, or take any drugs that were not prescribed by your health care provider for at least 24 hours after your discharge time. Follow any additional instructions given to you from your surgeon. Telephone instructions given to _Patient and asked if any additional questions and then verbalized understanding. Patient advised to call surgeon office or pre surgery nurse liaison [phone] if any additional questions.
--- NOTE | 2025-07-06 07:22 | PM.IMHP ---
H&P: HPI History of Present Illness Date/Time: 07/06/25 07:22 Chief Complaint: Patient has hip pain right. 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 He has failed conservative treatment I would like to proceed with total hip arthroplasty on the right. Review of Systems Musculoskeletal: Musculoskeletal: Reports myalgias, Reports arthralgias and Reports joint swelling Neurologic: Reports abnormal gait [facility] Past Medical History Medical History Hip arthritis Pain in left leg Hypertension Surgical History Surgical History History of left hip replacement 12/2022 Previous back surgery (~2004) Family History Family History Mother Cerebrovascular accident Social History Social History Smoking packs per day: 0.2 Smoking cigarettes per day: 4.0 Years smoked: 4 Smoking pack-years: 0.80 Smoking status: Former smoker Smoking end date: 10/14/77 Additional smoking assessment comments: DENIES ANY FORM OF TOBBACO USE Alcohol intake: current Drinks per week: 4 Substance use: never Substance use type: does not use Do You Feel Safe in your Home?: Yes Lack of Transportation: No Lack of Food: Never True Current Housing: I Have Housing Concerned About Future Housing: No Difficulty Paying Gas/Electric Bills: No Difficulty Paying for Meds: No Currently Unemployed: No Education: Bachelor's Degree Difficulty w/ Childcare or Family Care: No Living arrangements: with family Additional living arrangements comments: 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 identity (if verbalized by the patient): Male Spiritual care concerns: No Meds Home Medications and Allergies Home Medications ?Medication ?Instructions ?Recorded ?Confirmed ?Type losartan 100 1 tablet PO DAILY 12/19/22 06/21/25 History mg-hydrochlorothiazide 12.5 mg tablet aspirin 81 mg tablet,delayed 81 mg PO DAILY 02/15/25 06/21/25 History release cholecalciferol (vitamin D3) 25 25 mcg PO DAILY 02/15/25 06/21/25 History mcg (1,000 unit) capsule magnesium 250 mg tablet 250 mg PO DAILY 02/15/25 06/21/25 History atorvastatin 20 mg tablet (Lipitor) 10 mg PO DAILY 03/29/25 06/21/25 History Allergies Allergy/AdvReac Type Severity Reaction Status Date / Time Penicillins Allergy Intermediate itching Verified 06/21/25 14:01 Exam Narrative: Patient has pain with any manipulation of his right hip. Limited internal rotation is 0 external rotation of 30. He has a positive Stinchfield test. And pain to palpation manipulation. He walks with an antalgic gait. Hip X-Ray 10/04/21 Hip/Pelvis X-Ray 02/15/25 Hip MRI 10/23/21 Orthopedics Result Report 02/21/25 Lumbar Spine X-Ray 10/04/21 Lumbar Spine MRI 10/21/21
[2025-07-12] VITALS (12 sets, daily range): BP systolic 113–142; BP diastolic 60–82; PULSE 59–80; RESP 12–20; TEMP 35.8–36.7; O2SAT 93–100
--- NOTE | ~2025-07-12 | XR_ITS ---
EXAMINATION: XR surgery orthopedic DATE: 07/12/2025 11:40 INDICATION: Intraoperative evaluation during right total hip arthroplasty TECHNIQUE: Single AP fluoroscopic image of the right hip was obtained during procedure performed by Dr. Quarles. Radiologist was not present for the imaging or procedure. The amount of fluoroscopy time used during this procedure was 0.9 minutes. Total DAP was 0.293 mGym^2. COMPARISON: Radiographs dated 02/15/2025 FINDINGS: Noncemented right total hip arthroplasty which appears well seated in near- anatomic alignment on the single provided frontal projection. Expected soft tissue gas at the operative bed. No fractures identified. IMPRESSION: 1. Expected appearance of a noncemented right total hip arthroplasty, negative for postoperative purposes. See procedure note for further detail. Reviewed, dictated and finalized at location A.
--- NOTE | ~2025-07-12 | XR_ITS ---
EXAMINATION: XR hip RT 1V w AP pelvis, 07/12/2025 12:10 CDT HISTORY: POST-OP RIGHT NAVEED ANTERIOR APPROACH COMPARISON: No comparisons available. Findings: Bilateral arthroplasties intact No significant degenerative changes. Soft tissues unremarkable. Impression: No acute fracture or malalignment. Reviewed, dictated and finalized at location P. Impression: No acute fracture or malalignment.
--- OUTSIDE RECORDS SUMMARY | 2025-07-12 01:05 | XMS_ITS | Clinical Summary ---
Author Organization [facility] Address [address] [place] [address] Care Team Providers Care Inside Finisher Name Role Phone Jamal Santamaria MD Primary Care Provider Allergies Active Allergy Reactions Criticality Noted Date Comments Penicillins Itching,Hives High 06/30/2018 Medications losartan (COZAAR) 100 mg tablet [...] Active Problems Problem Noted Date Diagnosed Date Pre-op exam 07/04/2025 Nevus of choroid of left eye 01/08/2024 [...] Encounters Date Type Department Care Team Description 06/30/2025 9:30 AM CDT Office Visit [facility] Cardiology [address] [facility] [address] [facility] [address] [facility] [address] [facility] [address] [place] [address] Don Santamaria MD Pre-op exam (Primary Dx) 06/24/2025 Telephone [facility] Cardiology [address] [facility] [facility] [address] [facility] [address] [facility] [address] [place] [address] Don Santamaria MD Surgical Clearance (Right Total Hip Arthroplasty) 06/18/2025 Telephone [facility] Cardiology [address] [facility] 8th [place] [address] [place] [address] Don Santamaria MD Medical Records Request 05/20/2025 10:15 AM CDT Office Visit [facility] [address] [place] [phone] Nancyfelice Esme Riddhi, OD Glaucoma suspect of both eyes (Primary Dx); Nevus of choroid of left eye 05/20/2025 9:30 AM CDT Imaging Exam [facility] [address] [phone] Acute angle-closure glaucoma, bilateral 05/20/2025 9:20 AM CDT Imaging Exam [facility] [address] [phone] from Last 3 Months Surgical History [...] on file 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 Gender Identity Not on file Sexual Orientation Not on file Obstetrics History Last Filed Vital Signs Vital Sign Reading Time Taken Comments Blood Pressure 136/82 06/30/2025 9:54 AM CDT Pulse 50 06/30/2025 9:54 AM CDT Temperature 36.9 C (98.4 F) 06/30/2025 9:54 AM CDT Respiratory Rate 17 01/07/2025 9:15 AM CDT Oxygen Saturation 100% 06/30/2025 9:54 AM CDT Inhaled Oxygen Concentration - - Weight 85.7 kg (189 lb) 06/30/2025 9:54 AM CDT Height 180.3 cm (5' 11) 06/30/2025 9:54 AM CDT Body Mass Index 26.36 06/30/2025 9:54 AM CDT Plan of Treatment Health Maintenance Due Date Last Done Comments Albumin Creatinine Ratio, Urine 1955 Depression Screening 1955 Fall Risk Assessment 1956 Hemoglobin A1C 1956 Hepatitis C Screening 1956 Prostate Cancer Screening-PSA 1955 eGFR 1955 Foot Exam 1956 Hepatitis B Screening 1974 Abdominal Aortic Aneurysm (A AA) Screen 2021 Well Visit 65+ 2021 Covid-19 Vaccine (2024-2 6 season) 2025 07/06/2023, 09/08/2022, 02/02/2022, Additional history exists Lipid Panel 02/19/2026 02/19/2025 [...] 10/16/2017 Pneumococcal vaccine 65+ Completed 06/29/2022, 12/2017 Influenza Vaccine Completed 06/24/2025, , 06/29/2022, Additional history exists Procedures Procedure Name Priority Date/Time Associated Diagnosis [...] thickness 93 micrometers. Notes GCC: 72/73 Esme Cruzfelice OD OPHTH TOMOGRAPHY Final Result * Persaud [...] Deviation was 0.57. Pattern Deviation was 1.16. us Karl Strickland OD OPHTH VISUAL FIELD Final [...] factors. LDL-C is now calculated using the Reggie-Chapa calculation, which is a validated novel method providing better accuracy than the Friedewald equation in the estimation of LDL-C. Reggie SS et al. DIONICIO. 2013;310(19): 6593-8374 (http://education.FairShare.Aito BV/faq/GKW173) Chol/HDL ratio 2.5 <5.0 (calc) [facility] [...] 02/22/2025 12:49 PM CDT FASTING:YES FASTING: YES Don Santamaria MD LAB BLOOD ORDERABLES Final Res ult [facility] [address] [phone] * COLONOSCOPY (06/30/2018 9:24 AM CDT) Anatomical Region Laterality Modality Other Narrative Procedure Note Genevieve Cunningham MD - 06/30/2018 9:24 AM CDT [facility] Patient Name: Blake Samaniego Procedure Date: 06/30/2018 9:24 AM Date of : 1955 Admit Type: Outpatient Age: 62 Gender: Male Attending MD: Genevieve Cunningham MD [facility] 1 Note Status: Finalized [...] passed under direct vision.The Pediatric Colonoscope PCF-H190L [id number] was introduced through the anus and advanced [...] 9:24 AM Procedure Code(s): --- Professional --- 31513, Colonoscopy, flexible; with biopsy, single or multiple Diagnosis Code(s): --- Professional --- Z86.010, Personal history of colonic polyps K64.8, Other hemorrhoids K62.1, Rectal polyp CPT copyright 2017 [employer]. All rights reserved. The codes documented in this report are preliminary and upon operating systems specialist reviewmay be revised to meet current compliance requirements. Recognized by the [place] [employer] for promoting quality in endoscopy Genevieve Cunningham MD ENDOSCOPY PROCEDURES Final Result from Last 3 Months or Most Recently Relevant to Health Maintenance Insurance MEDICARE [facility] MEDICARE [facility] Advance Directives For more information, please contact: [phone] * Full Code (Latest Code Status on File) Date Activated Date Inactivated Comments 06/30/2018 8:14 AM 06/30/2018 12:42 PM Care Teams Inside Finisher Relationship Specialty Start Date End Date Jamal Santamaria MD [address] [place] [address] PCP - General 06/25/18
--- OUTSIDE RECORDS SUMMARY | 2025-07-12 01:05 | XMS_ITS | Encounter Summary ---
Author Organization [facility] Address [address] [place] [address] Phone Care Team Providers Care Data Analytics Developer Name Role Phone Jamal Santamaria MD Primary Care Provider + [phone] Reason for Visit * Reason Onset Date Comments Medical Records Request 06/18/2025 Encounter Details Date Type Department Care Team (Late st Contact Info) Description 06/18/2025 Telephone [facility] Cardiology [address] [facility] 8th [place] [address] [place] [address] Don Santamaria MD [address] [facility] [address] [place] [address] Medical Records Request Social History Tobacco Use Types Packs/Day Years Used Date Smoking Tobacco: Former Passive Smoke Exposure: Never Smokeless Tobacco: Never Comments:very little Sex and Gender Information Value Date Recorded Sex Assigned at Not on file 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 Patient is scheduled today for Pre-Op testing. FAX [phone] * Telephone Encounter - Michelle Wayne - [...] on filedocumented in this encounter Care Teams Data Analytics Developer Relationship Specialty Start Date End Date Jamal Santamaria MD [address] [place] [address] PCP - General 06/25/18 documented as of this encounter
[2025-07-12] MEDS: ACETAMINOPHEN 500 MG TABLET 1000 MG PO (06:30)
[2025-07-12] MEDS: TRANEXAMIC ACID 1,000MG/ISO100 1,000 MG/100 ML BAG 200 MG IVPB (06:48)
[2025-07-12] MEDS: VANCOMYCIN 1,250 MG/NS 250 ML 1,250 MG/250 ML BAG 166.67 MG IVPB (06:50)
--- NOTE | 2025-07-12 07:06 | WPDANESEPPF ---
Anes - Initial Pre Proc Eval Procedure: Operation Date: 07/12/25 07:30 Proposed Procedures p Right Total Hip Arthroplasty Anterior Approach - Jeremías Cardona MD Date/Time: 07/12/25 07:06 Surgeon: Jeremías Cardona MD Pre Op Diagnosis: oa right hip Patient Data Age: 69 Gender: M Height: 1.8 m Weight: 85.3 kg Last Vital Signs Temp 98.5 F 06/21/25 14:04 Pulse 66 06/21/25 14:04 Resp 14 06/21/25 14:04 BP 141/80 H 06/21/25 14:04 Pulse Ox 100 06/21/25 14:04 O2 Del Method Room Air 06/21/25 14:04 Allergies Allergy/AdvReac Type Severity Reaction Status Date / Time Penicillins Allergy Intermediate itching Verified 07/12/25 07:00 Home Medications ?Medication ?Instructions ?Recorded ?Confirmed ?Type losartan 100 1 tablet PO DAILY 12/19/22 07/12/25 History mg-hydrochlorothiazide 12.5 mg tablet aspirin 81 mg tablet,delayed 81 mg PO DAILY 02/15/25 07/12/25 History release cholecalciferol (vitamin D3) 25 25 mcg PO DAILY 02/15/25 07/12/25 History mcg (1,000 unit) capsule magnesium 250 mg tablet 250 mg PO DAILY 02/15/25 07/12/25 History atorvastatin 20 mg tablet (Lipitor) 10 mg PO DAILY 03/29/25 07/12/25 History Patient hx anesthesia problems: none Family hx anesthesia problems: none Results Review: All pre-operative results and documents have been reviewed as part of the pre-operative evaluation. [facility], [facility] Past Medical History Medical History Hip arthritis Pain in left leg Hypertension Surgical History Surgical History History of left hip replacement 12/2022 Previous back surgery (~2004) Family History Family History Mother Cerebrovascular accident Social History Social History Smoking packs per day: 0.2 Smoking cigarettes per day: 4.0 Years smoked: 4 Smoking pack-years: 0.80 Smoking status: Former smoker Smoking end date: 10/14/77 Additional smoking assessment comments: DENIES ANY FORM OF TOBBACO USE Alcohol intake: current Drinks per week: 4 Substance use: never Substance use type: does not use Do You Feel Safe in your Home?: Yes Lack of Transportation: No Lack of Food: Never True Current Housing: I Have Housing Concerned About Future Housing: No Difficulty Paying Gas/Electric Bills: No Difficulty Paying for Meds: No Currently Unemployed: No Education: Bachelor's Degree Difficulty w/ Childcare or Family Care: No Living arrangements: with family Additional living arrangements comments: 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 HTN, hyperlipidemia, hx of sleep study, negative. Pt took ARB this am. Informed Consent: The patient's anesthetic plan and its attendant risks and benefits were discussed with the patient/family/POA. Questions were solicited and answers provided to the satisfaction of the patient/family/POA.
--- NOTE | 2025-07-12 07:13 | PM.IMHP ---
H&P: HPI History of Present Illness Date/Time: 07/12/25 07:13 Chief Complaint: Right hip pain Narrative: We last saw him 6 weeks ago. Patient has moderately severe joint space narrowing of the right hip with pre-existing dysplasia right hip. He underwent left total hip replacement in December of 2022. At last visit we prescribed naproxen 75 mg twice daily. He noted that it helped his hand arthritis quite a bit. It gave him slight relief from his hip arthritic pain when he took 1 today. He still had pain with activities. He went on a trip and new you would be doing more walking and the took the diclofenac twice a day and it seemed to help his hip pain very well but he developed severe diarrhea which did resolve until he stop the diclofenac and he feels the diarrhea was caused by the diclofenac. Patient has been having a lot of pain at night the right hip he has to get out of bed. He denies any numbness or tingling. Occasionally he feels like the entire leg aches. His chief complaint is pain in the lateral right hip and anterior right hip. He has been using a cane in the left hand and notes that it does help. He has lost 10 lb as he was recently diagnosed with hypertension and this did help his blood pressure quite a bit. He has been taking ibuprofen at night since he stop taking the diclofenac. Patient notes that between and he developed problems with palpitations. He was evaluated by Dr. Jose Santamaria the plastic surgeon. He had a stress test and echocardiogram and CT coronary angiogram and had a Holter monitor 3 times. He believes that it showed PVCs. He has had no episodes for 3 or 4 months. Patient also had a sleep apnea test which showed no problems with sleep apnea with patient using his oral appliance when he sleeps. Exam today his BMI is 25.9. He walks without obvious limp and has mild discomfort with weight-bearing knee anterior lateral hip. Assessment and plan Patient has moderately severe osteoarthritis of his right hip. He has moderate pain with hip flexion moderately severe anterolateral hip pain internal rotation. Also with Stinchfield maneuver. He has experimented with diclofenac and has been using a cane off and on the left hand and he has decided that he would like to proceed with total hip replacement rather than trying to postpone hip replacement. [facility] Past Medical History Medical History Hip arthritis Pain in left leg Hypertension Surgical History Surgical History History of left hip replacement 12/2022 Previous back surgery (~2004) Family History Family History Mother Cerebrovascular accident Social History Social History Smoking packs per day: 0.2 Smoking cigarettes per day: 4.0 Years smoked: 4 Smoking pack-years: 0.80 Smoking status: Former smoker Smoking end date: 10/14/77 Additional smoking assessment comments: DENIES ANY FORM OF TOBBACO USE Alcohol intake: current Drinks per week: 4 Substance use: never Substance use type: does not use Do You Feel Safe in your Home?: Yes Lack of Transportation: No Lack of Food: Never True Current Housing: I Have Housing Concerned About Future Housing: No Difficulty Paying Gas/Electric Bills: No Difficulty Paying for Meds: No Currently Unemployed: No Education: Bachelor's Degree Difficulty w/ Childcare or Family Care: No Living arrangements: with family Additional living arrangements comments: 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 identity (if verbalized by the patient): Male Spiritual care concerns: No Meds Home Medications and Allergies Home Medications ?Medication ?Instructions ?Recorded ?Confirmed ?Type losartan 100 1 tablet PO DAILY 12/19/22 07/12/25 History mg-hydrochlorothiazide 12.5 mg tablet aspirin 81 mg tablet,delayed 81 mg PO DAILY 02/15/25 07/12/25 History release cholecalciferol (vitamin D3) 25 25 mcg PO DAILY 02/15/25 07/12/25 History mcg (1,000 unit) capsule magnesium 250 mg tablet 250 mg PO DAILY 02/15/25 07/12/25 History atorvastatin 20 mg tablet (Lipitor) 10 mg PO DAILY 03/29/25 07/12/25 History Allergies Allergy/AdvReac Type Severity Reaction Status Date / Time Penicillins Allergy Intermediate itching Verified 07/12/25 07:00 Assessment and Plan Assessment and plan (1) 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 I explained that he may have numbness around the incision. Risk of infection discussed. His teeth are in good condition. Risk of blood clots was explained. He has no personal or family history of DVT. Risk of leg length discrepancy and dislocation, component wear, loosening, and need for revision surgery for any cause was explained. Risk of bleeding and transfusion, fracture, nerve injury, and medical complications such as heart attack stroke pulmonary embolism and were reviewed. Patient understands and wishes to proceed. We will want to make sure that his plastic surgeon feels that he would be at acceptable risk to proceed with hip replacement and I would like him to ask Dr. Santamaria whether or not he needs to be continued on aspirin. He does not need the aspirin for coronary artery disease than he will stop the aspirin 7 days before surgery. He does have significant coronary artery disease and it would be best for him to continue with the aspirin. We will ask for copies of his cardiac evaluation and testing for anesthesia to review. He would like to proceed in the near future schedule his surgery as discussed. The number for his plastic surgeon is [phone].
--- NOTE | 2025-07-12 07:15 | WPDHPUPDATE1 ---
History and Physical Update Update Date/Time: 07/12/25 07:15 History and Physical has been reviewed, including an updated exam of the patient. There are NO changes in the patient's condition. Risks, benefits, and alternatives have been discussed and questions answered. Patient agrees to proceed with procedure.
[2025-07-12] MEDS: ceFAZolin 2 GM in SODIUM CHLORIDE 0.9% IV 50 ML 100 ML IVPB ×3 (07:47→21:14)
[2025-07-12] MEDS: SODIUM CHLORIDE 0.9% IV 37.7 ML, MORPHINE SULFATE INJ (*CRX) 2 MG, ROPivacaine HCL 1% 2... INFILTRATE (08:44)
[2025-07-12] MEDS: TRANEXAMIC ACID 1,000 MG/10 ML AMPUL 1000 MG IV PUSH (11:19)
[2025-07-12] MEDS: KETOROLAC 15 MG/ML VIAL (*BKC) IV PUSH (11:19)
--- NOTE | 2025-07-12 12:01 | P.OP_ITS ---
Procedure Note - Detailed Date of Procedure 07/12/25 Pre-op Diagnosis oa right hip Post-op Diagnosis Same Procedure Performed Right total hip arthroplasty direct anterior approach Surgeon Jeremías Cardona MD Transportation Attendant Nicole Anesthesia General Description of Procedure Patient was brought to the operating room and general anesthesia was administered. He received 2 g of Ancef weight based vancomycin 1 g of TXA preoperatively. If he were padded with soft roll boots applied patient transf erred to the OSI [place] table. SCDs applied the calves and running during the procedure. The right hip prepped draped usual fashion. A 10 cm longitudinal incision was made starting 3 cm lateral to the ASIS. Dissection was carried down to the fascia over the tensor fascia riki which was longitudinally incised. This was elevated off the anterior 50% of the TFL muscle interval between TFL and rectus femoris developed and crossing branches of ascending lateral femoral circumflex vessels were ligated with suture divided. Retractor was placed anteromedial to the capsule the hip abducted internally rotated the gluteus minimus elevated off the lateral capsule. Inverted T capsulotomy was performed. Femoral neck osteotomy made according to preoperative templating. Femoral head measured 55 mm in diameter. The acetabulum was quite shallow and there was a fractured posterior and posterior inferior osteophyte noted and these fragments were removed. Acetabulum was exposed labrum excised. We medialized to the medial wall with the 46 Reamer and reamed up to 53 and the a careful reaming with the 54 Reamer was performed and the 54 trial seemed to have an appropriate Press-Fit. We chose the 54 cup and inserted this and found the had no for this. We were already medialized the proper depth therefore we to go in size reamed to a 55 Reamer and the 56 trial would not seat. A light reaming with the 56 was performed and the 56 pinnacle cup chosen placed at 40? of abduction and this was fully seated with a an excellent Press-Fit. This was placed at proper anteversion. Single screw placed in the ilium for additional fixation. Thirty- six inner diameter liner placed without difficulty. Leg was externally rotated and elevated with the table hook. The conjoined tendon just lateral to the femoral neck osteotomy was released but we did not have to do a total release or flip the piriformis tendon. Bone quality again was excellent. We broached up to a size 6 and trialed. With a 1.5 had we had appropriate soft tissue tension and assessment of leg lengths under fluoro showed equal leg lengths. There was still a little bit of rotational plate on the size 6. We calcar planed and inserted the size 7 1 mm below the level of the size 6 and on read trialing again the 1.5 was appropriate in the 5 was too tight. The 1.5 gave us equal leg lengths again on fluoro. The size 7 Actis high offset stem was inserted and fully seated after final preparation of the calcar was completed. This achieved excellent Press-Fit and no cracks noted. One last trialing with the 1.5 showed this was appropriate again the 5 was tight. The 1.5 x 36 mm ceramic head was impacted on the clean and dried trunnion hip reduced stability reconfirmed. Two additional g of Ancef 1 g TXA given time wound closure. Acetabular bleeding was much more than average and is total EBL was 900 cc and 375 given back as Cell Saver. He was stable through the procedure. Once the acetabular shell and liner were fully seated stopped. Capsules reapproximated with 2. Vicryl. Local anesthetic cocktail injected in the periarticular soft tissues. The the fascia was repaired with running 1. Vicryl. There was a prominent branch of lateral femoral cutaneous nerve that traversed the distal 1/3 of the incision which we carefully preserved during the procedure was intact at time of wound closure. Drain was placed. The skin closed with 2 subcutaneous Vicryl and glue. He was transferred to postop recovery room in stable condition. HEMAL Alexandre Surgery - Charge Forward: Surgery Bettie (Right total hip arthroplasty)
[2025-07-12] MEDS: LACTATED RINGERS 1,000 ML 30 ML IV CONT (12:03)
--- NOTE | 2025-07-12 13:35 | ADMGEN ---
This patient, Blake Samaniego, was admitted to 3 [facility] Surg Room 324-01. Patient/family oriented to hospital policies and general routines including ID bracelet, bed and alarms, visiting hours, pain management, procedures, bathroom and other care routines, personal items, smoking policy, room service/diet, and visiting hours. Information on how to activate the Rapid Response Team has been discussed. Patient/Family are encouraged to report perceived risks to care and to ask questions if they do not understand what they are told or what they should do. Report received from Cari
--- NOTE | 2025-07-12 14:21 | PM.IMCN ---
Assessment and Plan Assessment and plan (1) S/P total right hip arthroplasty: Code(s): Z96.641 - Presence of right artificial hip joint Status: Acute (2) Pre-diabetes: Code(s): R73.03 - Prediabetes Status: Acute Plan 69-year-old male with past medical history of hypertension admitted after elective right total hip arthroplasty. Hospitalist team was consulted for medical management. 1. Status post right hip total arthroplasty: Postoperative care as per Orthopedic team Labs in a.m. PT/OT per protocol Pain control On Eliquis for DVT prophylaxis postoperatively 2. History of hypertension: Continue with home dose hydrochlorothiazide, losartan 3. History of hyperlipidemia: Continue with home dose statin 4. Code status: Full 5. DVT prophylaxis: Eliquis 6. Disposition: As per primary team HPI Date of Consult Consult date: 07/12/25 Requesting Physician: Jeremías Cardona MD Primary Care Provider: Jmaal Santamaria MD Consult Narrative Reason for consult: Postoperative medical management Narrative: 69 year old male with past medical history of prediabetes, hypertension admitted after elective right total hip arthroplasty using direct anterior approach. Patient has no complaints. Resting comfortably postoperatively. Review of Systems Review of Systems: All systems reviewed & are unremarkable except as noted in HPI and below PMFSH Past Medical History Medical History Hip arthritis Pain in left leg Hypertension Surgical History Surgical History History of left hip replacement 12/2022 Previous back surgery (~2004) Family History Family History Mother Cerebrovascular accident Social History Social History Smoking packs per day: 0.2 Smoking cigarettes per day: 4.0 Years smoked: 4 Smoking pack-years: 0.80 Smoking status: Never smoker Second hand tobacco smoke exposure: No Smoking end date: 10/14/77 Additional smoking assessment comments: DENIES ANY FORM OF TOBBACO USE Alcohol intake: current Drinks per week: 4 Substance use: never Substance use type: does not use Do You Feel Safe in your Home?: Yes Lack of Transportation: No Lack of Food: Never True Current Housing: I Have Housing Concerned About Future Housing: No Difficulty Paying Gas/Electric Bills: No Difficulty Paying for Meds: No Currently Unemployed: No Education: Bachelor's Degree Difficulty w/ Childcare or Family Care: No Living arrangements: with family Additional living arrangements comments: 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 identity (if verbalized by the patient): Male Spiritual care concerns: No Meds Home Medications and Allergies Home Medications ?Medication ?Instructions ?Recorded ?Confirmed ?Type losartan 100 1 tablet PO DAILY 12/19/22 07/12/25 History mg-hydrochlorothiazide 12.5 mg tablet aspirin 81 mg tablet,delayed 81 mg PO DAILY 02/15/25 07/12/25 History release cholecalciferol (vitamin D3) 25 25 mcg PO DAILY 02/15/25 07/12/25 History mcg (1,000 unit) capsule magnesium 250 mg tablet 250 mg PO DAILY 02/15/25 07/12/25 History atorvastatin 20 mg tablet (Lipitor) 10 mg PO DAILY 03/29/25 07/12/25 History Allergies Allergy/AdvReac Type Severity Reaction Status Date / Time Penicillins Allergy Intermediate itching Verified 07/12/25 07:00 Vital Signs Vital Signs - 24 hr 07/12/25 06:15 07/12/25 12:03 07/12/25 12:15 Temperature 97.3 F L 97.5 F L Pulse Rate 59 L 80 74 Respiratory Rate 18 14 16 Blood Pressure 121/82 142/81 H 141/67 H Pulse Oximetry 100 100 100 Oxygen Delivery Room Air Simple Face Mask Simple Face Mask Oxygen Flow Rate 6 6 07/12/25 12:30 07/12/25 12:45 07/12/25 13:00 Temperature 97.5 F L Pulse Rate 77 71 74 Respiratory Rate 16 12 12 Blood Pressure 138/70 125/75 124/61 Pulse Oximetry 100 93 93 Oxygen Delivery Room Air Room Air Room Air Oxygen Flow Rate 07/12/25 13:25 07/12/25 13:40 07/12/25 14:15 Temperature 96.5 F L 97.5 F L Pulse Rate 73 74 75 Respiratory Rate 17 16 20 Blood Pressure 115/65 126/65 Pulse Oximetry 97 97 98 Oxygen Delivery Room Air Oxygen Flow Rate Exam Narrative: No acute distress Const: General: comfortable HENMT: Mouth: Yes moist mucous membranes Eyes: Sclera: sclerae normal Pupils: Equal, round and reactive pupils present Neck: Neck: supple Resp: Effort & Inspection: normal respiratory effort Auscultation: clear to auscultation bilaterally Cardio: Rate: regular rate Rhythm: regular rhythm GI: GI Palp: Yes Soft to palpation Auscultation: normal bowel sounds Skin: General skin exam: normal color Neuro: Speech: normal speech Extrem: Other: Dressing over right hip with a drain present Psych: Mental Status: mental status grossly normal Quality VTE Prophylaxis VTE prophylaxis: pharmacologic ordered Hospitalist [facility] Advance Care Plan I have confirmed that the patient's Advanced Care Plan is present, code status is documented, or surrogate decision maker is listed in patient medical record.: Yes Medication Reconciliation I have utilized all available resources to obtain, update and review the patients current medications (includes all prescriptions, OTC, herbals, cannabis, and nutritional supplements).: Yes
[2025-07-12] MEDS: ACETAMINOPHEN 325 MG TABLET 650 MG PO ×3 (14:25→21:14)
[2025-07-12] MEDS: ONDANSETRON INJ 4 MG/2 ML VIAL IV PUSH (14:33)
[2025-07-12] MEDS: oxyCODONE HCL (*CRX) 5 MG TAB IR PO ×2 (16:43→21:15)
[2025-07-12] MEDS: MAGNESIUM OXIDE 200 MG TABLET PO (16:43)
[2025-07-12] MEDS: SENNA/DOCUSATE SODIUM TABLET 2 TAB PO (16:44)
[2025-07-12] MEDS: VANCOMYCIN HCL 1,000 MG in SODIUM CHLORIDE 0.9% IV 250 ML 250 MG IVPB (18:24)
[2025-07-13 00:40] VITALS: O2SAT 95
[2025-07-13] MEDS: ACETAMINOPHEN 325 MG TABLET 650 MG PO ×3 (01:09→08:09)
[2025-07-13] MEDS: oxyCODONE HCL (*CRX) 5 MG TAB IR PO ×3 (01:09→08:09)
[2025-07-13 01:31] VITALS: BP 100/51; PULSE 72; RESP 20; TEMP 36.8; O2SAT 99
[2025-07-13 01:44] VITALS: BP 114/55; PULSE 66; RESP 16; O2SAT 97
[2025-07-13] MEDS: ceFAZolin 2 GM in SODIUM CHLORIDE 0.9% IV 50 ML 100 ML IVPB (05:44)
[2025-07-13] MEDS: MAGNESIUM OXIDE 200 MG TABLET PO (05:44)
[2025-07-13 06:18] LABS: Hematocrit 32.0 % (42.0-52.0); Hemoglobin 11.2 g/dL (14.0-18.0); Immature Granulocyte Percent A 0.7 % (0-0.5); Lymphocytes Absolute Auto 1.08 K/mm3 (0.9-3.2); Mean Corpuscular HGB Conc 35.0 g/dl (32-36); Mean Corpuscular Hemoglobin 32.4 pg (26-34); Mean Corpuscular Volume 92.5 fl (80-100); Nucleated Red Blood Cells Absolute Auto 0.000 K/mm3 (0.0-0.012); Nucleated Red Blood Cells Perc 0.0 % (0.0-0.2); Platelet Count Result 220 k/mm3 (150-375); Red Blood Count 3.46 M/mm3 (4.6-6.20); White Blood Count 16.1 K/mm3 (4.5-10.0)
[2025-07-13] MEDS: VANCOMYCIN HCL 1,000 MG in SODIUM CHLORIDE 0.9% IV 250 ML 250 MG IVPB (06:35)
[2025-07-13 06:41] LABS: Anion Gap 8 mmol/L (4-12); Blood Urea Nitrogen 22 mg/dL (9-20); Calcium 8.1 mg/dL (8.4-10.2); Carbon Dioxide 26 mmol/L (22-30); Chloride 99 mmol/L (98-107); Estimated CRCL calculation 67 ml/min; Estimated Glomerular Filt Rate > 60; Glucose 117 mg/dL (65-110); Potassium 3.8 mmol/L (3.4-5.0); Sodium 133 mmol/L (137-145)
[2025-07-13 06:44] VITALS: BP 106/52; PULSE 67; RESP 20; TEMP 36.5; O2SAT 97
[2025-07-13] MEDS: CELECOXIB 200 MG CAPSULE PO (08:09)
[2025-07-13] MEDS: APIXABAN 2.5 MG TABLET PO (08:09)
[2025-07-13] MEDS: SENNA/DOCUSATE SODIUM TABLET 2 TAB PO (08:09)
[2025-07-13] MEDS: ATORVASTATIN 10 MG TABLET PO (08:09)
[2025-07-13] MEDS: DOXYCYCLINE HYCLATE 100 MG TABLET PO (08:09)
[2025-07-13] MEDS: CHOLECALCIFEROL (VITAMIN D3) 25 MCG (1,000 UNITS) TABLET PO (08:10)
--- NOTE | 2025-07-13 09:49 | PM.PNORT ---
Progress Note: A&P Assessment and Plan (1) S/P total right hip arthroplasty: Code(s): Z96.641 - Presence of right artificial hip joint Status: Acute Assessment and Plan: Patient is postop day 1 after right total hip replacement. He is doing very well. Last evening he walked around the nursing station several times because could not sleep. He is tolerating full weight-bearing very well and is quite comfortable. Labs this morning show hemoglobin 11.2 representing mild acute blood loss anemia. His wound looks fine there is no drainage on the dressing he is no significant swelling in the hip her thigh. He is neurologically intact in the right lower extremity. His blood pressure this morning was 105/51 which is little bit low for him. We talked about strategies to modify his blood pressure medication and he would feel quite comfortable cutting his losartan hydrochlorothiazide tablet in half and take the half tablet daily for a week or so and he is scheduled to follow up again with Dr. Santamaria in about 10 days. He does not feel lightheaded or symptomatic from the anemia this morning. Precautions were discussed. I reviewed his medications with him. He would like to be discharged later this morning and we will do that. We will have him resume the baby aspirin after he has finished a 10 day course of Celebrex which he uses for H 0 prophylaxis. He will be on Eliquis for DVT prophylaxis. Subjective Subjective Date/Time Seen: 07/13/25 09:49 Objective Data Vital Signs Vital Signs: Vital Signs - 24 hr 07/12/25 12:03 07/12/25 12:15 07/12/25 12:30 Temperature 36.4 C L Pulse Rate 80 74 77 Respiratory Rate 14 16 16 Blood Pressure 142/81 H 141/67 H 138/70 Pulse Oximetry 100 100 100 Oxygen Delivery Simple Face Mask Simple Face Mask Room Air Oxygen Flow Rate 6 6 07/12/25 12:45 07/12/25 13:00 07/12/25 13:25 Temperature 36.4 C L 35.8 C L Pulse Rate 71 74 73 Respiratory Rate 12 12 17 Blood Pressure 125/75 124/61 115/65 Pulse Oximetry 93 93 97 Oxygen Delivery Room Air Room Air Oxygen Flow Rate 07/12/25 13:40 07/12/25 14:15 07/12/25 14:15 Temperature 36.4 C L 35.8 C L Pulse Rate 74 75 68 Respiratory Rate 16 20 16 Blood Pressure 126/65 122/64 Pulse Oximetry 97 98 96 Oxygen Delivery Room Air Oxygen Flow Rate 07/12/25 14:54 07/12/25 15:15 07/12/25 16:58 Temperature 35.8 C L Pulse Rate 69 Respiratory Rate 16 Blood Pressure 129/60 Pulse Oximetry 99 Oxygen Delivery Room Air Room Air Oxygen Flow Rate 07/12/25 20:00 07/12/25 22:36 07/13/25 00:40 Temperature 36.7 C Pulse Rate 69 73 Respiratory Rate 16 20 Blood Pressure 113/62 Pulse Oximetry 99 97 95 Oxygen Delivery Room Air Room Air Oxygen Flow Rate 07/13/25 01:31 07/13/25 01:44 07/13/25 06:44 Temperature 36.8 C 36.5 C Pulse Rate 72 66 67 Respiratory Rate 20 16 20 Blood Pressure 100/51 L 114/55 L 106/52 L Pulse Oximetry 99 97 97 Oxygen Delivery Oxygen Flow Rate Intake/Output Intake/Output: Intake & Output 07/10/25 07/11/25 07/12/25 07/13/25 23:59 23:59 23:59 23:59 Intake Total 940 860 Output Total 38 Balance 940 822 Meds/Results Medications: Active Medications Generic Name Dose Route Start Last Admin Trade Name Freq PRN Reason Stop Dose Admin Acetaminophen 650 mg 07/12/25 13:07 07/13/25 08:09 Acetaminophen 325 Mg Tablet PO 650 mg Q4HR CHARLENE Administration Apixaban 2.5 mg 07/13/25 09:00 07/13/25 08:09 Apixaban 2.5 Mg Tablet PO 2.5 mg Q12HR CHARLENE Administration Atorvastatin Calcium 10 mg 07/13/25 09:00 07/13/25 08:09 Atorvastatin 10 Mg Tablet PO 10 mg DAILY CHARLENE Administration Celecoxib 200 mg 07/13/25 08:00 07/13/25 08:09 Celecoxib 200 Mg Capsule PO 200 mg DAILY@0800 CHARLENE Administration Doxycycline Hyclate 100 mg 07/13/25 09:00 07/13/25 08:09 Doxycycline Hyclate 100 Mg Tablet PO 07/25/25 08:59 100 mg Q12HR CHARLENE Administration Ketorolac Tromethamine 15 mg 07/13/25 18:00 Ketorolac 15 Mg/Ml Vial (*[facility]) IV PUSH 07/14/25 00:01 Q6HR CHARLENE Magnesium Oxide 200 mg 07/12/25 18:00 07/13/25 05:44 Magnesium Oxide 200 Mg Tablet PO 200 mg Q12HR@0600,1800 CHARLENE Administration Morphine Sulfate 2 mg 07/12/25 13:16 Morphine Sulfate (*Crx) 4 Mg/Ml Inj IV PUSH Q1H PRN Pain Rated 7-10 Naloxone HCl 0.1 mg 07/12/25 13:07 Naloxone Hcl 0.4 Mg/Ml Vial IV PUSH Q2M PRN Opiate Reversal Ondansetron HCl 4 mg 07/12/25 13:07 07/12/25 14:33 Ondansetron Inj 4 Mg/2 Ml Vial IV PUSH 4 mg Q4H PRN Administration Nausea And Vomiting Oxycodone HCl 5 mg 07/12/25 17:00 07/13/25 08:09 Oxycodone Hcl (*Crx) 5 Mg Tab Ir PO 5 mg Q4HR CHARLENE Administration Oxycodone HCl 5 mg 07/12/25 13:07 Oxycodone Hcl (*Crx) 5 Mg Tab Ir PO Q4H PRN Pain Rated 7-10 Senna/Docusate Sodium 2 tab 07/12/25 17:00 07/13/25 08:09 Senna/Docusate Sodium Tablet PO 2 tab BID CHARLENE Administration Vitamin D 25 mcg 07/13/25 09:00 07/13/25 08:10 Cholecalciferol (Vitamin D3) 25 Mcg (1,000 Units) Tablet PO 25 mcg DAILY CHARLENE Administration Radiology Results: ITS Impressions Intraoperative X-Ray 07/12/25 11:48 IMPRESSION: 1. Expected appearance of a noncemented right total hip arthroplasty, negative for postoperative purposes. See procedure note for further detail. Hip/Pelvis X-Ray 07/12/25 12:39 Impression: No acute fracture or malalignment. Labs Labs: Laboratory Results - last 24 hr 07/13/25 06:06 WBC 16.1 H RBC 3.46 L Hgb 11.2 L Hct 32.0 L MCV 92.5 MCH 32.4 MCHC 35.0 RDW 12.3 Plt Count 220 MPV 9.9 Immature Gran % (Auto) 0.7 H Neut % (Auto) 83.9 H Lymph % (Auto) 6.7 L [place] % (Auto) 8.6 H Eos % (Auto) 0.0 Baso % (Auto) 0.1 L Lymph # (Auto) 1.08 [place] # (Auto) 1.4 H Eos # (Auto) 0.0 Baso # (Auto) 0.0 Abs Immat Gran (auto) 0.12 H Absolute Neuts (auto) 13.5 H Absolute Nucleated RBC 0.000 Nucleated RBC % 0.0 Sodium 133 L Potassium 3.8 Chloride 99 Carbon Dioxide 26 Anion Gap 8 BUN 22 H Creatinine 1.00 Estim Creat Clear Calc 67 Estimated GFR > 60 Glucose 117 H Calcium 8.1 L
== END 2025-07-13 10:39 | disposition home or self-care (01) ==
LOC: ANHSURGERY 06:04 → ANH3MEDSUR 13:10
PROVIDERS: PCP Internal Medicine; Visit Provider Orthopaedic Surgery
PROC: (CPT 27130; principal; 2025-07-12 07:30)
DX: M16.31 Unilateral osteoarthritis resulting from hip dysplasia, right hip (principal); M25.751 Osteophyte, right hip; E78.5 Hyperlipidemia, unspecified; I10 Essential (primary) hypertension; R73.03 Prediabetes; Z79.82 Long term (current) use of aspirin; Z96.642 Presence of left artificial hip joint; Z98.1 Arthrodesis status; Z87.891 Personal history of nicotine dependence
CPT/HCPCS: 27130; 36415; 73501; 80048; 85025; 86850; 86900; 86901; 97110; 97116; 97161; 97165; 97530; 97535; 99199; J0690; A9270; C1776; J0166; J1100; J1171; J1885; J2003; J2250; J2270; J2405; J2704; J2795; J3010; J3373; J7050; J7120

== ENCOUNTER 2025-09-24 08:23 | Outpatient (CLI) | payer MEDICARE, OTHER, SELFPAY ==
--- NOTE | ~2025-09-24 | US_ITS ---
EXAMINATION: US carotid duplex BI DATE: 09/24/2025 08:53 INDICATION: Bruit TECHNIQUE: Grayscale, color Doppler, and pulsed Doppler images of the cervical carotid arteries were obtained. The degree of vessel stenosis is placed in one of the following categories: normal, <50%, 50-69%, >=70% but less than near- occlusion, near-occlusion, or total occlusion. Note that percent stenosis relative to normal distal artery lumen diameter is indirectly measured from velocity measurements as described by Andreas, et al. Radiology 2003; 229:340-346. COMPARISON: None. FINDINGS: RIGHT: The right common carotid artery (CCA) peak systolic velocity (PSV) is 110 cm/s. The right internal carotid artery (ICA) PSV is 98 cm/s. The right ICA end- diastolic velocity (EDV) is 12.0 cm/s. The right ICA/CCA PSV ratio is 0.9. Grayscale and color Doppler images yield an estimate of less than 50% diameter reduction from plaque in the ICA. There is antegrade flow in the right vertebral artery. LEFT: The left CCA PSV is 103 cm/s. The left ICA PSV is 69 cm/s. The left ICA EDV is 14 cm/s. The left ICA/CCA PSV ratio is 0.7. Grayscale and color Doppler images yield an estimate of less than 50% diameter reduction from plaque in the ICA. There is antegrade flow in the left vertebral artery. IMPRESSION: 1. Less than 50% stenosis in the right internal carotid artery. 2. Less than 50% stenosis in the left internal carotid artery. Reviewed, dictated and finalized at location A. [employer]
== END 2025-09-24 08:24 | disposition home or self-care (01) ==
LOC: CHSIMG 08:26
PROVIDERS: PCP Internal Medicine; Visit Provider Internal Medicine
DX: R09.89 Other specified symptoms and signs involving the circulatory and respiratory systems (principal); I65.23 Occlusion and stenosis of bilateral carotid arteries
CPT/HCPCS: 93880